=== PATIENT | female | born 1990 | race Caucasian/White ===

== ENCOUNTER 2018-05-01 11:17 | Emergency (ER) | payer OTHER ==
[2018-05-01 11:39] VITALS: BP 112/68
--- NOTE | 2018-05-01 12:13 | UC ---
Skin Complaint HPI - HPI Summary HPI Summary: 27 yo female presents with rash under left arm. She tells me that 2 days ago she noticed this red rash begin. Since that time has become mildly painful and seems to be spreading under her axilla. She also tells me that she is and that it is a "high-risk" . She denies fever, chills, or drainage/ bleeding from the site. - History of Current Complaint Chief Complaint: UCSkin Time Seen by Provider: 05/01/18 12:12 Stated Complaint: R[facility] Hx Obtained From: Patient Hx Last Menstrual Period: 07/03/15 Onset/Duration: Gradual Onset Skin Exposure Onset/Duration: Days Ago Timing: Constant Onset Severity: Mild Current Severity: Mild Pain Intensity: 4 Pain Scale Used: 0-10 Numeric - Allergy/Home Medications Allergies/Adverse Reactions: Allergies Allergy/AdvReac Type Severity Reaction Status Date / Time amoxicillin Allergy Hives Verified 05/01/18 11:31 cephalexin [From Keflex] Allergy Hives Verified 05/01/18 11:32 Home Medications: Home Medications Insulin GLARGINE(*) [Lantus(*)] 35 unit QAM 05/01/18 [History Confirmed 05/01/18 ] Vitamin TAB* 1 tab DAILY 05/01/18 [History Confirmed 05/01/18] metFORMIN* [Glucophage 1000 MG TAB *] 1,000 mg QPM 05/01/18 [History Confirmed 05/01/18] Review of Systems Constitutional: Negative Skin: Rash Eyes: Negative ENT: Negative Respiratory: Negative Cardiovascular: Negative Gastrointestinal: Negative Neurological: Negative Psychological: Negative All Other Systems Reviewed And Are Negative: Yes PMH/Surg Hx/FS Hx/Imm Hx Endocrine History: Diabetes - Surgical History Surgical History: Yes Surgery Procedure, Year, and Place: appy - Family History Known Family History: Positive: Diabetes - Social History Occupation: Employed Full-time Lives: With Family Alcohol Use: None Substance Use Type: None Smoking Status (MU): Heavy Every Day Tobacco Smoker Type: Cigarettes Amount Used/How Often: 1/2 pack daily Household Exposure Type: Cigarettes Physical Exam - Summary Physical Exam Summary: GENERAL: NAD. WDWN. No pain distress. SKIN: Moderate flat patch of erythema under the left axilla. No induration or edema. No streaking, bleeding, or drainage. NECK: Supple. Nontender. No lymphadenopathy. CHEST: No accessory muscle use. Breathing comfortably and in no distress. CV: RRR. Without m/r/g. NEURO: Alert. CN II-XII grossly intact. PSYCH: Age appropriate behavior. Triage Information Reviewed: Yes Vital Signs: Initial Vital Signs Temp 96.9 F 05/01/18 11:34 Pulse 99 05/01/18 11:34 Resp 18 05/01/18 11:34 BP 112/68 05/01/18 11:34 Pulse Ox 99 05/01/18 11:34 Course/Dx - Course Course Of Treatment: Suspect skin yeast infection - rx for nystatin cream. - Diagnoses Provider Diagnoses: Left axilla yeast infection Discharge - Sign-Out/Discharge Documenting (check all that apply): Discharge/Admit/Transfer - Discharge Plan Condition: Stable Disposition: HOME Prescriptions: Nystatin CREAM* [Nystatin Cream*] 1 applic TOPICAL BID #1 tube Patient Education Materials: Skin Yeast Infection (ED) Forms: *Work Release Referrals: Patricia Arnold NP [Primary Care Provider] - Additional Instructions: If you develop a fever, shortness of breath, chest pain, new or worsening symptoms - please call your PCP or go to the ED. - Billing Disposition and Condition Condition: STABLE Disposition: Home
== END 2018-05-01 12:32 | disposition home or self-care (01) ==
LOC: UCCORT 11:17
DX: O99.89 Other specified diseases and conditions complicating pregnancy, childbirth and the puerperium (principal); L04.2 Acute lymphadenitis of upper limb; O99.330 Smoking (tobacco) complicating pregnancy, unspecified trimester; F17.210 Nicotine dependence, cigarettes, uncomplicated; O24.919 Unspecified diabetes mellitus in pregnancy, unspecified trimester; Z79.4 Long term (current) use of insulin; Z88.0 Allergy status to penicillin
CPT/HCPCS: 99212; G0463

== ENCOUNTER 2018-05-20 20:41 | Emergency (ER) | payer OTHER ==
--- OUTSIDE RECORDS SUMMARY | 2018-05-20 20:51 | XMS REPORT ---
:1990 External Reference #:[id number] Author Organization [facility] Address [address], [address] [place] [address] Phone [phone] Care Team Providers Name Role Phone Khadar Arnold NP Care Team Information Double End Tenoner Operator Unavailable Khadar Arnold NP Primary Care Physician Unavailable Payers Type Date Identification Numbers Payment Provider Subscriber Commercial Effective: Policy Number: [id number] Renato Mann 2016 PayID: [id number] [address] [address] [place] [address] Problems Date Description Provider Status Onset: 12/17/2013 Tobacco user ERNESTO Lloyd Active Onset: 12/17/2013 Type II diabetes mellitus ERNESTO Lloyd Active uncontrolled Onset: 06/16/2013 Jenifer Pierson MD Inactive Inactive: 02/24/2015 Onset: 04/02/2015 Acute pharyngitis Jessica Ocasio MD Resolved Resolved: 10/15/2015 Onset: 07/22/2015 Bacterial vaginosis Resolved Resolved: 10/15/2015 Family History Date Family Member(s) Problem(s) Comments Onset: (age 50 Years) Father Stroke Father Hypertension Mother Anxiety Paternal Grandfather Diabetes Paternal Grandfather CHF with pacer Paternal Grandfather Cancer Paternal Grandmother due to Stomach Cancer () Maternal Grandfather Unknown Maternal Grandmother Diabetes Social History Type Date Description Comments Diet Diabetic 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[employer] [place] ETOH Use Rarely consumes alcohol Smoking Light tobacco smoker (10 or fewer cigarettes/day) Allergies, Adverse Reactions, Alerts Date Description Reaction Status Severity Comments 04/02/2015 Amoxicillin rash active 10/22/2015 Keflex Urticaria active 02/23/2015 NKDA inactive Medications Medication Date Status Form Strength Qnty SIG Indications Ordering Provider True Metrix Go 02/17 Active Kit w/Device 1unit use as [facility] Blood Glucose s directed Clune, MANUFACTURING PROCESS ENGINEER Meter for blood sugar monitoring True Metrix 02/17 Active Strips 150un use as [facility] Blood its directed Clune, MANUFACTURING PROCESS ENGINEER Glucosetest up to 5 Strips times daily for blood sugar testing Lancets Ultra 02/17 Active Misc Thin 30G 150un use up to [facility] Thin 30G its five times Clune, MANUFACTURING PROCESS ENGINEER daily and as needed for blood sugar testing Plus 01/23 Active Tablets 27-1mg 100ta 1 by mouth Z32.01 bs every day Clune, MANUFACTURING PROCESS ENGINEER *or generic equivalent Basaglar 04/13 Active Solution 100Unit/M 9ml inject 32 [facility] Pen-Injec L units Clune, MANUFACTURING PROCESS ENGINEER t subcutaneo usly every evening - *changed dose due to low morning sugars Wrist Brace 11/25 Active Misc 1unit use as G56.02 s directed Clune, MANUFACTURING PROCESS ENGINEER Wrist Brace 11/25 Active Misc 1unit use as G56.01 s directed Clune, MANUFACTURING PROCESS ENGINEER Pen [place] 09/10 Active Misc 30G X 8 100un use with [facility] mm its insulin Clune, MANUFACTURING PROCESS ENGINEER device as directed Metformin HCL 00 Active Tablets 1000mg 1 by mouth Unknown ER (Mod) /0000 ER 24HR every day Terbinafine 10/25 Hx Tablets 250mg 30tab one by B35.1 [facility] HCL s mouth Clune, MANUFACTURING PROCESS ENGINEER - every day 01/23 for month s Flagyl 08/16 Hx Tablets 500mg 14tab one by [facility] s mouth Clune, MANUFACTURING PROCESS ENGINEER - twice a 08/23 day x days Fluconazole 08/12 Hx Tablets 150mg 1tabs one by N76.0 [facility] mouth Clune, MANUFACTURING PROCESS ENGINEER - after 08/24 antibiotic s Sprintec 28 08/12 Hx Tablets 0.25-35mg 84tab 1 by mouth Z30.011 [facility] -mcg s every day ERNESTO Arnold - 01/20 Nystatin-Triam 05/06 Hx Ointment [id number]. 120gm apply to B37.2 [facility] cinolone 1Unit/GM- affected ERNESTO Arnold - % areas 01/20 under /2017 breasts, axilla and abdomen twice a day. Doxycycline 05/06 Hx Tablets 100mg 20tab 1 tabl by N63 [facility] Hyclate s mouth ERNESTO Arnold - twice a Levemir 04/10 Hx Solution 100Unit/M 4unit 30 units [facility] Flextouch Pen-Injec L s each ERNESTO Arnold - t evening - 04/13 increase dose by 2 units every 2-3 days until fasting sugars are below 120. Plus 08/19 Hx Tablets 27-1mg 100ta 1 by mouth Z32.01 bs every day ERNESTO Arnold - *or 05/06 equivalent Onetouch Ultra 08/19 Hx Strips 50uni [facility] and ERNESTO Arnold - as needed 02/17 testing blood sugars dx: e11.65 Simvastatin 11/25 Hx Tablets 40mg 30tab 1 by mouth E11.65 [facility] s every day ERNESTO Arnold - 08/19 Lisinopril 11/25 Hx Tablets 5mg 30tab 1 by mouth E11.65 [facility] s every day ERNESTO Arnold - 08/19 Nystatin 10/22 Hx Powder [id number] 45gm apply B37.2 Annemarie Avila, t/GM powder to M.D. - affected 08/19 area twice a day Cephalexin 10/15 Hx Capsules 500mg 30cap 1 cap ( or Annemarie Avila s tab) by M.D. - mouth 10/22 times a day Bactrim DS 10/15 Hx Tablets 800-160mg 14tab 1 tab by L02.818 Annemarie Margarita , s mouth M.D. - every 10 11/ Lantus 09/10 Hx Solution 100Unit/M QS 30 units Pen-Injec L each Clayton, MANUFACTURING PROCESS ENGINEER - t evening - 04/10 increase dose by 2 units every 2-3 days until fasting sugars are below 120. Fluconazole 09/09 Hx Tablets 150mg 4tabs one by R21 estebancarmenza mouth Clune, MANUFACTURING PROCESS ENGINEER - after 10/09 antibiotic s Lisinopril 09/09 Hx Tablets 5mg 30tab 1 by mouth E11.65 s every day Clayton MANUFACTURING PROCESS ENGINEER - 10/07 Metronidazole 07/22 Hx Tablets 500mg 14tab 2 Times A s Day - 07/30 Glyburide 07/02 Hx Tablets 2.5mg 30tab 1 by mouth s every day Clbin, MANUFACTURING PROCESS ENGINEER - *in 09/10 to 5 mg* Trazodone HCL 06/04 Hx Tablets 50mg 30tab 1 by mouth 308.3 s one hour Clayton, MANUFACTURING PROCESS ENGINEER - prior to 10/07 bed at night, if no better may try two Diflucan 06/04 Hx Tablets 150mg 7tabs take 1 by 782.1 esteban mouth once Clayton MANUFACTURING PROCESS ENGINEER - a day for 06/11 Glyburide 04/25 Hx Tablets 5mg 30tab 1 by mouth s every day Clbin, MANUFACTURING PROCESS ENGINEER - 04/25 Nystatin-Triam 04/15 Hx Ointment 470999-7. 60gm apply to R21 Khadar 1Unit/GM- affected Clune, MANUFACTURING PROCESS ENGINEER - % areas 09/09 under breasts and abdomen twice a day. Azithromycin 04/02 Hx Tablets 500mg 5tabs 1 po qd 462 Jessica Ocasio, MD - 04/15 Metformin HCL 03/12 Hx Tablets 1000mg 60tab 1 by mouth Crystal s twice a ERNESTO Arnold - day 04/02 Glimepiride 03/12 Hx Tablets 2mg 30tab one tab PO estebancarmenza s in am ERNESTO Arnold - 04/15 Fluconazole 02/06 Hx Tablets 150mg 2tabs take one tablet by MD Tanja - mouth now 04/15 and in 1 week Nystatin 02/06 Hx Cream [id number] 1unit apply to Chen t/GM s the MD Tanja - affected 04/15 area twice daily for 1 week Antipyrine-Erick 02/05 Hx Solution 5.5-1.4% 1unit 2-3 drops kirstie Chencaine s in the MD Tanja - left ear 04/15 3-4 times /2014 a day Plus 02/05 Hx Tablets 27-1mg 100ta 1 by mouth Gustavo bs every day MD Tanja - 04/15 Citalopram 09/12 Hx Tablets 20mg 30tab 1 po qd Jamee Piersonbroshelley s MD Jenifer - 04/15 Januvia 06/19 Hx Tablets 100mg 30tab 1 by mouth Dangelo s every day MD Jenifer - 04/02 Glyburide Hx Tablets 2.5mg 30tab take 1 Jenniferleigh / s tablet by ERNESTO Arnold - mouth 04/25 every Metformin HCL Hx Tablets 500mg 30tab [facility] ERNESTO Arnold - 04/25 Medications Administered in Office Medication Date Status Form Strength Qnty SIG Indications Ordering Provider PPD 08/02/ Administered Injection Khadar 2016 ERNESTO Arnold PPD 08/02/ Administered Injection Family Nurse 2016 Immunizations CPT Code Status Date Vaccine Lot # [id number] Given 08/04/2017 Influenza Virus Vaccine Quadrivalent Iiv4 [place] [id number] [id number] Given 05/06/2017 Tdap injection [id number] Vital Signs Date Vital Result Comment 04/25/2018 BP Systolic Sitting Left Arm 116 mmHg BP Diastolic Sitting Left Arm 72 mmHg Heart Rate 80 /min Respiratory Rate 18 /min Height 60 inches 5'0" Weight 219.00 lb BMI (Body Mass Index) 42.8 kg/m2 BSA (Body Surface Area) 1.94 m2 [place] body weight in kilograms 45 01/23/2018 BP Systolic Sitting Left Arm 116 mmHg BP Diastolic Sitting Left Arm 76 mmHg Heart Rate 78 /min Respiratory Rate 18 /min Height 60 inches 5'0" Weight 245.00 lb BMI (Body Mass Index) 47.8 kg/m2 BSA (Body Surface Area) 2.03 m2 [place] body weight in kilograms 45 01/20/2018 BP Systolic Sitting Left Arm 118 mmHg BP Diastolic Sitting Left Arm 72 mmHg Heart Rate 78 /min Respiratory Rate 18 /min Height 60 inches 5'0" Weight 247.00 lb BMI (Body Mass Index) 48.2 kg/m2 BSA (Body Surface Area) 2.04 m2 [place] body weight in kilograms 45 09/15/2017 BP Systolic Sitting Left Arm 152 mmHg BP Diastolic Sitting Left Arm 94 mmHg Heart Rate 88 /min Respiratory Rate 18 /min Height 60 inches 5'0" Weight 239.00 lb BMI (Body Mass Index) 46.7 kg/m2 BSA (Body Surface Area) 2.01 m2 [place] body weight in kilograms 45 Last Menstrual Period [id number] 08/12/2017 BP Systolic Sitting Left Arm 128 mmHg BP Diastolic Sitting Left Arm 76 mmHg Heart Rate 72 /min Respiratory Rate 18 /min Height 60 inches 5'0" Weight 239.00 lb BMI (Body Mass Index) 46.7 kg/m2 BSA (Body Surface Area) 2.01 m2 [place] body weight in kilograms 45 Last Menstrual Period [id number] 08/04/2017 BP Systolic 124 mmHg BP Diastolic 82 mmHg Body Temperature 97.1 F Heart Rate 108 /min Height 60 inches 5'0" Weight 239.00 lb BMI (Body Mass Index) 46.7 kg/m2 BSA (Body Surface Area) 2.01 m2 [place] body weight in kilograms 45 Last Menstrual Period [id number] O2 % BldC Oximetry 95 % 05/06/2017 BP Systolic Sitting Left Arm 118 mmHg BP Diastolic Sitting Left Arm 72 mmHg Heart Rate 80 /min Respiratory Rate 18 /min Height 60 inches 5'0" Weight 240.00 lb BMI (Body Mass Index) 46.9 kg/m2 BSA (Body Surface Area) 2.02 m2 [place] body weight in kilograms 45 Last Menstrual Period [id number] 08/19/2016 BP Systolic Sitting Left Arm 116 mmHg BP Diastolic Sitting Left Arm 70 mmHg Heart Rate 88 /min Respiratory Rate 18 /min Height 60 inches 5'0" Weight 239.12 lb BMI (Body Mass Index) 46.7 kg/m2 BSA (Body Surface Area) 2.01 m2 [place] body weight in kilograms 45 Last Menstrual Period [id number] 11/25/2015 BP Systolic 130 mmHg BP Diastolic 78 mmHg Body Temperature 97.6 F Heart Rate 88 /min Weight 240.50 lb 10/22/2015 BP Systolic 120 mmHg BP Diastolic 72 mmHg Body Temperature 97.9 F Height 60 inches 5'0" Weight 239.00 lb BMI (Body Mass Index) 46.7 kg/m2 BSA (Body Surface Area) 2.01 m2 10/15/2015 BP Systolic 118 mmHg BP Diastolic 72 mmHg Body Temperature 98.3 F Height 60 inches 5'0" Weight 236.38 lb BMI (Body Mass Index) 46.2 kg/m2 BSA (Body Surface Area) 2.00 m2 Last Menstrual Period [id number] 10/07/2015 BP Systolic 132 mmHg BP Diastolic 82 mmHg Height 60 inches 5'0" Weight 239.00 lb BMI (Body Mass Index) 46.7 kg/m2 BSA (Body Surface Area) 2.01 m2 Last Menstrual Period [id number] 09/09/2015 BP Systolic 120 mmHg BP Diastolic 78 mmHg Heart Rate 86 /min Respiratory Rate 20 /min Weight 234.50 lb 06/04/2015 BP Systolic Sitting Left Arm 116 mmHg BP Diastolic Sitting Left Arm 74 mmHg Height 60 inches 5'0" Weight 233.00 lb BMI (Body Mass Index) 45.5 kg/m2 BSA (Body Surface Area) 1.99 m2 04/15/2015 BP Systolic Sitting Left Arm 128 mmHg BP Diastolic Sitting Left Arm 78 mmHg Body Temperature 98.0 F Height 60 inches 5'0" Weight 236.00 lb BMI (Body Mass Index) 46.1 kg/m2 BSA (Body Surface Area) 2.00 m2 04/02/2015 BP Systolic Sitting Left Arm 132 mmHg BP Diastolic Sitting Left Arm 74 mmHg Body Temperature 100.1 F Height 60 inches 5'0" Weight 236.00 lb BMI (Body Mass Index) 46.1 kg/m2 BSA (Body Surface Area) 2.00 m2 02/05/2015 BP Systolic 136 mmHg BP Diastolic 84 mmHg Weight 241.00 lb 11/04/2014 BP Systolic 128 mmHg BP Diastolic 74 mmHg Body Temperature 97.9 F Weight 244.00 lb 07/24/2014 BP Systolic 118 mmHg BP Diastolic 72 mmHg Body Temperature 97.2 F Height 60 inches 5'0" Weight 252.00 lb 07/05/2014 BP Systolic 120 mmHg BP Diastolic 76 mmHg Body Temperature 98.0 F Weight 253.00 lb 06/19/2014 BP Systolic 132 mmHg BP Diastolic 80 mmHg Height 60 inches 5'0" Weight 252.00 lb 06/05/2014 Height 60 inches 5'0" Weight 256.00 lb 05/15/2014 BP Systolic 124 mmHg BP Diastolic 74 mmHg Height 60 inches 5'0" Weight 256.00 lb 04/15/2014 BP Systolic 130 mmHg BP Diastolic 80 mmHg Height 60 inches 5'0" Weight 254.00 lb 01/02/2014 BP Systolic 112 mmHg BP Diastolic 70 mmHg Height 60 inches 5'0" Weight 259.00 lb 12/24/2013 BP Systolic 120 mmHg BP Diastolic 74 mmHg Height 60 inches 5'0" Weight 259.00 lb 12/17/2013 BP Systolic 108 mmHg BP Diastolic 64 mmHg Height 60 inches 5'0" Weight 258.00 lb 11/27/2013 BP Systolic 124 mmHg BP Diastolic 76 mmHg Height 60 inches 5'0" Weight 254.00 lb 11/16/2013 BP Systolic 140 mmHg 130/90 repeat left BP Diastolic 100 mmHg 130/90 repeat left Heart Rate 76 /min Weight 256.00 lb Results Test Date Test Result H/L Range Note Urine Dipstick 04/25/2018 Ua Color <pending> Yellow Ua Clarity <pending> Clear Ua Leuko <pending> Negative Ua Nitrite <pending> Negative Ua Urobilinogen <pending> 0.2 - 1.0 E.U./dL Ua Protein 1+ High Negative Ua PH <pending> 6.5-7.5 Ua Blood <pending> Negative Ua Specific [place] 1.030 1.010-1.030 Ua Ketones large Negative Ua Bilirubin <pending> Negative Ua Glucose <pending> Negative Laboratory test 02/15/2018 HCG,Serum (Qualitative) POSITIVE (Negative) 1 , 2 finding HCG, Quant 28209.0 mIU/mL 1, 3 CBS W/Automated Diff 02/15/2018 White Blood Count 19.1 K/uL High 3.1-10.7 1 Red Blood Count 5.15 M/uL 3.90-5.40 1 Hemoglobin 15.9 gm/dL High 11.6-15.8 1 Hematocrit 45.5 % 36.0-46.1 1 Mean Cell Volume 88.3 fl 80.9-99.0 1 Mean Corpuscular HGB 30.9 pg 25.9-32.7 1 Mean Corpuscular HGB Conc 34.9 g/dL High 30.8-34.3 1 Platelet Count 379 K/uL High 155-360 1 Red Cell Distri Width SD 45.3 fl 3-47 1 Red Cell Distri Width %CV 14.2 % 11.7-14.4 1 Mean Platelet Volume 10.6 fL 8.9-12.4 1 Neut% 75.6 % High 40.4-72.8 1 Lymph % 16.3 % Low 20.0-42.0 1 [place] % 6.3 % 4.3-13.2 1 Eo% 1.6 % 0.0-6.6 1 Bas% 0.2 % 0.0-1.1 1 Neut# 14.44 K/uL High 1.8-7.0 1 Lymph # 3.11 K/uL 1.0-4.0 1 [place] # 1.21 K/uL High 0.3-0.9 1 Eos # 0.31 K/uL 0.0-0.5 1 Baso # 0.03 K/uL 0.0-0.1 1 Slide Review 02/15/2018 Slide Review DIFF ORDERED 1 Differential-WBC Confirm 02/15/2018 Total Cells Counted 100 #CELLS 1 Band% 4 % 0-8 1 Neutrophils% 76 % High 33-73 1 Lymph% 12 % Low 20-42 1 Atypical Lymph% 1 % 0-7 1 Monocyte% 6 % 0-10 1 Eosinophil% 1 % 0-5 1 Platelet Estimate NORMAL 1 Poikilocytosis 0-1+ 1 Anisocytosis 0-1+ 1 Toxic Granulation 0-1+ 1, 4 Ua RFX Micro & Culture II 02/15/2018 Urine Color YELLOW Yellow 1 Urine Clarity CLEAR Clear 1 Urine Glucose - Dipstick NEGATIVE mg/dL Negative 1 Urine Bilirubin - Dipstick NEGATIVE Negative 1 Urine Ketone >=80 mg/dL High Negative 1 Urine Specific [place] 1.010 1.010-1.030 1 Urine Blood NEGATIVE Negative 1 Urine PH 6.0 Low 6.5-7.5 1 Urine Protein - Dipstick NEGATIVE mg/dL Negative 1 Urine Urobilinogen - Dipstick 0.2 E.U./dL 0.2-1.0 1 Urine Nitrite - Dipstick NEGATIVE Negative 1 Urine Leuk Esterase TRACE Negative 1 Urine RBC 0-2 rbc/hpf 0-2 1 Urine WBC 0-2 wbc/hpf 0-7 1 Urine Epithelial Cells FEW /lpf None Seen 1 Urine Bacteria FEW None Seen 1 Source: URINE, CLEAN CAT <SEE NOTE> 1, 5 Chlamydia/GC Mary, Urine 02/15/2018 Chlamydia Trachomatis,Ur Negative Negative 1 -PCR Neisseria Gonorrhoeae,Ur -PCR Negative Negative 1, 6 Aot Request 02/15/2018 Aot Request Unable to add te <SEE NOTE> 1, 7 Tests to be added: BMP 1 Basic Metabolic Panel 02/15/2018 Glucose 65 mg/dL Low 74-106 1 BUN 8 mg/dL 7-18 1 Creatinine 0.4 mg/dL Low 0.6-1.3 1 Glom Filtration Rate, Estimate >60 mL/min >60 1 If >60 mL/min >60 1, 8 BUN/Creat 20.0 ratio 1 Sodium 138 mmol/L 136-145 1 Potassium 3.8 mmol/L 3.5-5.1 1 Chloride 111 mmol/L High 98-107 1 Carbon Dioxide 16 mmol/L Low 21-32 1 Anion Gap 11 mEq/L 8-16 1 Calcium 8.9 mg/dL 8.5-10.1 1 Laboratory test 02/01/2018 HCG, Quant 4860.0 9, 10 finding mIU/mL Laboratory test 01/25/2018 HCG, Quant 471.0 mIU/mL 11, 12 finding Glycohemoglobin A1c 01/20/2018 Glycohemoglobin (A1c) 9.5 % High 4.2-6. 13 , 14 3 eAG 226 mg/dL 13 Fungal Culture With 09/28/2017 Fungal Fluorochrome Stain Fungus Stain 15, 16 Smear Fungal Culture; Other Sources Fungus (Mycology <SEE NOTE> 15, 17 Glycohemoglobin A1c 09/15/2017 Glycohemoglobin (A1c) 10.8 % High 4.2-6.3 18, 19 eAG 263 mg/dL 18 Affirm Vaginitis Panel 08/12/2017 Trichomonas vaginalis Negative [ Negative] 20 Gardnerella vaginalis POSITIVE High [Negative] 20 Tammie species Negative [Negative] 20, 21 Comprehensive Metabolic Panel 05/06/2017 Glucose 168 mg/dL High 74-106 22 BUN 10 mg/dL 7-18 22 Creatinine 0.7 mg/dL 0.6-1.3 22 Glom Filtration Rate, Estimate >60 mL/min >60 22 If >60 mL/min >60 22, 23 BUN/Creat 14.2 ratio 22 Sodium 138 mmol/L 136-145 22 Potassium 4.0 mmol/L 3.5-5.1 22 Chloride 106 mmol/L 98-107 22 Carbon Dioxide 24 mmol/L 21-32 22 Anion Gap 8 mEq/L 8-16 22 Calcium 9.0 mg/dL 8.5-10.1 22 Total Protein 7.7 g/dL 6.4-8.2 22 Albumin 3.5 g/dL 3.4-5.0 22 Globulin 4.2 g/dL 1.9-4.3 22 Alb/Glob 0.8 ratio 22 Bilirubin,Total 0.3 mg/dL 0.2-1.0 22 Sgot/Ast 10 U/L Low 15-37 22, 24 SGPT/Alt 28 U/L 12-78 22 Alkaline Phosphatase 111 U/L 45-117 22 Glycohemoglobin A1c 05/06/2017 Glycohemoglobin (A1c) 8.2 % High 4.2-6.3 22, 25 eAG 189 mg/dL 22 LDL Cholesterol Profile 05/06/2017 Cholesterol 207 mg/dL High <200 22, 26 Triglycerides 206 mg/dL High <150 22, 27 HDL Cholesterol 45 mg/dL >40 22, 28 LDL-Cholesterol 121 mg/dL < 100 22, 29 Microalbumin,Random Urine 05/06/2017 Microalbumin,Urine 28.3 mg/L < 20.0 22 Laboratory test finding 08/11/2016 HCG, Quant 1221.0 30, 31 mIU/mL CBS W/Automated Diff 08/11/2016 White Blood Count 11.2 K/uL High 3.1-10.7 30 Red Blood Count 4.52 M/uL 3.90-5.40 30 Hemoglobin 14.2 gm/dL 11.6-15.8 30 Hematocrit 41.1 % 36.0-46.1 30 Mean Cell Volume 90.9 fl 80.9-99.0 30 Mean Corpuscular HGB 31.4 pg 25.9-32.7 30 Mean Corpuscular HGB Conc 34.5 g/dL High 30.8-34.3 30 Platelet Count 298 K/uL 155-360 30 Red Cell Distri Width SD 42.6 fl 3-47 30 Red Cell Distri Width %CV 13.1 % 11.7-14.4 30 Mean Platelet Volume 10.8 fL 8.9-12.4 30 Neut% 68.4 % 40.4-72.8 30 Lymph % 21.3 % 17.0-46.1 30 [place] % 7.6 % 4.3-13.2 30 Eo% 2.4 % 0.0-6.6 30 Bas% 0.3 % 0.0-1.1 30 Neut# 7.65 K/uL High 1.8-7.0 30 Lymph # 2.38 K/uL 1.8-7.0 30 [place] # 0.85 K/uL 0.3-0.9 30 Eos # 0.27 K/uL 0.0-0.5 30 Baso # 0.03 K/uL 0.0-0.1 30 Slide Review 08/11/2016 Slide Review (SEE NOTE) 30, 32 Glycohemoglobin A1c 11/25/2015 Glycohemoglobin (A1c) 9.2 % High 4.2-6.3 33 eAG 217 mg/dL CMP Panel (14 Test) 11/25/2015 Glucose 157 mg/dL High 74-106 BUN 11 mg/dL 7-18 Creatinine 0.7 mg/dL 0.6-1.3 Glom Filtration Rate, Estimate >60 mL/min >60 If >60 mL/min >60 34 BUN/Creat 15.7 ratio Sodium 138 mmol/L 136-145 Potassium 4.0 mmol/L 3.5-5.1 Chloride 107 mmol/L 98-107 Carbon Dioxide 26 mmol/L 21-32 Anion Gap 5 mEq/L Low 8-16 Calcium 8.4 mg/dL Low 8.5-10.1 Total Protein 7.1 g/dL 6.4-8.2 Albumin 3.3 g/dL Low 3.4-5.0 Globulin 3.8 g/dL 1.9-4.3 Alb/Glob 0.9 ratio Bilirubin,Total 0.3 mg/dL 0.2-1.0 Sgot/Ast 8 U/L Low 15-37 35 SGPT/Alt 18 U/L 12-78 Alkaline Phosphatase 85 U/L 45-117 Routine Culture W/ Gram Stain 10/15/2015 Gram Stain See Note 36 Aerobic Culture See Note 37 Laboratory test finding 10/07/2015 Conventional Pap HR- 38 Glycohemoglobin A1c 09/09/2015 Glycohemoglobin (A1c) 9.8 % High 4.2-6.3 39 eAG 235 mg/dL Comprehensive Metabolic Panel 09/09/2015 Glucose 301 mg/dL High 74-106 BUN 13 mg/dL 7-18 Creatinine 1.0 mg/dL 0.6-1.3 Glom Filtration Rate, Estimate >60 mL/min >60 If >60 mL/min >60 40 BUN/Creat 13.0 ratio Sodium 136 mmol/L 136-145 Potassium 3.9 mmol/L 3.5-5.1 Chloride 104 mmol/L 98-107 Carbon Dioxide 24 mmol/L 21-32 Anion Gap 8 mEq/L 8-16 Calcium 9.4 mg/dL 8.5-10.1 Total Protein 7.4 g/dL 6.4-8.2 Albumin 3.6 g/dL 3.4-5.0 Globulin 3.8 g/dL 1.9-4.3 Alb/Glob 0.9 ratio Bilirubin,Total 0.4 mg/dL 0.2-1.0 Sgot/Ast 14 U/L Low 15-37 41 SGPT/Alt 23 U/L 12-78 Alkaline Phosphatase 109 U/L 45-117 Laboratory test finding 09/09/2015 Estimated Average Glucose (eAG) 235 Hemoglobin A1c 9.8 High 4.2-6.3 Sodium Level 136 136-145 Chlamydia/GC Mary 07/22/2015 Chlamydia Trachomatis, Mary Negative Negative Neisseria Gonorrhoeae, Mary Negative Negative Please note: See Note 42 Laboratory test finding 07/22/2015 Bedside Glucose 280 High 70-110 Laboratory test finding 07/22/2015 Chlamydia/GC Mary, Urine See Note 43 Urine HCG (Qualitative) NEGATIVE Negative 44 Urine Screen 07/22/2015 Urine Color STRAW Yellow Urine Clarity SL CLOUDY Clear Urine Glucose - Dipstick >=1000 mg/dL High Negative Urine Bilirubin - Dipstick NEGATIVE Negative Urine Ketone NEGATIVE mg/dL Negative Urine Specific [place] 1.010 1.010-1.030 Urine Blood NEGATIVE Negative Urine PH 7.5 6.5-7.5 Urine Protein - Dipstick NEGATIVE mg/dL Negative Urine Urobilinogen - Dipstick 0.2 E.U./dL 0.2-1.0 Urine Nitrite - Dipstick NEGATIVE Negative Urine Leuk Esterase NEGATIVE Negative Laboratory test finding 07/22/2015 Urine Bilirubin Negative Negative Urine Ketones Negative Negative Urine Leukocyte Esterase Negative Negative Urine Nitrite Negative Negative Urine Protein Negative Negative Urine Urobilinogen 0.2 0.2-1.0 Laboratory test finding 07/22/2015 Point of Care Glucose 385 mg/dL High 74 -106 45 Laboratory test finding 06/04/2015 Microalbumin,Random See Note 46 Urine Glycohemoglobin A1c 06/04/2015 Glycohemoglobin (A1c) 8.5 % High 4.2-6.3 47 eAG 197 mg/dL Glycohemoglobin A1c 04/15/2015 Glycohemoglobin (A1c) 10.0 % High 4.2-6.3 48 eAG 240 mg/dL Laboratory test finding 04/02/2015 Throat Strep Screen See Note 49 Basic Metabolic Panel 03/15/2015 Glucose 436 mg/dL High 74-106 50 BUN 10 mg/dL 7-18 Creatinine 0.9 mg/dL 0.6-1.3 Glom Filtration Rate, Estimate >60 mL/min >60 If >60 mL/min >60 51 BUN/Creat 11.1 ratio Sodium 138 mmol/L 136-145 Potassium 4.2 mmol/L 3.5-5.1 Chloride 104 mmol/L 98-107 Carbon Dioxide 23 mmol/L 21-32 Anion Gap 11 mEq/L 8-16 Calcium 8.4 mg/dL Low 8.5-10.1 Laboratory test 03/15/2015 HCG,Serum(Qualitative) NEGATIVE (Negative) 52 finding Glycohemoglobin A1c 03/15/2015 Glycohemoglobin (A1c) 11.5 % High 4.2-6.3 53 eAG 283 mg/dL CBS W/Automated Diff 03/15/2015 White Blood Count 11.0 K/uL High 3.1-10.7 Red Blood Count 5.09 M/uL 3.90-5.40 Hemoglobin 15.9 gm/dL High 11.6-15.8 Hematocrit 44.9 % 36.0-46.1 Mean Cell Volume 88.2 fl 80.9-99.0 Mean Corpuscular HGB 31.2 pg 25.9-32.7 Mean Corpuscular HGB Conc 35.4 g/dL High 30.8-34.3 Platelet Count 326 K/uL 155-360 Red Cell Distri Width SD 40.8 fl 3-47 Red Cell Distri Width %CV 12.9 % 11.7-14.4 Mean Platelet Volume 11.1 fL 8.9-12.4 Neut% 68.8 % 40.4-72.8 Lymph % 19.6 % 17.0-46.1 [place] % 7.7 % 4.3-13.2 Eo% 3.4 % 0.0-6.6 Bas% 0.5 % 0.0-1.1 Neut# 7.56 K/uL High 1.0-7.0 Lymph # 2.16 K/uL 1.8-7.0 [place] # 0.85 K/uL 0.3-0.9 Eos # 0.37 K/uL 0.0-0.5 Baso # 0.06 K/uL 0.0-0.1 Urinalysis With Microscopic 03/15/2015 Urine Color YELLOW Yellow Urine Clarity CLEAR Clear Urine Glucose - Dipstick >=1000 mg/dL High Negative Urine Bilirubin - Dipstick NEGATIVE Negative Urine Ketone NEGATIVE mg/dL Negative Urine Specific [place] 1.010 1.010-1.030 Urine Blood MODERATE High Negative Urine PH 6.5 6.5-7.5 Urine Protein - Dipstick NEGATIVE mg/dL Negative Urine Urobilinogen - Dipstick 0.2 E.U./dL 0.2-1.0 Urine Nitrite - Dipstick NEGATIVE Negative Urine Leuk Esterase NEGATIVE Negative Urine RBC 0-2 rbc/hpf 0-2 Urine WBC 0-2 wbc/hpf 0-7 Urine Epithelial Cells FEW NONESEEN/lpf Urine Bacteria VERY FEW NONESEEN Laboratory test finding 03/15/2015 Urine Screen See Note 54 Affirm 02/05/2015 Tammie species Positive High [Negative] Gardnerella vaginalis Negative [Negative] Trichomonas vaginalis Negative [Negative] Laboratory test finding 02/05/2015 Microalbumin,Random Urine 35.9 mg/L < 20.0 55 CBC/Manual Differential 02/05/2015 Atypical Lymph% 3 % 0-7 55 Band% 2 % 0-8 55 Eosinophil% 1 % 0-5 55 Hematocrit 45.6 % 36.0-46.1 55 Hemoglobin 15.5 gm/dL 11.6-15.8 55 Lymph% 18 % 17-56 55 Mean Cell Volume 89.1 fl 80.9-99.0 55 Mean Corpuscular HGB 30.3 pg 25.9-32.7 55 Mean Corpuscular HGB Conc 34.0 g/dL 30.8-34.3 55 Mean Platelet Volume 10.9 fL 8.9-12.4 55 Monocyte% 2 % 0-10 55 Neutrophils% 74 % High 33-73 55 Platelet Count 302 K/uL 155-360 55 Platelet Estimate Normal 55 RBC Morphology Normal 55 Red Blood Count 5.12 M/uL 3.90-5.40 55 Red Cell Distri Width %CV 13.1 % 11.7-14.4 55 Total Cells Counted 100 #CELLS 55 White Blood Count 10.4 K/uL 3.1-10.7 55 Comprehensive Metabolic Panel 02/05/2015 Alb/Glob 0.9 ratio 55 Albumin 3.5 g/dL 3.4-5.0 55 Alkaline Phosphatase 101 U/L 45-117 55 Anion Gap 10 mEq/L 8-16 55 BUN 8 mg/dL 7-18 55 BUN/Creat 10.0 ratio 55 Bilirubin,Total 0.3 mg/dL 0.2-1.0 55 Calcium 9.0 mg/dL 8.5-10.1 55 Carbon Dioxide 24 mmol/L 21-32 55 Chloride 105 mmol/L 98-107 55 Creatinine 0.8 mg/dL 0.6-1.3 55 Globulin 3.7 g/dL 1.9-4.3 55 Glom Filtration Rate, Estimate >60 mL/min >60 55 Glucose 254 mg/dL High 74-106 55 If >60 mL/min >60 55, 56 Potassium 3.9 mmol/L 3.5-5.1 55 SGPT/Alt 16 U/L 12-78 55 Sgot/Ast 9 U/L Low 15-37 55, 57 Sodium 139 mmol/L 136-145 55 Total Protein 7.2 g/dL 6.4-8.2 55 Glycohemoglobin A1c 02/05/2015 Glycohemoglobin (A1c) 11.7 % High 4.2-6.3 55, 58 eAG 289 mg/dL 55 LDL Cholesterol Profile 02/05/2015 Cholesterol 193 mg/dL < 200 55, 59 HDL Cholesterol 32 mg/dL > 40 55, 60 LDL-Cholesterol 116 mg/dL < 100 55, 61 Triglycerides 226 mg/dL < 150 55, 62 Laboratory test finding 07/24/2014 HPV High Risk Negative Negative 63 Laboratory test finding 07/24/2014 Cervical Biopsy See Note 64 Laboratory test finding 07/24/2014 ThinPrep Pap: See Note 65 Cervix/Endocx Affirm 07/05/2014 Tammie Negative 66 Gardnerella Negative Trichomonas Negative Laboratory test finding 07/05/2014 Microalbumin,Random Urine 18.4 mg/L 0.0-18.5 Urine Culture See Note 67 Glycohemoglobin A1c 07/05/2014 Glycohemoglobin (A1c) 10.1 % High 4.8-6.0 68 eAG 243 mg/dL Laboratory test finding 06/19/2014 Urine Culture See Note 69 Laboratory test finding 05/13/2014 HCG, Quant 33.0 mIU/mL 70 Laboratory test finding 05/08/2014 Bas% 0.2 % 0.0-1.1 Baso # 0.03 K/uL 0.0-0.1 Eo% 1.1 % 0.0-6.6 Eos # 0.16 K/uL 0.0-0.5 HCG, Quant 952.0 mIU/mL 71 Hematocrit 41.0 % 36.0-46.1 Hemoglobin 14.6 gm/dL 11.6-15.8 Lymph # 2.30 K/uL 0.8-3.4 Lymph % 15.3 % Low 17.0-46.1 Mean Cell Volume 88.4 fl 80.9-99.0 Mean Corpuscular HGB 31.5 pg 25.9-32.7 Mean Corpuscular HGB Conc 35.6 g/dL High 30.8-34.3 Mean Platelet Volume 10.1 fL 8.9-12.4 [place] # 0.96 K/uL High 0.3-0.9 [place] % 6.4 % 4.3-13.2 Neut# 11.59 K/uL High 1.0-7.0 Neut% 77.0 % High 40.4-72.8 Platelet Count 329 K/uL 155-360 Red Blood Count 4.64 M/uL 3.90-5.40 Red Cell Distri Width %CV 13.5 % 11.7-14.4 Red Cell Distri Width SD 43.0 fl 3-47 White Blood Count 15.0 K/uL High 3.1-10.7 Comprehensive Metabolic Panel 05/08/2014 Alb/Glob 0.8 ratio Albumin 3.5 g/dL 3.5-5.0 Alkaline Phosphatase 88 U/L 50-136 Anion Gap 13 mEq/L 8-16 BUN 5 mg/dL 5-23 BUN/Creat 7.1 ratio Bilirubin,Total 0.3 mg/dL 0.2-1.2 Calcium 8.6 mg/dL 8.5-10.1 Carbon Dioxide 22 mEq/L 18-29 Chloride 107 mmol/L 98-107 Creatinine 0.7 mg/dL 0.5-1.4 Globulin 4.2 g/dL 1.9-4.3 Glom Filtration Rate, Estimate >60 mL/min >60 Glucose 144 mg/dL High 76-115 If >60 mL/min >60 72 Potassium 3.8 mmol/L 3.5-5.1 SGPT/Alt 24 U/L Low 30-65 Sgot/Ast 8 U/L Low 16-40 Sodium 138 mmol/L 136-145 Total Protein 7.7 g/dL 6.3-8.0 Laboratory test finding 05/08/2014 Urine Screen See Note 73 Urinalysis With Microscopic 05/08/2014 Urine Amorph Sediment Very Few Negative Urine Bacteria Very Few None Seen Urine Bilirubin - Dipstick Negative Negative Urine Blood Large High Negative Urine Clarity SL Cloudy Clear Urine Color Yellow Yellow Urine Epithelial Cells Very Few None Seen /lpf Urine Glucose - Dipstick Negative mg/dL Negative Urine Ketone Trace mg/dL High Negative Urine Leuk Esterase Small High Negative Urine Nitrite - Dipstick Negative Negative Urine PH 6.0 Low 6.5-7.5 Urine Protein - Dipstick Trace mg/dL Negative Urine RBC >50 rbc/hpf High 0-7 Urine Specific [place] <=1.005 Low 1.010-1.030 Urine Urobilinogen - Dipstick 0.2 E.U./dL 0.2-1.0 Urine WBC 2-5 wbc/hpf 0-7 Laboratory test finding 01/01/2014 Abo/RH Type See Note 74 Culture If Indicated Comment See Note 75 HCG, Quant 3111.0 mIU/mL 76 Urine Culture See Note 77 Urine HCG (Qualitative) See Note 78 Urine Screen See Note 79 Urinalysis With Microscopic 01/01/2014 Urine Bacteria Many None Seen High Urine Bilirubin - Dipstick Negative Negative Urine Blood Large High Negative Urine Clarity Clear Clear Urine Color Yellow Yellow Urine Epithelial Cells Few None Seen /lpf Urine Glucose - Dipstick 100 mg/dL High Negative Urine Ketone 15 mg/dL High Negative Urine Leuk Esterase Trace High Negative Urine Nitrite - Dipstick Positive High Negative Urine PH 6.0 Low 6.5-7.5 Urine Protein - Dipstick Negative mg/dL Negative Urine RBC 10-20 rbc/hpf High 0-7 Urine Specific [place] 1.025 1.010-1.030 Urine Urobilinogen - Dipstick 0.2 E.U./dL 0.2-1.0 Urine WBC 0-2 wbc/hpf 0-7 GC / Chlamydia 11/16/2013 Chlamydia Negative GC Negative 80 Affirm 11/16/2013 Tammie Negative 81 Gardnerella Positive Trichomonas Negative Laboratory test finding 11/16/2013 Hemoglobin A1c 9.9 % High Less than 6.0 82 Insulin Level 41.9 mcIU/mL 2.6 - 24.9 83 TSH (Thyroid Stimulating Horm) 1.55 miu/mL 0.34-5.60 Vitamin D 1,25-Dihydroxy 52 pg/mL 18-78 84 Comp Metabolic Panel 11/16/2013 Albumin 3.5 g/dL Low 3.6-5.4 Albumin/Globulin Ratio 1.3 1-3 Alkaline Phosphatase 83 U/L 30-110 Alt 18 U/L 14-54 Anion Gap 7.0 mmol/L 2-11 Ast 16 U/L 12-42 BUN/Creatinine Ratio 15.0 8-20 Blood Urea Nitrogen 9 mg/dL 6-24 Calcium 9.2 mg/dL 8.1-9.9 Chloride 102 mmol/L 101-111 Co2 Carbon Dioxide 24.0 mmol/L 22-32 Creatinine 0.60 mg/dL 0.50-1.40 Egfr 156.7 >60 85 Egfr Non- 121.8 >60 Globulin 2.8 g/dL 2-4 Glucose 359 mg/dL High 70-100 Potassium 4.0 mmol/L 3.5-5.0 Sodium 133 mmol/L 133-145 Total Bilirubin 0.3 mg/dL Low 0.4-1.5 Total Protein 6.3 g/dL 6.2-8.1 Lipid Profile (Trig/Chol/HDL) 11/16/2013 Cholesterol 270 mg/dL High Less than 200 Cholesterol/HDL Ratio 5.7 Average High 1-4.44 HDL Cholesterol 47 mg/dL 40-60 86 LDL Cholesterol (See Note) Less Than 100 87 Triglycerides 492 mg/dL High 40-200 Laboratory test finding 06/26/2013 Bas% 0.2 % 0.0-1.1 Baso # 0.03 K/uL 0.0-0.1 Eo% 2.6 % 0.0-6.6 Eos # 0.38 K/uL 0.0-0.5 HCG, Quant 1594.0 mIU/mL 88 Hematocrit 40.3 % 36.0-46.1 Hemoglobin 14.1 gm/dL 11.6-15.8 Lymph # 2.07 K/uL 0.8-3.4 Lymph % 14.1 % Low 17.0-46.1 Mean Cell Volume 89.8 fl 80.9-99.0 Mean Corpuscular HGB 31.4 pg 25.9-32.7 Mean Corpuscular HGB Conc 35.0 g/dL High 30.8-34.3 Mean Platelet Volume 10.4 fL 8.9-12.4 [place] # 0.96 K/uL High 0.3-0.9 [place] % 6.6 % 4.3-13.2 Neut# 11.21 K/uL High 1.0-7.0 Neut% 76.5 % High 40.4-72.8 Platelet Count 325 K/uL 155-360 Red Blood Count 4.49 M/uL 3.90-5.40 Red Cell Distri Width %CV 12.8 % 11.7-14.4 Red Cell Distri Width SD 41.4 fl 3-47 White Blood Count 14.7 K/uL High 3.1-10.7 Laboratory test finding 06/26/2013 Products Of Conception See Note 89 Urinalysis With 06/25/2013 Urine Bilirubin - Negative Negative Microscopic Dipstick Urine Blood Large High Negative Urine Clarity Clear Clear Urine Color Straw Yellow Urine Epithelial Cells Very Few None Seen /lpf Urine Glucose - Dipstick Negative mg/dL Negative Urine Ketone Negative mg/dL Negative Urine Leuk Esterase Negative Negative Urine Nitrite - Dipstick Negative Negative Urine PH 6.0 Low 6.5-7.5 Urine Protein - Dipstick Negative mg/dL Negative Urine RBC 10-20 rbc/hpf High 0-7 Urine Specific [place] 1.010 1.010-1.030 Urine Urobilinogen - Dipstick 0.2 E.U./dL 0.2-1.0 Urine WBC 2-5 wbc/hpf 0-7 Laboratory test finding 06/25/2013 Bas% 0.3 % 0.0-1.1 Baso # 0.03 K/uL 0.0-0.1 Eo% 4.5 % 0.0-6.6 Eos # 0.45 K/uL 0.0-0.5 HCG, Quant 3200.0 mIU/mL 90 Hematocrit 41.0 % 36.0-46.1 Hemoglobin 14.0 gm/dL 11.6-15.8 Lymph # 2.01 K/uL 0.8-3.4 Lymph % 20.3 % 17.0-46.1 Mean Cell Volume 90.9 fl 80.9-99.0 Mean Corpuscular HGB 31.0 pg 25.9-32.7 Mean Corpuscular HGB Conc 34.1 g/dL 30.8-34.3 Mean Platelet Volume 10.3 fL 8.9-12.4 [place] # 0.76 K/uL 0.3-0.9 [place] % 7.7 % 4.3-13.2 Neut# 6.67 K/uL 1.0-7.0 Neut% 67.2 % 40.4-72.8 Platelet Count 283 K/uL 155-360 Red Blood Count 4.51 M/uL 3.90-5.40 Red Cell Distri Width %CV 12.8 % 11.7-14.4 Red Cell Distri Width SD 41.3 fl 3-47 Urine Screen See Note 91 White Blood Count 9.9 K/uL 3.1-10.7 Type And Screen 06/13/2013 Antibody Screen Negative Negative Patient Blood Type A Pos Genital Culture W/ Gram Stain 06/13/2013 Genital Culture See Note 92 Gram Stain See Note 93 Chlamydia/GC Amplification 06/13/2013 Chlamydia Trachomatis, Negative Negative Mary Neisseria Gonorrhoeae, Mary Negative Negative Please note: See Note 94 Laboratory test finding 06/13/2013 Antibody Detection See Note 95 Bas% 0.2 % 0.0-1.1 Baso # 0.04 K/uL 0.0-0.1 Eo% 2.8 % 0.0-6.6 Eos # 0.47 K/uL 0.0-0.5 Hematocrit 42.6 % 36.0-46.1 Hemoglobin 14.5 gm/dL 11.6-15.8 Hepatitis B Surface Antigen Nonreactive Nonreactive 96 Lead,Blood (Adult) 1 g/dL 0-19 97 Lymph # 2.84 K/uL 0.8-3.4 Lymph % 16.6 % Low 17.0-46.1 Mean Cell Volume 90.1 fl 80.9-99.0 Mean Corpuscular HGB 30.7 pg 25.9-32.7 Mean Corpuscular HGB Conc 34.0 g/dL 30.8-34.3 Mean Platelet Volume 10.6 fL 8.9-12.4 [place] # 1.10 K/uL High 0.3-0.9 [place] % 6.4 % 4.3-13.2 Neut# 12.61 K/uL High 1.0-7.0 Neut% 74.0 % High 40.4-72.8 Platelet Count 352 K/uL 155-360 Rapid Plasma Reagin Nonreactive Nonreactive 98 Red Blood Count 4.73 M/uL 3.90-5.40 Red Cell Distri Width %CV 12.7 % 11.7-14.4 Red Cell Distri Width SD 41.0 fl 3-47 Rubella IgG Antibody Reactive Reactive Urine Culture See Note 99 Varicella-Zoster Virus IgG Ab 1.90 Immune>1.09in 100 White Blood Count 17.1 K/uL High 3.1-10.7 Laboratory test finding 06/13/2013 ThinPrep Pap: Cervix/Endocx See Note 101 Laboratory test finding 06/07/2013 Culture If Indicated Comment See Note 102 Urine Culture See Note 103 Urine HCG (Qualitative) Positive High Negative Urine Screen See Note 104 Urinalysis With Microscopic 06/07/2013 Urine Bacteria Very Few None Seen Urine Bilirubin - Dipstick Negative Negative Urine Blood Moderate High Negative Urine Clarity Clear Clear Urine Color Yellow Yellow Urine Epithelial Cells Few None Seen /lpf Urine Glucose - Dipstick Negative mg/dL Negative Urine Ketone Negative mg/dL Negative Urine Leuk Esterase Moderate High Negative Urine Nitrite - Dipstick Negative Negative Urine PH 6.0 Low 6.5-7.5 Urine Protein - Dipstick Negative mg/dL Negative Urine RBC 0-2 rbc/hpf 0-7 Urine Specific [place] <=1.005 Low 1.010-1.030 Urine Urobilinogen - Dipstick 0.2 E.U./dL 0.2-1.0 Urine WBC 20-30 wbc/hpf High 0-7 1 BACK PAIN, CRAMPS, 7 WEEKS 2 Method: [employer] QuickVue One-Step Immunoassay 3 Approximate Gestational Age and Total BHCG Range: 0.2 - 1 Week........................5-50 mIU/mL 1 - 2 Weeks.....................50-500 mIU/mL 2 - 3 Weeks..................100-5,000 mIU/mL 3 - 4 Weeks.................500-10,000 mIU/mL 4 - 5 Weeks...............1,000-50,000 mIU/mL 5 - 6 Weeks.............10,000-100,000 mIU/mL 6 - 8 Weeks.............15,000-200,000 mIU/mL 2 - 3 Months............10,000-100,000 mIU/mL 4 VACUOLATED POLYS AND BANDS PRESENT 5 URINE, CLEAN CATCH 6 A negative result for either C. trachomatis and/or N. gonorrhoeae does not preclued an infection because results are dependent on adequate specimen collection, absence of inhibitors, and sufficient DNA to be detected. 7 Unable to add tests SPECIMEN IS HEMOLYZED CALLED CATY Fink NP IN ER TO INFORM TEST(S) COULD NOT BE ADDED AT 2321 02/15/18 by LAB.TOW Tests: BMP Instructions: 8 Note: Persistent reduction for 3 months or more in an eGFR <60 mL/min/1.73 m2 defines CKD. Patients with eGFR values >/=60 mL/min/1.73 m2 may also have CKD if evidence of persistent proteinuria is present. The original MDRD equation for estimated GFR is not valid for patients less than 18 years of age. Additional information may be found at www.kdoqi.org. 9 Z32.01 N96 O09.91 10 Approximate Gestational Age and Total BHCG Range: 0.2 - 1 Week........................5-50 mIU/mL 1 - 2 Weeks.....................50-500 mIU/mL 2 - 3 Weeks..................100-5,000 mIU/mL 3 - 4 Weeks.................500-10,000 mIU/mL 4 - 5 Weeks...............1,000-50,000 mIU/mL 5 - 6 Weeks.............10,000-100,000 mIU/mL 6 - 8 Weeks.............15,000-200,000 mIU/mL 2 - 3 Months............10,000-100,000 mIU/mL 11 N91.2 12 Approximate Gestational Age and Total BHCG Range: 0.2 - 1 Week........................5-50 mIU/mL 1 - 2 Weeks.....................50-500 mIU/mL 2 - 3 Weeks..................100-5,000 mIU/mL 3 - 4 Weeks.................500-10,000 mIU/mL 4 - 5 Weeks...............1,000-50,000 mIU/mL 5 - 6 Weeks.............10,000-100,000 mIU/mL 6 - 8 Weeks.............15,000-200,000 mIU/mL 2 - 3 Months............10,000-100,000 mIU/mL 13 E11.65 14 Elevated levels of HbA1c suggest the need for more aggressive treatment of glycemia. The [place] [employer] recommends that a primary goal of therapy should be a HbA1c of <7% and that physicians should re-evaluate the treatment regimen in patients with HbA1c values consistently >8%. 15 L60.9 16 Final report Result 1 Hyphae observed 17 Fungus (Mycology) Culture Final report Result 1 Penicillium species Result 2 Scopulariopsis species Performed at: RN - [facility] [address] [id number] Camera Repairer: Shelby York MD, Phone: [phone] 18 E11.65 19 Elevated levels of HbA1c suggest the need for more aggressive treatment of glycemia. The [place] [employer] recommends that a primary goal of therapy should be a HbA1c of <7% and that physicians should re-evaluate the treatment regimen in patients with HbA1c values consistently >8%. 20 N76.0 21 Method: BD Affirm VPIII DNA Probe Assay 22 E11.65 23 Note: Persistent reduction for 3 months or more in an eGFR <60 mL/min/1.73 m2 defines CKD. Patients with eGFR values >/=60 mL/min/1.73 m2 may also have CKD if evidence of persistent proteinuria is present. The original MDRD equation for estimated GFR is not valid for patients less than 18 years of age. Additional information may be found at www.kdoqi.org. 24 Values below the stated reference ranges of AST and ALT can be seen in normal populations. Clinical correlation is suggested. 25 Elevated levels of HbA1c suggest the need for more aggressive treatment of glycemia. The [place] [employer] recommends that a primary goal of therapy should be a HbA1c of <7% and that physicians should re-evaluate the treatment regimen in patients with HbA1c values consistently >8%. 26 Reference Guidelines*: Desirable: ........... < 200 mg/dL Borderline High: ..... 200-239 mg/dL High: ................ >=240 mg/dL * The National Cholesterol Education Program (NCEP) 27 Reference Guidelines*: Normal: ............. < 150 mg/dL Borderline High: .... 150-199 mg/dL High: ............... 200-499 mg/dL Very High: .......... > 500 mg/dL * Source: National Cholesterol Education Program (NCEP) 28 Reference Guidelines*: Low HDL: ..... < 40 mg/dL Normal: ..... 40-60 mg/dL Desirable: ... > 60 mg/dL *The National Cholesterol Education Program(NCEP) 29 Reference Guidelines*: Optimal:........... <100 mg/dL Near Optimal....... 100-129 mg/dL Borderline High.... 130-159 mg/dL High............... 160-189 mg/dL Very High.......... >=190 mg/dL * Source: National Cholesterol Education Program (NCEP) 30 ABOUT 6WKS PREG SEVERE BACK PAIN 31 Approximate Gestational Age and Total BHCG Range: 0.2 - 1 Week........................5-50 mIU/mL 1 - 2 Weeks.....................50-500 mIU/mL 2 - 3 Weeks..................100-5,000 mIU/mL 3 - 4 Weeks.................500-10,000 mIU/mL 4 - 5 Weeks...............1,000-50,000 mIU/mL 5 - 6 Weeks.............10,000-100,000 mIU/mL 6 - 8 Weeks.............15,000-200,000 mIU/mL 2 - 3 Months............10,000-100,000 mIU/mL 32 Instrument flagged sample for slide review. Less than 10% Bands seen, no other immature WBC's seen. RBC morphology essentially normal. Platelet estimate=NORMAL 33 Elevated levels of HbA1c suggest the need for more aggressive treatment of glycemia. The [place] [employer] recommends that a primary goal of therapy should be a HbA1c of <7% and that physicians should re-evaluate the treatment regimen in patients with HbA1c values consistently >8%. 34 Note: Persistent reduction for 3 months or more in an eGFR <60 mL/min/1.73 m2 defines CKD. Patients with eGFR values >/=60 mL/min/1.73 m2 may also have CKD if evidence of persistent proteinuria is present. The original MDRD equation for estimated GFR is not valid for patients less than 18 years of age. Additional information may be found at www.kdoqi.org. 35 Values below the stated reference ranges of AST and ALT can be seen in normal populations. Clinical correlation is suggested. 36 GRAM STAIN ! FEW GRAM POSITIVE COCCI ! RARE GRAM POS BACILLI SUGGESTIVE OF CORYNEBACTERIA ! FEW WHITE BLOOD CELLS ! RARE EPITHELIAL CELLS 37 Organism 1 ! METHICILLIN RESISTANT S.AUREUS Quantity ! MANY METHICILLIN RESISTANT S.AUREUS Target Route Dose M.I.C. RX AB COST ------ ----- -------- ------ -- ------ OXACILLIN >=4 R * TETRACYCLINE <=1 S TRIMETHOPRIM/SULFAMETHOXAZOLE BLOOD PO DS <=10 S 0.39 AMOXICILLIN R AMOXICILLIN/CLAVULANATE R AMPICILLIN/SULBACTAM R ERYTHROMYCIN >=8 R CLINDAMYCIN BLOOD <=0.25 S This Staphylococcal species does not demonstrate inducible clindamycin resistance in vitro. MOXIFLOXACIN 2 S CEFACLOR R AZITHROMYCIN R PIPERACILLIN R VANCOMYCIN <=0.5 S 38 Interpretation: ATYPICAL SQUAMOUS CELLS OF UNDETERMINED SIGNIFICANCE (ASC-US). SHIFT IN ML SUGGESTIVE OF BACTERIAL VAGINOSIS. Specimen Adequacy: SATISFACTORY FOR EVALUATION. Additional Findings: ENDOCERVICAL/TRANSFORMATION ZONE PRESENT. Cytology [facility] [address] [place] [id number] CYTOLOGY REPORT Name: Shari Mann : 1990 (Age: 25) Sex: F Location: [facility]. # [id number] Date Collected: 10/07/2015 Billing #: [id number] Date Received: 10/07/2015 Requisition # [id number] Physician(s): KHADAR OROZCO Source of Specimen: ENDOCERVICAL/ECTOCERVICAL THIN PREP Clinical Information: Date of Last Menstrual Period: 10/09/15 Dysplasia/Cancer History: LSIL Electronic Signature Daroin San MD Reported: 10/08/2015 Also seen by: EDUARDO Oh (ASCP) [facility] [employer] HPV High Risk Date Ordered: 10/08/2015 Status: Signed Out Date Reported: 10/10/2015 High Risk NEGATIVE (HPV Types 16, 18, 31, 33, 35, 39, 45, 51, 52, 56, 58, 59, 66, 68) APTIMA Electronic Signature Sussy Hurt [place] [facility] [employer] Dx Code(s): Z01.419 A; R87.610 N76.0 39 Elevated levels of HbA1c suggest the need for more aggressive treatment of glycemia. The [place] [employer] recommends that a primary goal of therapy should be a HbA1c of <7% and that physicians should re-evaluate the treatment regimen in patients with HbA1c values consistently >8%. 40 Note: Persistent reduction for 3 months or more in an eGFR <60 mL/min/1.73 m2 defines CKD. Patients with eGFR values >/=60 mL/min/1.73 m2 may also have CKD if evidence of persistent proteinuria is present. The original MDRD equation for estimated GFR is not valid for patients less than 18 years of age. Additional information may be found at www.kdoqi.org. 41 Values below the stated reference ranges of AST and ALT can be seen in normal populations. Clinical correlation is suggested. 42 Acceptable specimens for this test are male urethral swab, endocervical swab and liquid based pap specimens, vaginal swabs in APTIMA transports and first void urine. See online Directory of Services for test number for rectal and pharyngeal specimens. Performed at: RN - [facility] [address] [id number] Camera Repairer: Shelby York MD, Phone: [phone] 43 DUPLICATE 44 FIRST MORNING SPECIMENS GENERALLY CONTAIN THE HIGHEST CONCENTRATION OF HCG AND ARE RECOMMENDED FOR EARLY DETECTION OF . 45 Wind Site Manager: [id number] KATIE HI 46 PATIENT COULD NOT VOID 47 Elevated levels of HbA1c suggest the need for more aggressive treatment of glycemia. The [place] [employer] recommends that a primary goal of therapy should be a HbA1c of <7% and that physicians should re-evaluate the treatment regimen in patients with HbA1c values consistently >8%. 48 Elevated levels of HbA1c suggest the need for more aggressive treatment of glycemia. The [place] Diabetes Association recommends that a primary goal of therapy should be a HbA1c of <7% and that physicians should re-evaluate the treatment regimen in patients with HbA1c values consistently >8%. 49 Organism 1 ! BETA HEMOLYTIC STREP NON A Quantity ! FEW 50 Result confirmed by repeat analysis. 51 Note: Persistent reduction for 3 months or more in an eGFR <60 mL/min/1.73 m2 defines CKD. Patients with eGFR values >/=60 mL/min/1.73 m2 may also have CKD if evidence of persistent proteinuria is present. The original MDRD equation for estimated GFR is not valid for patients less than 18 years of age. Additional information may be found at www.kdoqi.org. 52 CALLED ANA Lees WITH GLU AT 1705 03/15/15 by LAB.MPK 53 Elevated levels of HbA1c suggest the need for more aggressive treatment of glycemia. The [place] Diabetes Association recommends that a primary goal of therapy should be a HbA1c of <7% and that physicians should re-evaluate the treatment regimen in patients with HbA1c values consistently >8%. 54 03/15/15 LAB.DWM Deleted by [facility] 55 has appt 02/12/15 to discuss 56 Note: Persistent reduction for 3 months or more in an eGFR <60 mL/min/1.73 m2 defines CKD. Patients with eGFR values >/=60 mL/min/1.73 m2 may also have CKD if evidence of persistent proteinuria is present. The original MDRD equation for estimated GFR is not valid for patients less than 18 years of age. Additional information may be found at www.kdoqi.org. 57 Values below the stated reference ranges of AST and ALT can be seen in normal populations. Clinical correlation is suggested. 58 Elevated levels of HbA1c suggest the need for more aggressive treatment of glycemia. The [place] [employer] recommends that a primary goal of therapy should be a HbA1c of <7% and that physicians should re-evaluate the treatment regimen in patients with HbA1c values consistently >8%. 59 Reference Guidelines*: Desirable: ........... < 200 mg/dL Borderline High: ..... 200-239 mg/dL High: ................ >=240 mg/dL * The National Cholesterol Education Program (NCEP) 60 Reference Guidelines*: Low HDL: ..... < 40 mg/dL Normal: ..... 40-60 mg/dL Desirable: ... > 60 mg/dL *The National Cholesterol Education Program(NCEP) 61 Reference Guidelines*: Optimal:........... <100 mg/dL Near Optimal....... 100-129 mg/dL Borderline High.... 130-159 mg/dL High............... 160-189 mg/dL Very High.......... >=190 mg/dL * Source: National Cholesterol Education Program (NCEP) 62 Reference Guidelines*: Normal: ............. < 150 mg/dL Borderline High: .... 150-199 mg/dL High: ............... 200-499 mg/dL Very High: .......... > 500 mg/dL * Source: National Cholesterol Education Program (NCEP) 63 This high-risk HPV test detects thirteen high-risk types (16/18/31/33/35/39/45/51/52/56/58/59/68) without differentiation. Performed at: RN - [facility] [address] [id number] Camera Repairer: Shelby York MD, Phone: [phone] 64 OPERATION/PROCEDURE Biopsy of cervix DIAGNOSIS: "CERVICAL BIOPSY": MINUTE FRAGMENT OF SUPERFICIAL SQUAMOUS EPITHELIUM, INSUFFICIENT FOR EVALUATION OF SQUAMOUS EPITHELIAL ABNORMALITY, SEE COMMENT. CERVICAL STROMA WITH CHRONIC INFLAMMATION. HW/clf INTERPRETATION COMMENT The previous Pap smear ([id number]) is concurrently reviewed. The diagnosis of low-grade squamous intraepithelial lesion (LGSIL) in Pap smear is sustained. The present biopsy is mostly composed of endocervical glandular stroma tissue, with only a minute fragment of superficial squamous epithelium seen, insufficient for evaluation of squamous epithelial abnormality. GROSS "CERVICAL BIOPSY". The specimen is received in an appropriately labeled container. This contains one rounded zavala colored piece of soft tissue measuring up to 0.4 x 0.4 x 0.1 cm.; filtered and submitted in toto within a single cassette. /clf MICROSCOPIC Sections show cervical stroma with endocervical glandular component with squamous metaplasia, and chronic inflammation. A minute fragment of superficial squamous epithelium is seen, insufficient for evaluation of squamous epithelial abnormality. PRE OPERATIVE DIAGNOSIS Atypical Paps LGSIL REVIEW CODE CODE: I ---- Signed Electronically signed CHRIS BRYAN MD 07/27/14 1826 ---- 63 CYTOLOGY SCREENER - BIOLOGICAL AIDE @ 12/11 Screened by: Lucy iJmenez SCT(ASCP) PAP: FINAL REPORT SPECIMEN ADEQUACY: SPECIMEN SATISFACTORY FOR INTERPRETATION ADEQUATE ENDOCERVICAL/TRANSFORMATION ZONE NOTED INTERPRETATION: LOW-GRADE SQUAMOUS INTRAEPITHELIAL LESION COMMENT: COLPOSCOPY WITH CERVICAL \\E&E\\ ENDOCERVICAL BIOPSIES SUGGESTED THINPREP PREPARED PAP SLIDE # Prepared in the Cytology laboratory from the ThinPrep sample is 1 ThinPrep smear. PAP ACCESSI QUESTIONNAIRE 11/09 PERTINENT CLINICAL HISTORY FOR PAP (BIOLOGICAL AIDE) CYTOLOGY (Check all that apply): ? N Post ? N Menopause? LMP date: Y Last Pap: at [facility]? Y Abnormal Pap? If Yes, date: 06/13/13 If patient had related surgical procedure: What Procedure? LGSIL Related Therapy: IUD: Oral Contraception: Depo: Y Nova Ring: Hormone Replacement: Ore Fielder Patient Number: [id number] Significant Clinical History: 795.09 ==== DISCLAIMER: The Pap smear is a screening test and not a diagnostic procedure. False negative and false positive results can and do occur for a number of reasons. Regular screening provides an aid in detecting treatable cervical abnormalities, but should not be used as the only means for detecting cervical dysplasia and carcinoma. ---- Signed Electronically signed CHAMP SHER MD 07/25/14 2676 ---- 66 [facility] [address] [place] [address], [address] Phone PREETHI Lennon [address] AFFIRM VAGINOSIS / VAGINITIS REPORT Name: Johnathan, Shari : 1990 (Age: 24) Sex: F Location : [facility] Rec. # [id number] Date Collected: 07/05/2014 Billing # : [id number] Date Received: 07/05/2014 Requisition # [id number] Physician(s): KHADAR OROZCO Source of Specimen: Vaginal Results: Tammie species DNA Probe NEGATIVE Gardnerella vaginalis DNA Probe NEGATIVE Trichomonas vaginalis DNA Probe NEGATIVE Reported: 07/08/[address] Josefina Ramirez [facility] ICD-9 Codes: 112.1 67 COLONY COUNT ! >100,000 CFU/ml Organism 1 ! MIXED URETHRAL ML SPECIMEN IS A MIX OF GRAM POSITIVE ORGANISMS CONSISTENT WITH SKIN/VAGINAL ML. UNABLE TO DETERMINE WHICH ORGANISMS ARE FROM THE URINARY TRACT OR ARE THE RESULT OF CONTAMINATION DURING COLLECTION. SUGGEST PREPEAT SPECIMEN IF CLINICALLY INDIATED. 68 A1c value between 5.7% and 6.4% is considered at increased risk for diabetes. A1c value greater than 6.5 % is considered essentially diagnostic for Type II diabetes. Current guidelines recommend a treatment goal of <7% for diabetic patients. This method will measure glycosylated hemoglobin variants, HbS, HbG , HbH, HbWayne, HbC, HbE, etc. Other hemoglobin- opathies may give incorrect results with this test. 69 COLONY COUNT ! >100,000 CFU/ml Organism 1 ! MIXED URETHRAL ML 70 Approximate Gestational Age and Total BHCG Range: 0.2 - 1 Week........................5-50 mIU/mL 1 - 2 Weeks.....................50- 500 mIU/mL 2 - 3 Weeks..................100-5,000 mIU/mL 3 - 4 Weeks.................500-10,000 mIU/mL 4 - 5 Weeks...............1,000-50, 000 mIU/mL 5 - 6 Weeks.............10,000-100,000 mIU/mL 6 - 8 Weeks.............15,000-200,000 mIU/mL 2 - 3 Months............10,000-100, 000 mIU/mL 71 Approximate Gestational Age and Total BHCG Range: 0.2 - 1 Week........................5-50 mIU/mL 1 - 2 Weeks.....................50- 500 mIU/mL 2 - 3 Weeks..................100-5,000 mIU/mL 3 - 4 Weeks.................500-10,000 mIU/mL 4 - 5 Weeks...............1,000-50, 000 mIU/mL 5 - 6 Weeks.............10,000-100,000 mIU/mL 6 - 8 Weeks.............15,000-200,000 mIU/mL 2 - 3 Months............10,000-100, 000 mIU/mL 72 Note: Persistent reduction for 3 months or more in an eGFR <60 mL/min/1.73 m2 defines CKD. Patients with eGFR values >/=60 mL/min/1.73 m2 may also have CKD if evidence of persistent proteinuria is present. The original MDRD equation for estimated GFR is not valid for patients less than 18 years of age. Additional information may be found at www.kdoqi.org. 73 05/08/14 LAB.CKS Deleted by [facility] 74 NOT INDICATED,TYPE ON FILE 75 CULTURE TO FOLLOW 76 Approximate Gestational Age and Total BHCG Range: 0.2 - 1 Week........................5-50 mIU/mL 1 - 2 Weeks.....................50- 500 mIU/mL 2 - 3 Weeks..................100-5,000 mIU/mL 3 - 4 Weeks.................500-10,000 mIU/mL 4 - 5 Weeks...............1,000-50, 000 mIU/mL 5 - 6 Weeks.............10,000-100,000 mIU/mL 6 - 8 Weeks.............15,000-200,000 mIU/mL 2 - 3 Months............10,000-100, 000 mIU/mL 77 COLONY COUNT ! >100,000 CFU/ml Organism 1 ! ESCHERICHIA COLI QUANTITY ! MANY Organism 2 ! MIXED URETHRAL ML ESCHERICHIA COLI Target Route Dose M.I.C. RX AB COST ------ ----- -------- ------ -- ------ NITROFURANTOIN 64 I TRIMETHOPRIM/SULFAMETHOXAZOLE <=20 S AMPICILLIN 8 S CEFAZOLIN <=4 S AMPICILLIN/SULBACTAM 4 S CIPROFLOXACIN <=0.25 S PIPERACILLIN/TAZOBACTAM <=4 S CEFTAZIDIME <=1 S CEFTRIAXONE <=1 S CEFEPIME <=1 S LEVOFLOXACIN <=0.12 S IMIPENEM <=0.25 S GENTAMICIN <=1 S TOBRAMYCIN <=1 S 78 01/01/14 LAB.ZANE NOT INDICATED 79 01/01/14 LAB.DWM Deleted by [facility] 80 [facility] [address] [place] [address], [address] [place] [address] GC / CHLAMYDIA REPORT Name: Shari Ocasio : 1990 (Age: 23) Sex: F Location: [facility] Med. Rec. # [id number] Date Collected: 11/16/2013 Billing #: [id number] Date Received: 11/16/2013 Physician(s): KHADAR OROZCO Source of Specimen: Endocervical swab Results: Neisseria gonorrhoeae NEGATIVE Chlamydia trachomatis NEGATIVE Comment: This analysis was performed using second generation nucleic acid amplification testing (NAAT). Reported: 11/19/2013 Electronic Signature eduardo Caliale Ramirez [facility] [employer] [facility] ICD-9 Codes: 616.10 81 [facility] [address] [place] [address], [address] [place] [address] AFFIRM VAGINOSIS / VAGINITIS REPORT Name: Shari Ocasio : 1990 (Age: 23) Sex: F Location : [facility] Rec. # [id number] Date Collected: 11/16/2013 Billing #: [id number] Date Received: 11/16/2013 Physician(s): KHADAR OROZCO Source of Specimen: Vaginal Results: Tammie species DNA Probe NEGATIVE Gardnerella vaginalis DNA Probe POSITIVE Trichomonas vaginalis DNA Probe NEGATIVE Reported: 11/19/2013 Electronic Signature eduardo Caliice Ashley [facility] [employer] [facility] ICD-9 Codes: 616.10 82 Therapeutic target for the treatment of diabetes Mellitus patients is <7% HBA1C, and in selective patients <6.0%.Please refer to [place] Diabetes Association Diabetic care guidelines for further information. 83 Test Performed by: [place] [address] Diver'S Tender: Brennan Murillo III, M.D. 84 Test Performed by: [place] [address] Diver'S Tender: Brennan Murillo III, M.D. 85 Because ethnic data is not always readily available, this report includes an eGFR for both -Americans and non- Americans. The National Kidney Disease Education Program (NKDEP) does not endorse the use of the MDRD equation for patients that are not between the ages of 18 and 70, are , have extremes of body size, muscle mass, or nutritional status, or are non- or non-. According to the National Kidney Foundation, irrespective of diagnosis, the stage of the disease is based on the level of kidney function: Stage Description GFR(mL/min/1.73 m(2)) 1 Kidney damage with normal or decreased GFR 90 2 Kidney damage with mild decrease in GFR 60- 89 3 Moderate decrease in GFR 30-59 4 Severe decrease in GFR 15-29 5 Kidney failure <15 (or dialysis) 86 HDL Interpretation: Undesirable: High Risk: Less than 40 mg/dL Desirable: Low Risk: Greater than 60 mg/dL 87 Unable to calculate LDL as triglyceride is > 400 88 Result confirmed by repeat analysis. Approximate Gestational Age and Total BHCG Range: 0.2 - 1 Week........................5-50 mIU/mL 1 - 2 Weeks.....................50-500 mIU/mL 2 - 3 Weeks..................100-5, 000 mIU/mL 3 - 4 Weeks.................500-10,000 mIU/mL 4 - 5 Weeks...............1,000-50,000 mIU/mL 5 - 6 Weeks.............10,000-100, 000 mIU/mL 6 - 8 Weeks.............15,000-200,000 mIU/mL 2 - 3 Months............10,000-100,000 mIU/mL 89 DIAGNOSIS: "PRODUCTS OF CONCEPTION": TISSUE CONSISTENT WITH FIRST TRIMESTER INTRAUTERINE . Xochitl GROSS Received in a single container appropriately labeled, "PRODUCTS OF CONCEPTION ". This contains a grayish piece of grossly recognizable placenta and gestational sac together measuring 12.5 x 3.5 x 3.0 cm. The gestational sac represents approximately half of the tissue and measures 5.5 x 3.7 x 3.0 cm. in overall dimensions. This has a grayish external appearance. Within the sac is a grossly recognizable fetus measuring 1.4 cm. in length, still attached by an umbilical cord, but with indistinct genitalia. This is not submitted for tissue analysis. The remaining placenta is spongiform, and unremarkable. Curriculum Designer sections are submitted within a single cassette. Ws/clf MICROSCOPIC Sections reveal edematous chorionic villi and decidual tissue. PRE OPERATIVE DIAGNOSIS Vaginal bleeding, low abdominal pain REVIEW CODE CODE: I ---- CHAMP Monterroso MD 06/28/13 1540 ---- 90 Approximate Gestational Age and Total BHCG Range: 0.2 - 1 Week........................5-50 mIU/mL 1 - 2 Weeks.....................50- 500 mIU/mL 2 - 3 Weeks..................100-5,000 mIU/mL 3 - 4 Weeks.................500-10,000 mIU/mL 4 - 5 Weeks...............1,000-50, 000 mIU/mL 5 - 6 Weeks.............10,000-100,000 mIU/mL 6 - 8 Weeks.............15,000-200,000 mIU/mL 2 - 3 Months............10,000-100, 000 mIU/mL 91 06/25/13 LAB.ZANE Deleted by [facility] 92 GENITAL ML 93 GRAM STAIN ! GRAM STAIN INDICATES NORMAL GENITAL ML ! FEW GR POS. BACILLI SUGGESTIVE OF LACTOBACILLUS SP. 94 Acceptable specimens for this test are male urethral swab, endocervical swab and liquid based pap specimens, vaginal swabs in APTIMA transports and first void urine. See online Directory of Services for test number for rectal and pharyngeal specimens. Performed at: [address] [id number] Camera Repairer: Shelby York MD, Phone: [phone] 95 No reportable results 96 HBsAg not detected; does not exclude the possibility of exposure to or early acute infections with HBV. 97 The Centers for Disease Control and Prevention states blood lead levels less than 10 ug/dL in children have been associated with numerous adverse health effects. [facility] Guidelines: Blood lead levels in the range 5-9 ug/dL have been associated with adverse health effects in children aged 6 years and younger. Environmental Exposure: WHO Recommendation <20 Occupational Exposure: OSHA Lead Std 40 Detection Limit=1 98 PENDING; TEST PERFORMED ON MONDAYS AND THURSDAYS 99 COLONY COUNT ! 80,000-100,000 CFU/ml Organism 1 ! MIXED URETHRAL ML 100 Nonimmune <0.91 Equivocal 0.91 - 1.09 Immune >1.09 Performed at: [address] [id number] Camera Repairer: Shelby York MD, Phone: [phone] PAP: FINAL REPORT SPECIMEN ADEQUACY: SPECIMEN SATISFACTORY FOR INTERPRETATION INTERPRETATION: LOW-GRADE SQUAMOUS INTRAEPITHELIAL LESION COMMENT: THINPREP PREPARED PAP SLIDE # Prepared in the Cytology laboratory from the ThinPrep sample is 1 ThinPrep smear. PAP ACCESSI QUESTIONNAIRE 11/09 PERTINENT CLINICAL HISTORY FOR PAP (BIOLOGICAL AIDE) CYTOLOGY (Check all that apply): ? Y Post ? Menopause? LMP date: 03/31/13 If patient had related surgical procedure: Related Therapy: Significant Clinical History: ==== DISCLAIMER: The Pap smear is a screening test and not a diagnostic procedure. False negative and false positive results can and do occur for a number of reasons. Regular screening provides an aid in detecting treatable cervical abnormalities, but should not be used as the only means for detecting cervical dysplasia and carcinoma. ---- CHAMP Monterroso MD 06/14/13 1428 ---- 102 CULTURE TO FOLLOW 103 COLONY COUNT ! >100,000 CFU/ml Organism 1 ! ESCHERICHIA COLI QUANTITY ! MANY Organism 2 ! MIXED URETHRAL ML ESCHERICHIA COLI Target Route Dose M.I.C. RX AB COST ------ ----- -------- ------ -- ------ NITROFURANTOIN 32 S TRIMETHOPRIM/SULFAMETHOXAZOLE <=20 S AMPICILLIN <=2 S CEFAZOLIN <=4 S AMPICILLIN/SULBACTAM <=2 S CIPROFLOXACIN <=0.25 S PIPERACILLIN/TAZOBACTAM <= 4 S CEFTAZIDIME <=1 S CEFTRIAXONE <=1 S CEFEPIME <=1 S LEVOFLOXACIN <=0.12 S IMIPENEM <=0.25 S GENTAMICIN <=1 S TOBRAMYCIN <=1 S 104 06/07/13 LAB.MPK Deleted by [facility] Procedures Date CPT Code Description Status 09/15/2017 Diabetic Foot Exam Completed 08/02/2017 85823 Theraputic Or Diagnostic Injection Completed 08/01/2014 15519 Cryocautery Of Cervix Completed 07/24/2014 05241 Colposcopy With Biopsy Completed 06/13/2013 41083 Antepartum 7 Or More Total Office Visit Completed Encounters Type Date Location Provider CPT E/M Dx Office Visit 04/25/2018 2:45p Family Medicine Khadar Arnold, MANUFACTURING PROCESS ENGINEER 02660 E11.9 Z33.1 F17.210 Office Visit 01/23/2018 2:30p Family Medicine Khadar Arnold MANUFACTURING PROCESS ENGINEER 58649 Z32.01 E11.65 Office Visit 01/20/2018 2:00p Family Medicine Khadar Arnold MANUFACTURING PROCESS ENGINEER 53880 E11.65 L60.9 Office Visit 09/15/2017 1:15p Family Medicine Khadar Arnold [facility] 30219 E11.65 L60.9 Office Visit 08/12/2017 2:00p Family Medicine Khadar Arnold, [facility] 14037 N76.0 Z30.011 E11.65 Office Visit 08/04/2017 10:15a Family Medicine Annemarie Avila M.D. 78223 Z00.00 E11.65 F17.210 Z23 Office Visit 05/06/2017 1:30p Family Medicine Khadar Arnold MANUFACTURING PROCESS ENGINEER 81418 N63 E11.65 F17.210 Z71.6 Z23 B37.2 Office Visit 08/19/2016 3:00p Family Medicine Khadar Arnold MANUFACTURING PROCESS ENGINEER 32613 Z32.01 E11.65 F17.210 Office Visit 11/25/2015 2:45p Family Medicine Khadar Arnold MANUFACTURING PROCESS ENGINEER 25423 E11.65 G56.02 G56.01 Office Visit 10/22/2015 10:45a Family Medicine Annemarie Avila M.D. 72381 B37.2 L02.818 Office Visit 10/15/2015 9:00a Family Lizzie Avila M.D. 78762 L02.818 B37.2 Office Visit 10/07/2015 1:00p Family Medicine ERNESTO Lloyd 79645 Z01.419 R21 E11.65 Office Visit 09/16/2015 1:00p [facility] Medicine ERNESTO Lloyd 56311 E11.65 Office Visit 09/09/2015 2:15p [facility] CrystalsubhaERNESTO Anthony 54247 E11.65 R21 F17.210 Office Visit 06/04/2015 11:00a [facility] ERNESTO Lloyd 50900 250.02 308.3 782.1 Office Visit 04/15/2015 1:45p [facility] ERNESTO Lloyd 14247 250.02 782.1 V15.81 Office Visit 04/02/2015 1:30p [place] [address] 462 305.1 Office Visit 02/05/2015 2:00p [facility] ERNESTO Lloyd 53354 250.02 388.70 616.10 Plan of Care Future Appointment(s):11/08/2018 1:00 pm - ERNESTO Lloyd at [facility]04/25/2018 - YVONNE LloydPE11.9 Type 2 diabetes mellitus without complicationsComments:Control looks AWESOME!!! keep up the frequent testing, continue to watch what foods you eat, eating healthy and small portion sizesMedications updatedFollow up:October, post gebbtpK10.1 state, incidentalComments:Continue with TkgcxtD62.210 Nicotine dependence, cigarettes, uncomplicatedComments:Continue to cut back and work on smoking cessation.
[2018-05-20 20:56] VITALS: BP 123/67
--- NOTE | 2018-05-20 21:56 | UC ---
Eye Complaint HPI - HPI Summary HPI Summary: 28yo woman with cc of sore swollen, tender, , left upper eyelid for one day.Patient is at 21 weeks - History of Current Complaint Chief Complaint: UCEye Stated Complaint: LEFT EYE IRRITATION Time Seen by Provider: 05/20/18 21:38 Hx Obtained From: Patient Hx Last Menstrual Period: 07/03/15 ?: Yes - 21 weeks Onset/Duration: Sudden Onset Timing: Constant Severity Initially: Moderate Severity Currently: Moderate Pain Intensity: 6 Pain Scale Used: 0-10 Numeric Location of Injury: Eye Lid (upper) - No injury, but thereswelling and redness and pain to lid Character: Dull Aggravating Factor(s): Blinking, Other - touching Alleviating Factor(s): Nothing Associated Signs And Symptoms: Positive: Negative - Risk Factors Penetrating Injury Risk Factor: Negative Globe Rupture Risk Factors: Negative Acute Glaucoma Risk Factors: Negative Optic Artery Occlusion Risk Factors: Negative - Allergies/Home Medications Allergies/Adverse Reactions: Allergies Allergy/AdvReac Type Severity Reaction Status Date / Time amoxicillin Allergy Hives Verified 05/01/18 11:31 cephalexin [From Keflex] Allergy Hives Verified 05/01/18 11:32 PMH/Surg Hx/FS Hx/Imm Hx Previously Healthy: No - PCOS Endocrine History: Diabetes, Other - PECOS Other Endocrine History: PECOS - Surgical History Surgical History: Yes Surgery Procedure, Year, and Place: appy - Family History Known Family History: Positive: Diabetes - Social History 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 Lives: With Family Alcohol Use: None Substance Use Type: None Smoking Status (MU): Heavy Every Day Tobacco Smoker Type: Cigarettes Amount Used/How Often: 1/2 pack daily Household Exposure Type: Cigarettes Review of Systems Constitutional: Negative - sore and swolllen left eyelid Skin: Other - redness an swelling to left upper lid Eyes: Other - as above ENT: Negative Respiratory: Negative Cardiovascular: Negative Gastrointestinal: Negative Genitourinary: Negative Motor: Negative Neurovascular: Negative Musculoskeletal: Negative Neurological: Negative Psychological: Negative Is Patient Immunocompromised?: No All Other Systems Reviewed And Are Negative: Yes Physical Exam - Summary Physical Exam Summary: 28 yo obese woman in NAD, but with swollen, red, lefty upper lid. Triage Information Reviewed: Yes Appearance: Well-Appearing Vital Signs: Initial Vital Signs Temp 98.1 F 05/20/18 20:49 Pulse 99 05/20/18 20:49 Resp 22 05/20/18 20:49 BP 123/67 05/20/18 20:49 Pulse Ox 98 05/20/18 20:49 Vital Signs Reviewed: Yes Eyes: Positive: Conjunctiva Clear, Other: - swelling and mild tenderness and erythema of left , upper lid.. Negative: Discharge ENT Exam: Normal Dental Exam: Normal Neck exam: Normal Neck: Positive: Supple, Nontender, No Lymphadenopathy Respiratory Exam: Normal Respiratory: Positive: Lungs clear, No respiratory distress Cardiovascular Exam: Normal Cardiovascular: Positive: RRR, No Murmur Abdominal Exam: Normal Abdomen Description: Positive: Nontender - Uterine fundus palpated at umbilicus. , Soft Bowel Sounds: Positive: Present Pelvic Exam: Positive: Other - Not examined. Musculoskeletal Exam: Normal Neurological Exam: Normal Psychological Exam: Normal Skin Exam: Other - See eye exam. Eye Complaint Course/Dx - Differential Dx/Diagnosis Provider Diagnoses: hordeolum Discharge - Sign-Out/Discharge Documenting (check all that apply): Patient Departure - Discharge Plan Condition: Stable Disposition: HOME Prescriptions: Erythromycin OPHTH.OINT* [Ilotycin OPHTH.OINT*] 1 applic LEFT EYE BID #1 ophth.oint Patient Education Materials: Harjit (ED) Print Language: TURKISH Forms: *Work Release Referrals: Patricia Arnold NP [Primary Care Provider] - Additional Instructions: Apply warm compresses to affected eyelid about 5-10 times a day. You may use a tea bag dunked in very warm water. - Billing Disposition and Condition Condition: STABLE Disposition: Home
== END 2018-05-20 22:03 | disposition home or self-care (01) ==
LOC: UCCORT 20:41
DX: H00.014 Hordeolum externum left upper eyelid (principal); O24.312 Unspecified pre-existing diabetes mellitus in pregnancy, second trimester; E11.9 Type 2 diabetes mellitus without complications; O99.332 Smoking (tobacco) complicating pregnancy, second trimester; F17.210 Nicotine dependence, cigarettes, uncomplicated; Z3A.21 21 weeks gestation of pregnancy
CPT/HCPCS: 99212; G0463

== ENCOUNTER 2019-01-21 14:40 | Emergency (ER) | payer OTHER ==
--- OUTSIDE RECORDS SUMMARY | 2019-01-21 14:47 | XMS REPORT | Continuity of Care Document ---
:1990 External Reference #:[id number] Author Name Khadar Arnold FNP Address [address] [place] [address] Care Team Providers Name Role Phone Khadar Arnold NP Care Team Information Rn Interventional Unavailable Khadar Arnold DEVELOPMENT COORDINATOR Primary Care Physician Unavailable Payers Date Identification Numbers Payment Provider Subscriber Effective: 2016 Policy Number: [id number] [place] Medicaid Shari Mann PayID: [id number] [facility] [address] [place] [address] Advance Directives Description No Information Available Problems Date Description Provider Status Onset: 12/17/2013 Tobacco user Khadar Arnold FNP Active Onset: 12/17/2013 Type II diabetes mellitus Khadar Arnold FNP Active uncontrolled Onset: 06/19/2018 Viremia Jessica Ocasio MD Active Onset: 06/19/2018 Acute cystitis Jessica Ocasio MD Active Onset: 06/16/2013 Jenifer Pierson MD Inactive Inactive: 02/24/2015 Onset: 04/02/2015 Acute pharyngitis Jessica Ocasio MD Resolved Resolved: 10/15/2015 Onset: 07/22/2015 Bacterial vaginosis Resolved Resolved: 10/15/2015 Family History Date Family Member(s) Observation Comments Onset: (age 50 Years) Father Stroke Father Hypertension Mother Anxiety Paternal Grandfather Diabetes Paternal Grandfather CHF with pacer Paternal Grandfather Cancer Paternal Grandmother due to Stomach Cancer () Maternal Grandfather Unknown Maternal Grandmother Diabetes Social History Type Date Description Comments Sex Unknown Diet Diabetic 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[employer] [place] ETOH Use Rarely consumes alcohol Tobacco Use Start: Unknown Light tobacco smoker (10 or fewer cigarettes/day) Smoking Status Reviewed: 06/19/18 Light tobacco smoker (10 or fewer cigarettes/day) Allergies, Adverse Reactions, Alerts Date Description Reaction Status Severity Comments 04/02/2015 Amoxicillin rash Active 10/22/2015 Keflex Urticaria Active 02/23/2015 NKDA Inactive Medications Medication Date Status Form Strength Qnty SIG Indications Ordering Provider Glyburide 01/09 Active Tablets 5mg 30tab 1 by mouth E11.65 s every day Jenniferl eigh, RATE SETTER Nexplanon 01/09 Active Implant 68mg lot [id number] Z30.017 right arm Jenniferl eigh, RATE SETTER True Metrix Go 02/17 Active Kit w/Device 1unit use as directed [place], Blood Glucose s for blood sugar Jenniferl Meter monitoring eigh, RATE SETTER True Metrix 02/17 Active Strips 150un use as directed [place] Blood its up to 5 times Jenniferl Glucosetest daily for blood eigh, RATE SETTER Strips sugar testing Lancets Ultra 02/17 Active Misc Thin 30G 150un use up to five Clune, Thin 30G its times daily and Jenniferl as needed for eigh, RATE SETTER blood sugar testing Basaglar 04/13 Active Solution 100Unit/M 9ml inject 25 units [place] Pen-Injec L subcutaneously Jenniferl t every evening - eigh, RATE SETTER *changed dose due to low morning sugars Wrist Brace 11/25 Active Misc 1unit use as directed G56.02 s Jenniferl eigh, RATE SETTER Wrist Brace 11/25 Active Misc 1unit use as directed G56.01 s Jenniferl eigh, RATE SETTER [facility] 09/10 Active Misc 30G X 8 100un use with Clayton mm its insulin device Jenniferl as directed eigh, RATE SETTER Metformin HCL 00/00 Active Tablets 1000mg 1 by mouth Unknown ER (Mod) /0000 ER 24HR every day Erythromycin 06/19 Hx Tablets 500mg 14tab 1 by mouth 2 N30.00 AmarjitRosaura s times a day MD Jessica - 01/09 Plus 01/23 Hx Tablets 27-1mg 100ta 1 by mouth Z32.01 , bs every day *or Jenniferl - generic eigh, RATE SETTER 01/09 Terbinafine 10/25 Hx Tablets 250mg 30tab one by mouth B35.1 Cl, HCL s every day for 3 Jenniferl - month s eigh, RATE SETTER 01/23 Flagyl 08/16 Hx Tablets 500mg 14tab one by mouth Cl, s twice a day x 7 Jenniferl - days eigh, RATE SETTER 08/23 Fluconazole 08/12 Hx Tablets 150mg 1tabs one by mouth N76.0 Cl after Jenniferl - completing eigh, [facility] 08/24 antibiotics Sprintec 28 08/12 Hx Tablets 0.25-35mg 84tab 1 by mouth Z30.011 , -mcg s every day Jenniferl - eigh, [facility] 01/20 Nystatin-Triam 05/06 Hx Ointment 704778-7. 120gm apply to B37.2 [place] cinolone 1Unit/GM- [facility] % under breasts, eigh, RATE SETTER 01/20 axilla and abdomen twice a day. Doxycycline 05/06 Hx Tablets 100mg 20tab 1 tabl by mouth N63 Cl, Hyclate s twice a day Jenniferl - eigh, RATE SETTER 05/16 Levemir 04/10 Hx Solution 100Unit/M 4unit [facility] Flextouch Pen-Injec L s evening - may Jenniferl - t increase dose eigh, RATE SETTER04/13 by 2 units /2016 every 2-3 days until fasting sugars are below 120. Plus 08/19 Hx Tablets 27-1mg 100ta 1 by mouth Z32.01 , bs every day *or Jenniferl - generic eigh, RATE SETTER 05/06 equivalent Onetouch Ultra 08/19 Hx Strips 50uni use once daily E11.65 [place] Blue ts and as needed Jenniferl - for testing eigh, [facility] 02/17 blood sugars dx: e11.65 Simvastatin 11/25 Hx Tablets 40mg 30tab 1 by mouth E11.65 , s every day Jenniferl - eigh, RATE SETTER 08/19 Lisinopril 11/25 Hx Tablets 5mg 30tab 1 by mouth E11.65 , s every day Jenniferl - eigh, RATE SETTER 08/19 Nystatin 10/22 Hx Powder [id number] 45gm apply powder to B37.2 t/GM affected area Annemarie, - twice a day M.D. 08/19 Cephalexin 10/15 Hx Capsules 500mg 30cap 1 cap ( or tab) s by mouth three Annemarie, - times a day M.D. 10/22 Bactrim DS 10/15 Hx Tablets 800-160mg 14tab 1 tab by mouth L02.818 s every 12 hours Annemarie - M.D. 10/23 Lantus 09/10 Hx Solution 100Unit/M QS 30 units each Pen-Injec L - february Jenniferl - t increase dose eigh, RATE SETTER 04/10 by 2 units every 2-3 days until fasting sugars are below 120. Fluconazole 09/09 Hx Tablets 150mg 4tabs one by mouth R21 after Jenniferl - completing eigh, RATE SETTER 10/09 antibiotics Lisinopril 09/09 Hx Tablets 5mg 30tab 1 by mouth E11.65 , s every day Jenniferl - eigh, RATE SETTER 10/07 Metronidazole 07/22 Hx Tablets 500mg 14tab 2 Times A Day s - 07/30 Glyburide 07/02 Hx Tablets 2.5mg 30tab 1 by mouth s every day *in Jenniferl - addition to 5 eigh, RATE SETTER 09/10 mg* Trazodone HCL 06/04 Hx Tablets 50mg 30tab 1 by mouth one 308.3 s hour prior to Jenniferl - bed at night, eigh, RATE SETTER 10/07 if no better may try two Diflucan 06/04 Hx Tablets 150mg 7tabs take 1 by mouth 782.1 [place] once a day for Jenniferl - 7 days eigh, [facility] 06/11 Glyburide 04/25 Hx Tablets 5mg 30tab 1 by mouth s every day Jenniferl - eigh, [facility] 04/25 Nystatin-Triam 04/15 Hx Ointment 780018-7. 60gm apply to R21 [facility], cinolone 1Unit/GM- affected areas Jenniferl - % under breasts eigh, [facility] 09/09 and abdomen /2014 twice a day. Azithromycin 04/02 Hx Tablets 500mg 5tabs 1 po qd 462 Amarjit, MD Jessica - 04/15 Metformin HCL 03/12 Hx Tablets 1000mg 60tab 1 by mouth [place] s twice a day Jenniferl - eigh, [facility] 04/02 Glimepiride 03/12 Hx Tablets 2mg 30tab one tab PO in s am Jenniferl - eigh, [facility] 04/15 Fluconazole 02/06 Hx Tablets 150mg 2tabs take one tablet by mouth now Tanja - and repeat in 1 , Nystatin 02/06 Hx Cream [id number] 1unit apply to the t/GM s affected area Tanja - twice daily for , 04/15 Antipyrine-Erick 02/05 Hx Solution 5.5-1.4% 1unit 2-3 drops in [place] okine s the left ear Tanja - 3-4 times a day , 04/15 Plus 02/05 Hx Tablets 27-1mg 100ta 1 by mouth Chen bs every day Tanja Fernandez MD 04/15 Citalopram 09/12 Hx Tablets 20mg 30tab 1 po qd Jolanta Pierson s Jenifer Fernandez MD 04/15 Januvia 06/19 Hx Tablets 100mg 30tab 1 by mouth Dangelo s every day Jenifer Fernandez MD 04/02 Glyburide Hx Tablets 2.5mg 30tab take 1 tablet Clune, /0000 s by mouth every [facility] Jim arellano, [facility] 04/25 Metformin HCL Hx Tablets 500mg 30tab 1 a day Clune, ER /0000 ER 24HR s Aime arellano [facility] 04/25 Medications Administered in Office Medication Date Status Form Strength Qnty SIG Indications Ordering Provider [facility] Administered Injection Clune, 7 Ammy [facility] PPD Administered Injection Family Nurse 7 Immunizations CPT Code Status Date Vaccine Lot # [id number] Given 08/04/2017 Influenza Virus Vaccine Quadrivalent Iiv4 [place] [id number] [id number] Given 05/06/2017 Tdap injection [id number] Vital Signs Date Vital Result Comment 06/19/2018 1:33pm BP Systolic 102 mmHg BP Diastolic 60 mmHg Body Temperature 98.3 F Heart Rate 102 /min Respiratory Rate 18 /min Height 60 inches 5'0" Weight 206.00 lb BMI (Body Mass Index) 40.2 kg/m2 BSA (Body Surface Area) 1.89 m2 White body weight in kilograms 45 kg O2 % BldC Oximetry 97 % 04/25/2018 2:38pm BP Systolic Sitting Left Arm 116 mmHg BP Diastolic Sitting Left Arm 72 mmHg Heart Rate 80 /min Respiratory Rate 18 /min Height 60 inches 5'0" Weight 219.00 lb BMI (Body Mass Index) 42.8 kg/m2 BSA (Body Surface Area) 1.94 m2 White body weight in kilograms 45 kg 01/23/2018 2:24pm BP Systolic Sitting Left Arm 116 mmHg BP Diastolic Sitting Left Arm 76 mmHg Heart Rate 78 /min Respiratory Rate 18 /min Height 60 inches 5'0" Weight 245.00 lb BMI (Body Mass Index) 47.8 kg/m2 BSA (Body Surface Area) 2.03 m2 White body weight in kilograms 45 kg 01/20/2018 1:43pm BP Systolic Sitting Left Arm 118 mmHg BP Diastolic Sitting Left Arm 72 mmHg Heart Rate 78 /min Respiratory Rate 18 /min Height 60 inches 5'0" Weight 247.00 lb BMI (Body Mass Index) 48.2 kg/m2 BSA (Body Surface Area) 2.04 m2 White body weight in kilograms 45 kg 09/15/2017 1:20pm BP Systolic Sitting Left Arm 152 mmHg BP Diastolic Sitting Left Arm 94 mmHg Heart Rate 88 /min Respiratory Rate 18 /min Height 60 inches 5'0" Weight 239.00 lb BMI (Body Mass Index) 46.7 kg/m2 BSA (Body Surface Area) 2.01 m2 White body weight in kilograms 45 kg Last Menstrual Period [id number] 08/12/2017 2:21pm BP Systolic Sitting Left Arm 128 mmHg BP Diastolic Sitting Left Arm 76 mmHg Heart Rate 72 /min Respiratory Rate 18 /min Height 60 inches 5'0" Weight 239.00 lb BMI (Body Mass Index) 46.7 kg/m2 BSA (Body Surface Area) 2.01 m2 White body weight in kilograms 45 kg Last Menstrual Period [id number] 08/04/2017 10:24am BP Systolic 124 mmHg BP Diastolic 82 mmHg Body Temperature 97.1 F Heart Rate 108 /min Height 60 inches 5'0" Weight 239.00 lb BMI (Body Mass Index) 46.7 kg/m2 BSA (Body Surface Area) 2.01 m2 White body weight in kilograms 45 kg Last Menstrual Period [id number] O2 % BldC Oximetry 95 % 05/06/2017 1:34pm BP Systolic Sitting Left Arm 118 mmHg BP Diastolic Sitting Left Arm 72 mmHg Heart Rate 80 /min Respiratory Rate 18 /min Height 60 inches 5'0" Weight 240.00 lb BMI (Body Mass Index) 46.9 kg/m2 BSA (Body Surface Area) 2.02 m2 White body weight in kilograms 45 kg Last Menstrual Period [id number] 08/19/2016 3:02pm BP Systolic Sitting Left Arm 116 mmHg BP Diastolic Sitting Left Arm 70 mmHg Heart Rate 88 /min Respiratory Rate 18 /min Height 60 inches 5'0" Weight 239.12 lb BMI (Body Mass Index) 46.7 kg/m2 BSA (Body Surface Area) 2.01 m2 White body weight in kilograms 45 kg Last Menstrual Period [id number] 11/25/2015 2:49pm BP Systolic 130 mmHg BP Diastolic 78 mmHg Body Temperature 97.6 F Heart Rate 88 /min Weight 240.50 lb 10/22/2015 10:53am BP Systolic 120 mmHg BP Diastolic 72 mmHg Body Temperature 97.9 F Height 60 inches 5'0" Weight 239.00 lb BMI (Body Mass Index) 46.7 kg/m2 BSA (Body Surface Area) 2.01 m2 10/15/2015 8:59am BP Systolic 118 mmHg BP Diastolic 72 mmHg Body Temperature 98.3 F Height 60 inches 5'0" Weight 236.38 lb BMI (Body Mass Index) 46.2 kg/m2 BSA (Body Surface Area) 2.00 m2 Last Menstrual Period [id number] 10/07/2015 1:12pm BP Systolic 132 mmHg BP Diastolic 82 mmHg Height 60 inches 5'0" Weight 239.00 lb BMI (Body Mass Index) 46.7 kg/m2 BSA (Body Surface Area) 2.01 m2 Last Menstrual Period [id number] 09/09/2015 2:07pm BP Systolic 120 mmHg BP Diastolic 78 mmHg Heart Rate 86 /min Respiratory Rate 20 /min Weight 234.50 lb 06/04/2015 11:12am BP Systolic Sitting Left Arm 116 mmHg BP Diastolic Sitting Left Arm 74 mmHg Height 60 inches 5'0" Weight 233.00 lb BMI (Body Mass Index) 45.5 kg/m2 BSA (Body Surface Area) 1.99 m2 04/15/2015 1:53pm BP Systolic Sitting Left Arm 128 mmHg BP Diastolic Sitting Left Arm 78 mmHg Body Temperature 98.0 F Height 60 inches 5'0" Weight 236.00 lb BMI (Body Mass Index) 46.1 kg/m2 BSA (Body Surface Area) 2.00 m2 04/02/2015 1:24pm BP Systolic Sitting Left Arm 132 mmHg BP Diastolic Sitting Left Arm 74 mmHg Body Temperature 100.1 F Height 60 inches 5'0" Weight 236.00 lb BMI (Body Mass Index) 46.1 kg/m2 BSA (Body Surface Area) 2.00 m2 02/05/2015 2:22pm BP Systolic 136 mmHg BP Diastolic 84 mmHg Weight 241.00 lb 11/04/2014 2:41pm BP Systolic 128 mmHg BP Diastolic 74 mmHg Body Temperature 97.9 F Weight 244.00 lb 07/24/2014 10:11am BP Systolic 118 mmHg BP Diastolic 72 mmHg Body Temperature 97.2 F Height 60 inches 5'0" Weight 252.00 lb 07/05/2014 9:58am BP Systolic 120 mmHg BP Diastolic 76 mmHg Body Temperature 98.0 F Weight 253.00 lb 06/19/2014 11:02am BP Systolic 132 mmHg BP Diastolic 80 mmHg Height 60 inches 5'0" Weight 252.00 lb 06/05/2014 9:41am Height 60 inches 5'0" Weight 256.00 lb 05/15/2014 1:33pm BP Systolic 124 mmHg BP Diastolic 74 mmHg Height 60 inches 5'0" Weight 256.00 lb 04/15/2014 9:38am BP Systolic 130 mmHg BP Diastolic 80 mmHg Height 60 inches 5'0" Weight 254.00 lb 01/02/2014 10:46am BP Systolic 112 mmHg BP Diastolic 70 mmHg Height 60 inches 5'0" Weight 259.00 lb 12/24/2013 7:01pm BP Systolic 120 mmHg BP Diastolic 74 mmHg Height 60 inches 5'0" Weight 259.00 lb 12/17/2013 10:06am BP Systolic 108 mmHg BP Diastolic 64 mmHg Height 60 inches 5'0" Weight 258.00 lb 11/27/2013 2:56pm BP Systolic 124 mmHg BP Diastolic 76 mmHg Height 60 inches 5'0" Weight 254.00 lb 11/16/2013 2:29pm BP Systolic 140 mmHg 130/90 repeat left BP Diastolic 100 mmHg 130/90 repeat left Heart Rate 76 /min Weight 256.00 lb Results Test Date Facility Test Result H/L Range Note Glycohemoglobin A1c [address] Glycohemoglobin 9.1 % High 4.2-6.3 1, [address] (A1c) [place] [address] [phone] eAG 214 mg/dL Microalbumin,Random 01/09/[address] Microalbumin,Urine 34.1 < 20.[address] mg/[place] [address] [phone] CBC W/Automated Diff 01/09/[address] White Blood Count 8.5 N 3.1-[address] K/uL .7 [place] [address] [phone] Red Blood Count 4.83 M/uL N 3.90-5.40 Hemoglobin 14.3 gm/dL N 11.6-15.8 Hematocrit 42.9 % N 36.0-46.1 Mean Cell Volume 88.8 fl N 80.9-99.0 Mean Corpuscular HGB 29.6 pg N 25.9-32.7 Mean Corpuscular HGB Conc 33.3 g/dL N 30.8-34.3 Platelet Count 338 K/uL N 155-360 Red Cell Distri Width SD 42.0 fl N 36-47 Red Cell Distri Width %CV 13.2 % N 11.7-14.4 Mean Platelet Volume 11.0 fL N 8.9-12.4 Neut% 53.3 % N 40.4-72.8 Lymph % 32.3 % N 20.0-42.0 [place] % 9.6 % N 4.3-13.2 Eo% 4.4 % N 0.0-6.6 Bas% 0.4 % N 0.0-1.1 Neut# 4.55 K/uL N 1.8-7.0 Lymph # 2.76 K/uL N 1.0-4.0 [place] # 0.82 K/uL N 0.3-0.9 Eos # 0.38 K/uL N 0.0-0.5 Baso # 0.03 K/uL N 0.0-0.1 Comprehensive Metabolic 01/09/[address] [facility] [address] Glucose 223 mg/dL High 74-106 Panel [address] [place], [place] [id number] [phone] BUN 13 mg/dL N 7-18 Creatinine 0.7 mg/dL 0.6-1.3 Glom Filtration Rate, Estimate >60 mL/min >60 If >60 mL/min >60 3 BUN/Creat 18.5 ratio Sodium 136 mmol/L N 136-145 Potassium 4.2 mmol/L N 3.5-5.1 Chloride 105 mmol/L N 98-107 Carbon Dioxide 23 mmol/L N 21-32 Anion Gap 8 mEq/L N 8-16 Calcium 8.5 mg/dL N 8.5-10.1 Total Protein 7.6 g/dL N 6.4-8.2 Albumin 3.5 g/dL N 3.4-5.0 Globulin 4.1 g/dL N 1.9-4.3 Alb/Glob 0.9 ratio Bilirubin,Total 0.2 mg/dL N 0.2-1.0 Sgot/Ast 11 U/L Low 15-37 4 SGPT/Alt 21 U/L N 12-78 Alkaline Phosphatase 89 U/L N 45-117 Urine HCG 01/09/2019 [facility] Misc Negative (Qualitative) Urine Culture 06/19/2018 [facility] Urine Culture URETHRAL ML [address] [place] [address] [phone] Quantity > 100,000 CFU/mL 6 Urine Dipstick 06/19/2018 [facility] Inhouse Ua Color yellow Yellow Ua Clarity clear Clear Ua Leuko +500 High Negative Ua Nitrite neg Negative Ua Urobilinogen 0.2 0.2 - 1.0 E.U./dL Ua Protein trace Negative Ua PH 6.5 6.5-7.5 Ua Blood trace Negative Ua Specific [place] 1.030 1.010-1.030 Ua Ketones +160 High Negative Ua Bilirubin trace Negative Ua Glucose neg Negative Ua RFX Micro & Culture 05/23/2018 [facility] Urine Color YELLOW Yellow 7 II [address] [place] [address] [phone] Urine Clarity CLEAR Clear Urine Glucose - Dipstick NEGATIVE mg/dL Negative Urine Bilirubin - Dipstick SMALL Abnormal Negative Urine Ketone >=80 mg/dL High Negative Urine Specific [place] >=1.030 N 1.010-1.030 Urine Blood NEGATIVE Negative Urine PH 6.0 Low 6.5-7.5 Urine Protein - Dipstick TRACE mg/dL Negative Urine Urobilinogen - Dipstick 0.2 E.U./dL N 0.2-1.0 Urine Nitrite - Dipstick NEGATIVE Negative Urine Leuk Esterase NEGATIVE Negative Source: URINE, CLEAN CAT <SEE NOTE> 8 Urine Dipstick 04/25/2018 [facility] Inhouse Ua Color <pending> Yellow Ua Clarity <pending> Clear Ua Leuko <pending> Negative Ua Nitrite <pending> Negative Ua Urobilinogen <pending> 0.2 - 1.0 E.U./dL Ua Protein 1+ High Negative Ua PH <pending> 6.5-7.5 Ua Blood <pending> Negative Ua Specific [place] 1.030 1.010-1.030 Ua Ketones large Negative Ua Bilirubin <pending> Negative Ua Glucose <pending> Negative Chlamydia/GC 02/15/2018 [facility] Chlamydia Negative Negative 9 Mary, Urine [address] Trachomatis,[place] [address] -PCR [phone] Neisseria Gonorrhoeae,Ur -PCR Negative Negative 10 Ua RFX Micro & Culture 02/15/2018 [facility] Urine Color YELLOW Yellow II [address] [place] [address] [phone] Urine Clarity CLEAR Clear Urine Glucose - Dipstick NEGATIVE mg/dL Negative Urine Bilirubin - Dipstick NEGATIVE Negative Urine Ketone >=80 mg/dL High Negative Urine Specific [place] 1.010 N 1.010-1.030 Urine Blood NEGATIVE Negative Urine PH 6.0 Low 6.5-7.5 Urine Protein - Dipstick NEGATIVE mg/dL Negative Urine Urobilinogen - Dipstick 0.2 E.U./dL N 0.2-1.0 Urine Nitrite - Dipstick NEGATIVE Negative Urine Leuk Esterase TRACE Abnormal Negative Urine RBC 0-2 rbc/hpf 0-2 Urine WBC 0-2 wbc/hpf 0-7 Urine Epithelial Cells FEW /lpf None Seen Urine Bacteria FEW None Seen Source: URINE, CLEAN CAT <SEE NOTE> 11 Differential-WBC Confirm 02/15/2018 [facility] Total Cells 100 #CELLS [address] [place] [address] [phone] Band% 4 % N 0-8 Neutrophils% 76 % High 33-73 Lymph% 12 % Low 20-42 Atypical Lymph% 1 % N 0-7 Monocyte% 6 % N 0-10 Eosinophil% 1 % N 0-5 Platelet Estimate NORMAL Poikilocytosis 0-1+ Anisocytosis 0-1+ Toxic Granulation 0-1+ 12 Slide Review 02/15/2018 [facility] Slide Review DIFF ORDERED [address] [place] [address] [phone] CBS 02/15/2018 [facility] White Blood 19.1 K/uL High 3.1-10. W/Automated [address] Count 7 [place] [address] [phone] Red Blood Count 5.15 M/uL N 3.90-5.40 Hemoglobin 15.9 gm/dL High 11.6-15.8 Hematocrit 45.5 % N 36.0-46.1 Mean Cell Volume 88.3 fl N 80.9-99.0 Mean Corpuscular HGB 30.9 pg N 25.9-32.7 Mean Corpuscular HGB Conc 34.9 g/dL High 30.8-34.3 Platelet Count 379 K/uL High 155-360 Red Cell Distri Width SD 45.3 fl N 3-47 Red Cell Distri Width %CV 14.2 % N 11.7-14.4 Mean Platelet Volume 10.6 fL N 8.9-12.4 Neut% 75.6 % High 40.4-72.8 Lymph % 16.3 % Low 20.0-42.0 [place] % 6.3 % N 4.3-13.2 Eo% 1.6 % N 0.0-6.6 Bas% 0.2 % N 0.0-1.1 Neut# 14.44 K/uL High 1.8-7.0 Lymph # 3.11 K/uL N 1.0-4.0 [place] # 1.21 K/uL High 0.3-0.9 Eos # 0.31 K/uL N 0.0-0.5 Baso # 0.03 K/uL N 0.0-0.1 Laboratory 02/15/2018 [facility] HCG,Serum POSITIVE Abnormal (Negative) 13 test finding [address] (Qualitative) [place] [address] [phone] HCG, Quant 10201.0 mIU/mL 14 Aot Request 02/15/2018 [facility] Aot Request Unable to add te <SEE [address] NOTE> [place] [address] [phone] Tests to be added: BMP Basic Metabolic Panel 02/15/2018 [facility] Glucose 65 mg/dL Low 74-[address] [place] [address] [phone] BUN 8 mg/dL N 7-18 Creatinine 0.4 mg/dL Low 0.6-1.3 Glom Filtration Rate, Estimate >60 mL/min >60 If >60 mL/min >60 16 BUN/Creat 20.0 ratio Sodium 138 mmol/L N 136-145 Potassium 3.8 mmol/L N 3.5-5.1 Chloride 111 mmol/L High 98-107 Carbon Dioxide 16 mmol/L Low 21-32 Anion Gap 11 mEq/L N 8-16 Calcium 8.9 mg/dL N 8.5-10.1 Laboratory test 02/01/2018 [facility] [address] HCG, Quant 4860.0 17, finding [address] mIU/mL 18 [place] [address] [phone] Laboratory test 01/25/[address] HCG, Quant 471.0 19, finding [address] mIU/mL 20 [place] [address] [phone] Glycohemoglobin 01/20/[address] Glycohemoglobin 9.5 % High 4. 21, A1c [address] (A1c) 2- 22 [place] [address] [phone]. [phone] 3 eAG 226 mg/dL Fungal Culture 09/28/[address] Fungal Fungus Stain 23, 24 With Smear [address] [place] [address] [phone] Fungal Culture; Other Sources Fungus (Mycology <SEE NOTE> 25 Glycohemoglobin 09/15/[address] Glycohemoglobin 10.8 % High 4.2-6.3 26, A1c [address] (A1c) 27 [place] [address] [phone] eAG 263 mg/dL Affirm 08/12/[address] Trichomonas Negative [Negative] [address] [place] [address] [phone] Gardnerella vaginalis POSITIVE High [Negative] Tammie species Negative [Negative] 29 Comprehensive 05/06/[address] Glucose 168 mg/dL High 74-106 30 Metabolic Panel [address] [place] [address] [phone] BUN 10 mg/dL N 7-18 Creatinine 0.7 mg/dL N 0.6-1.3 Glom Filtration Rate, Estimate >60 mL/min >60 If >60 mL/min >60 31 BUN/Creat 14.2 ratio Sodium 138 mmol/L N 136-145 Potassium 4.0 mmol/L N 3.5-5.1 Chloride 106 mmol/L N 98-107 Carbon Dioxide 24 mmol/L N 21-32 Anion Gap 8 mEq/L N 8-16 Calcium 9.0 mg/dL N 8.5-10.1 Total Protein 7.7 g/dL N 6.4-8.2 Albumin 3.5 g/dL N 3.4-5.0 Globulin 4.2 g/dL N 1.9-4.3 Alb/Glob 0.8 ratio Bilirubin,Total 0.3 mg/dL N 0.2-1.0 Sgot/Ast 10 U/L Low 15-37 32 SGPT/Alt 28 U/L N 12-78 Alkaline Phosphatase 111 U/L N 45-117 Glycohemoglobin 05/06/2017 [facility] [address] Glycohemoglobin 8.2 % High 4.2-6.3 [address] (A1c) [place] [address] [phone] eAG 189 mg/dL LDL Cholesterol 05/06/2017 [facility] [address] Cholesterol 207 mg/dL High < 200 [address] [place] [address] [phone] Triglycerides 206 mg/dL High <150 35 HDL Cholesterol 45 mg/dL >40 36 LDL-Cholesterol 121 mg/dL < 100 37 Microalbumin,Random 05/06/[address] [facility] [address] Microalbumin,Urine 28.3 < Urine 4077 [facility] mg/L 20.0 [place] [address] [phone] Laboratory test 08/11/2016 [facility] HCG, Quant 1221. N 38, finding [address] [place] [address] mIU/m [phone] L CBS W/Automated Diff 08/11/2016 [facility] White Blood Count 11.2 High 3.1-[address] K/uL 0.7 [place] [address] [phone] Red Blood Count 4.52 M/uL N 3.90-5.40 Hemoglobin 14.2 gm/dL N 11.6-15.8 Hematocrit 41.1 % N 36.0-46.1 Mean Cell Volume 90.9 fl N 80.9-99.0 Mean Corpuscular HGB 31.4 pg N 25.9-32.7 Mean Corpuscular HGB Conc 34.5 g/dL High 30.8-34.3 Platelet Count 298 K/uL N 155-360 Red Cell Distri Width SD 42.6 fl N 3-47 Red Cell Distri Width %CV 13.1 % N 11.7-14.4 Mean Platelet Volume 10.8 fL N 8.9-12.4 Neut% 68.4 % N 40.4-72.8 Lymph % 21.3 % N 17.0-46.1 [place] % 7.6 % N 4.3-13.2 Eo% 2.4 % N 0.0-6.6 Bas% 0.3 % N 0.0-1.1 Neut# 7.65 K/uL High 1.8-7.0 Lymph # 2.38 K/uL N 1.8-7.0 [place] # 0.85 K/uL N 0.3-0.9 Eos # 0.27 K/uL N 0.0-0.5 Baso # 0.03 K/uL N 0.0-0.1 Slide Review 08/11/2016 [facility] Slide Review (SEE N [address] NOTE) [place] [address] [phone] Glycohemoglobin A1c 11/25/2015 [facility] Glycohemoglobin 9.2 % High 4.[address] (A1c) -6. [place] [address] 3 [phone] eAG 217 mg/dL CMP Panel (14 Test) 11/25/2015 [facility] Glucose 157 mg/dL High 74-[address] [place] [address] [phone] BUN 11 mg/dL 7-18 Creatinine 0.7 mg/dL 0.6-1.3 Glom Filtration Rate, Estimate >60 mL/min >60 If >60 mL/min >60 42 BUN/Creat 15.7 ratio Sodium 138 mmol/L 136-145 Potassium 4.0 mmol/L 3.5-5.1 Chloride 107 mmol/L 98-107 Carbon Dioxide 26 mmol/L 21-32 Anion Gap 5 mEq/L Low 8-16 Calcium 8.4 mg/dL Low 8.5-10.1 Total Protein 7.1 g/dL 6.4-8.2 Albumin 3.3 g/dL Low 3.4-5.0 Globulin 3.8 g/dL 1.9-4.3 Alb/Glob 0.9 ratio Bilirubin,Total 0.3 mg/dL 0.2-1.0 Sgot/Ast 8 U/L Low 15-37 43 SGPT/Alt 18 U/L 12-78 Alkaline Phosphatase 85 U/L 45-117 Routine Culture W/ Gram 10/15/2015 [facility] Gram Stain See Note 44 Stain [address] [place] [address] [phone] Aerobic Culture See Note 45 Laboratory test 10/07/2015 [facility] (DO Not Use) Conventional Pap HR- Abnormal 46 finding Glycohemoglobin A1c 09/09/2015 [facility] Glycohemoglobin 9.8 % High 4.2- [address] (A1c) 6.3 [place] [address] [phone] eAG 235 mg/dL Comprehensive Metabolic 09/09/2015 [facility] Glucose 301 mg/dL High 74-106 Panel [address] [place] [address] [phone] BUN 13 mg/dL 7-18 Creatinine 1.0 mg/dL 0.6-1.3 Glom Filtration Rate, Estimate >60 mL/min >60 If >60 mL/min >60 48 BUN/Creat 13.0 ratio Sodium 136 mmol/L 136-145 Potassium 3.9 mmol/L 3.5-5.1 Chloride 104 mmol/L 98-107 Carbon Dioxide 24 mmol/L 21-32 Anion Gap 8 mEq/L 8-16 Calcium 9.4 mg/dL 8.5-10.1 Total Protein 7.4 g/dL 6.4-8.2 Albumin 3.6 g/dL 3.4-5.0 Globulin 3.8 g/dL 1.9-4.3 Alb/Glob 0.9 ratio Bilirubin,Total 0.4 mg/dL 0.2-1.0 Sgot/Ast 14 U/L Low 15-37 49 SGPT/Alt 23 U/L 12-78 Alkaline Phosphatase 109 U/L 45-117 Laboratory test finding 09/09/2015 N2N/CCD Import Estimated Average 235 Glucose (eAG) Hemoglobin A1c 9.8 High 4.2-6.3 Sodium Level 136 136-145 Chlamydia/GC Mary 07/22/2015 [facility] Chlamydia Negative Negative [address] Trachomatis, [place] [address] [phone] Neisseria Gonorrhoeae, Mary Negative Negative Please note: See Note 50 Laboratory test 07/22/2015 N2N/CCD Import Bedside Glucose 280 High 70- 110 finding Laboratory test 07/22/2015 [facility] Chlamydia/GC See Note [address] Mary, [place] [address] [phone] Urine HCG (Qualitative) NEGATIVE Negative 52 Urine Screen 07/22/2015 [facility] Urine Color STRAW Yellow [address] [place], [place] [id number] [phone] Urine Clarity SL CLOUDY Clear Urine Glucose - Dipstick >=1000 mg/dL High Negative Urine Bilirubin - Dipstick NEGATIVE Negative Urine Ketone NEGATIVE mg/dL Negative Urine Specific Atlantic 1.010 1.010-1.030 Urine Blood NEGATIVE Negative Urine PH 7.5 6.5-7.5 Urine Protein - Dipstick NEGATIVE mg/dL Negative Urine Urobilinogen - Dipstick 0.2 E.U./dL 0.2-1.0 Urine Nitrite - Dipstick NEGATIVE Negative Urine Leuk Esterase NEGATIVE Negative Laboratory test 07/22/2015 N2N/CCD Import Urine Bilirubin Negative Negative finding Urine Ketones Negative Negative Urine Leukocyte Esterase Negative Negative Urine Nitrite Negative Negative Urine Protein Negative Negative Urine Urobilinogen 0.2 0.2-1.0 Laboratory test 07/22/2015 [facility] Laboratory Point of Care 385 High 74-106 53 finding [phone] Glucose mg/dL Laboratory test 06/04/2015 [facility] Microalbumin,[place] See [address] [place] [place] [address] [phone] Glycohemoglobin 06/04/2015 [facility] Glycohemoglobin 8.5 % High 4.2-6.3 [address] (A1c) [place] [address] [phone] eAG 197 mg/dL Glycohemoglobin 04/15/2015 [facility] Glycohemoglobin 10.0 % High 4.2-6.3 [address] (A1c) [place], [place] [id number] [phone] eAG 240 mg/dL Laboratory test 04/02/2015 [facility] Throat Strep See Note [address] Screen [place], [place] [address] [phone] Basic Metabolic 03/15/2015 [facility] Glucose 436 mg/dL High 74-106 [address] [place], [place] [id number] [phone] BUN 10 mg/dL 7-18 Creatinine 0.9 mg/dL 0.6-1.3 Glom Filtration Rate, Estimate >60 mL/min >60 If >60 mL/min >60 59 BUN/Creat 11.1 ratio Sodium 138 mmol/L 136-145 Potassium 4.2 mmol/L 3.5-5.1 Chloride 104 mmol/L 98-107 Carbon Dioxide 23 mmol/L 21-32 Anion Gap 11 mEq/L 8-16 Calcium 8.4 mg/dL Low 8.5-10.1 Laboratory 03/15/2015 [facility] HCG,Serum(Qualitative) NEGATIVE (Negative) 60 test finding [address] [place] [address] [phone] Glycohemoglo 03/15/2015 [facility] Glycohemoglobin (A1c) 11.5 % H 4.2-6.3 61 [address] [place] [address] g [phone] h eAG 283 mg/dL CBS W/Automated 03/15/2015 [facility] White Blood 11.0 K/uL High 3.1-10.[address] [place] [address] [phone] Red Blood Count 5.09 M/uL 3.90-5.40 Hemoglobin [...] % 40.4-72.8 Lymph % 19.6 % 17.0-46.1 Whatcom % 7.7 % 4.3-13.2 Eo% 3.4 % 0.0-6.6 Bas% 0.5 % 0.0-1.1 Neut# 7.56 K/uL High 1.0-7.0 Lymph # 2.16 K/uL 1.8-7.0 Whatcom # 0.85 K/uL 0.3-0.9 Eos # 0.37 K/uL 0.0-0.5 Baso # 0.06 K/uL 0.0-0.1 Urinalysis With 03/15/2015 [facility] Urine Color YELLOW Yellow Microscopic [address] [place] [address] [phone] Urine Clarity CLEAR Clear Urine Glucose - Dipstick >=1000 mg/dL High Negative Urine Bilirubin - Dipstick NEGATIVE Negative Urine Ketone NEGATIVE mg/dL Negative Urine Specific Atlantic 1.010 1.010-1.030 Urine Blood MODERATE High Negative Urine PH 6.5 6.5-7.5 Urine Protein - Dipstick NEGATIVE mg/dL Negative Urine Urobilinogen - Dipstick 0.2 E.U./dL 0.2-1.0 Urine Nitrite - Dipstick NEGATIVE Negative Urine Leuk Esterase NEGATIVE Negative Urine RBC 0-2 rbc/hpf 0-2 Urine WBC 0-2 wbc/hpf 0-7 Urine Epithelial Cells FEW NONESEEN/lpf Urine Bacteria VERY FEW NONESEEN Laboratory test 03/15/2015 [facility] Urine Screen See Note 62 finding [address] [place] [address] [phone] Affirm 02/05/2015 N2N/CCD Import Tammie Positive High [Negat species amadou] Gardnerella vaginalis Negative [Negative] Trichomonas vaginalis Negative [Negative] Laboratory test 02/05/2015 N2N/CCD Import Microalbumin,Random 35.9 mg/L < 20.0 63 finding Urine CBC/Manual 02/05/2015 N2N/CCD Import Atypical Lymph% 3 % 0-7 Differential Band% 2 % 0-8 Eosinophil% 1 % 0-5 Hematocrit 45.6 % 36.0-46.1 Hemoglobin 15.5 gm/dL 11.6-15.8 Lymph% 18 % 17-56 Mean Cell Volume 89.1 fl 80.9-99.0 Mean Corpuscular HGB 30.3 pg 25.9-32.7 Mean Corpuscular HGB Conc 34.0 g/dL 30.8-34.3 Mean Platelet Volume 10.9 fL 8.9-12.4 Monocyte% 2 % 0-10 Neutrophils% 74 % High 33-73 Platelet Count 302 K/uL 155-360 Platelet Estimate Normal RBC Morphology Normal Red Blood Count 5.12 M/uL 3.90-5.40 Red Cell Distri Width %CV 13.1 % 11.7-14.4 Total Cells Counted 100 #CELLS White Blood Count 10.4 K/uL 3.1-10.7 Comprehensive Metabolic Panel 02/05/2015 N2N/CCD Import Alb/Glob 0.9 ratio Albumin 3.5 g/dL 3.4-5.0 Alkaline Phosphatase 101 U/L 45-117 Anion Gap 10 mEq/L 8-16 BUN 8 mg/dL 7-18 BUN/Creat 10.0 ratio Bilirubin,Total 0.3 mg/dL 0.2-1.0 Calcium 9.0 mg/dL 8.5-10.1 Carbon Dioxide 24 mmol/L 21-32 Chloride 105 mmol/L 98-107 Creatinine 0.8 mg/dL 0.6-1.3 Globulin 3.7 g/dL 1.9-4.3 Glom Filtration Rate, Estimate >60 mL/min >60 Glucose 254 mg/dL High 74-106 If >60 mL/min >60 64 Potassium 3.9 mmol/L 3.5-5.1 SGPT/Alt 16 U/L 12-78 Sgot/Ast 9 U/L Low 15-37 65 Sodium 139 mmol/L 136-145 Total Protein 7.2 g/dL 6.4-8.2 Glycohemoglobin A1c 02/05/2015 N2N/CCD Import Glycohemoglobin 11.7 % High 4.2-6.3 66 (A1c) eAG 289 mg/dL LDL Cholesterol Profile 02/05/2015 N2N/CCD Import Cholesterol 193 mg/dL < 200 67 HDL Cholesterol 32 mg/dL > 40 68 LDL-Cholesterol 116 mg/dL < 100 69 Triglycerides 226 mg/dL < 150 70 Laboratory test 07/24/2014 N2N/CCD Import HPV High Risk Negative Negative 71 finding Laboratory test 07/24/2014 N2N/CCD Import Cervical Biopsy See Note 72 finding Laboratory test 07/24/2014 N2N/CCD Import ThinPrep Pap: See Note 73 finding Cervix/Endocx Affirm 07/05/2014 N2N/CCD Import Tammie Negative 74 Gardnerella Negative Trichomonas Negative Laboratory test 07/05/2014 N2N/CCD Import Microalbumin,Random 18.4 mg/L 0.0-18.5 finding Urine Urine Culture See Note 75 Glycohemoglobin A1c 07/05/2014 N2N/CCD Import Glycohemoglobin 10.1 % High 4.8-6.0 76 (A1c) eAG 243 mg/dL Laboratory test 06/19/2014 N2N/CCD Import Urine Culture See Note 77 finding Laboratory test 05/13/2014 N2N/CCD Import HCG, Quant 33.0 mIU/mL 78 finding Laboratory test 05/08/2014 N2N/CCD Import Bas% 0.2 % 0.0-1.1 finding Baso # 0.03 K/uL 0.0-0.1 Eo% 1.1 % 0.0-6.6 Eos # 0.16 K/uL 0.0-0.5 HCG, Quant 952.0 mIU/mL 79 Hematocrit 41.0 % 36.0-46.1 Hemoglobin 14.6 gm/dL 11.6-15.8 Lymph # 2.30 K/uL 0.8-3.4 Lymph % 15.3 % Low 17.0-46.1 Mean Cell Volume 88.4 fl 80.9-99.0 Mean Corpuscular HGB 31.5 pg 25.9-32.7 Mean Corpuscular HGB Conc 35.6 g/dL High 30.8-34.3 Mean Platelet Volume 10.1 fL 8.9-12.4 Whatcom # 0.96 K/uL High 0.3-0.9 Whatcom % 6.4 % 4.3-13.2 Neut# 11.59 K/uL High 1.0-7.0 Neut% 77.0 % High 40.4-72.8 Platelet Count 329 K/uL 155-360 Red Blood Count 4.64 M/uL 3.90-5.40 Red Cell Distri Width %CV 13.5 % 11.7-14.4 Red Cell Distri Width SD 43.0 fl 3-47 White Blood Count 15.0 K/uL High 3.1-10.7 Comprehensive Metabolic Panel 05/08/2014 N2N/CCD Import Alb/Glob 0.8 ratio Albumin 3.5 g/dL 3.5-5.0 [...] mg/dL High 76-115 If >60 mL/min >60 80 Potassium 3.8 mmol/L 3.5-5.1 SGPT/Alt 24 U/L Low 30-65 Sgot/Ast 8 U/L Low 16-40 Sodium 138 mmol/L 136-145 Total Protein 7.7 g/dL 6.3-8.0 Laboratory test 05/08/2014 N2N/CCD Import Urine Screen See Note 81 finding Urinalysis With 05/08/2014 N2N/CCD Import Urine Amorph Very Few Negative Microscopic Sediment Urine Bacteria Very Few None Seen Urine [...] RBC >50 rbc/hpf High 0-7 Urine Specific Atlantic <=1.005 Low 1.010-1.030 Urine Urobilinogen - Dipstick 0.2 E.U./dL 0.2-1.0 Urine WBC 2-5 wbc/hpf 0-7 Laboratory test finding 01/01/2014 N2N/CCD Import Abo/RH Type See Note 82 Culture If Indicated Comment See Note 83 HCG, Quant 3111.0 mIU/mL 84 Urine Culture See Note 85 Urine HCG (Qualitative) See Note 86 Urine Screen See Note 87 Urinalysis With 01/01/2014 N2N/CCD Import Urine Bacteria Many None Seen High Microscopic Urine Bilirubin - Dipstick Negative Negative Urine [...] RBC 10-20 rbc/hpf High 0-7 Urine Specific Atlantic 1.025 1.010-1.030 Urine Urobilinogen - Dipstick 0.2 E.U./dL 0.2-1.0 Urine WBC 0-2 wbc/hpf 0-7 Lipid Profile 11/16/2013 N2N/CCD Import Cholesterol 270 mg/dL High Less than (Trig/Chol/HDL) 200 Cholesterol/HDL Ratio 5.7 Average High 1-4.44 HDL Cholesterol 47 mg/dL 40-60 88 LDL Cholesterol (See Note) Less Than 100 89 Triglycerides 492 mg/dL High 40-200 Comp Metabolic Panel 11/16/2013 N2N/CCD Import Albumin 3.5 g/dL Low 3.6- 5.4 Albumin/Globulin Ratio 1.3 1-3 Alkaline Phosphatase 83 U/L 30-110 Alt 18 U/L 14-54 Anion Gap 7.0 mmol/L 2-11 Ast 16 U/L 12-42 BUN/Creatinine Ratio 15.0 8-20 Blood Urea Nitrogen 9 mg/dL 6-24 Calcium 9.2 mg/dL 8.1-9.9 Chloride 102 mmol/L 101-111 Co2 Carbon Dioxide 24.0 mmol/L 22-32 Creatinine 0.60 mg/dL 0.50-1.40 Egfr 156.7 >60 90 Egfr Non- 121.8 >60 Globulin 2.8 g/dL 2-4 Glucose 359 mg/dL High 70-100 Potassium 4.0 mmol/L 3.5-5.0 Sodium 133 mmol/L 133-145 Total Bilirubin 0.3 mg/dL Low 0.4-1.5 Total Protein 6.3 g/dL 6.2-8.1 Laboratory test 11/16/2013 N2N/CCD Import Hemoglobin A1c 9.9 % High Less than 91 finding 6.0 Insulin Level 41.9 mcIU/mL 2.6 - 24.9 92 TSH (Thyroid Stimulating Horm) 1.55 miu/mL 0.34-5.60 Vitamin D 1,25-Dihydroxy 52 pg/mL 18-78 93 Affirm 11/16/2013 N2N/CCD Import Tammie Negative 94 Gardnerella Positive Trichomonas Negative GC / Chlamydia 11/16/2013 N2N/CCD Import Chlamydia Negative GC Negative 95 Laboratory test 06/26/2013 N2N/CCD Import Products Of See Note 96 finding Conception Laboratory test 06/26/2013 N2N/CCD Import Bas% 0.2 % 0.0-1.1 finding Baso # 0.03 K/uL 0.0-0.1 Eo% 2.6 % 0.0-6.6 Eos # 0.38 K/uL 0.0-0.5 HCG, Quant 1594.0 mIU/mL 97 Hematocrit 40.3 % 36.0-46.1 Hemoglobin 14.1 gm/dL 11.6-15.8 Lymph # 2.07 K/uL 0.8-3.4 Lymph % 14.1 % Low 17.0-46.1 Mean Cell Volume 89.8 fl 80.9-99.0 Mean Corpuscular HGB 31.4 pg 25.9-32.7 Mean Corpuscular HGB Conc 35.0 g/dL High 30.8-34.3 Mean Platelet Volume 10.4 fL 8.9-12.4 Whatcom # 0.96 K/uL High 0.3-0.9 [place] % 6.6 % 4.3-13.2 Neut# 11.21 K/uL High 1.0-7.0 Neut% 76.5 % High 40.4-72.8 Platelet Count 325 K/uL 155-360 Red Blood Count 4.49 M/uL 3.90-5.40 Red Cell Distri Width %CV 12.8 % 11.7-14.4 Red Cell Distri Width SD 41.4 fl 3-47 White Blood Count 14.7 K/uL High 3.1-10.7 Urinalysis With 06/25/2013 N2N/CCD Import Urine Bilirubin - Negative Negative Microscopic Dipstick [...] RBC 10-20 rbc/hpf High 0-7 Urine Specific Atlantic 1.010 1.010-1.030 Urine Urobilinogen - Dipstick 0.2 E.U./dL 0.2-1.0 Urine WBC 2-5 wbc/hpf 0-7 Laboratory test finding 06/25/2013 N2N/CCD Import Bas% 0.3 % 0.0-1.1 Baso # 0.03 K/uL 0.0-0.1 Eo% 4.5 % 0.0-6.6 Eos # 0.45 K/uL 0.0-0.5 HCG, Quant 3200.0 mIU/mL 98 Hematocrit 41.0 % 36.0-46.1 Hemoglobin 14.0 gm/dL 11.6-15.8 Lymph # 2.01 K/uL 0.8-3.4 Lymph % 20.3 % 17.0-46.1 Mean Cell Volume 90.9 fl 80.9-99.0 Mean Corpuscular HGB 31.0 pg 25.9-32.7 Mean Corpuscular HGB Conc 34.1 g/dL 30.8-34.3 Mean Platelet Volume 10.3 fL 8.9-12.4 Whatcom # 0.76 K/uL 0.3-0.9 Whatcom % 7.7 % 4.3-13.2 Neut# 6.67 K/uL 1.0-7.0 Neut% 67.2 % 40.4-72.8 Platelet Count 283 K/uL 155-360 Red Blood Count 4.51 M/uL 3.90-5.40 Red Cell Distri Width %CV 12.8 % 11.7-14.4 Red Cell Distri Width SD 41.3 fl 3-47 Urine Screen See Note 99 White Blood Count 9.9 K/uL 3.1-10.7 Laboratory test 06/13/2013 N2N/CCD Import ThinPrep Pap: See Note 100 finding Cervix/Endocx Laboratory test 06/13/2013 N2N/CCD Import Antibody Detection See Note 101 finding Bas% 0.2 % 0.0-1.1 Baso # 0.04 K/uL 0.0-0.1 Eo% 2.8 % 0.0-6.6 Eos # 0.47 K/uL 0.0-0.5 Hematocrit 42.6 % 36.0-46.1 Hemoglobin 14.5 gm/dL 11.6-15.8 Hepatitis B Surface Antigen Nonreactive Nonreactive 102 Lead,Blood (Adult) 1 g/dL 0-19 103 Lymph # 2.84 K/uL 0.8-3.4 Lymph % 16.6 % Low 17.0-46.1 Mean Cell Volume 90.1 fl 80.9-99.0 Mean Corpuscular HGB 30.7 pg 25.9-32.7 Mean Corpuscular HGB Conc 34.0 g/dL 30.8-34.3 Mean Platelet Volume 10.6 fL 8.9-12.4 Whatcom # 1.10 K/uL High 0.3-0.9 Whatcom % 6.4 % 4.3-13.2 Neut# 12.61 K/uL High 1.0-7.0 Neut% 74.0 % High 40.4-72.8 Platelet Count 352 K/uL 155-360 Rapid Plasma Reagin Nonreactive Nonreactive 104 Red Blood Count 4.73 M/uL 3.90-5.40 Red Cell Distri Width %CV 12.7 % 11.7-14.4 Red Cell Distri Width SD 41.0 fl 3-47 Rubella IgG Antibody Reactive Reactive Urine Culture See Note 105 Varicella-Zoster Virus IgG Ab 1.90 Immune>1.09in 106 White Blood Count 17.1 K/uL High 3.1-10.7 Chlamydia/GC 06/13/2013 N2N/CCD Import Chlamydia Negative Negative Amplification Trachomatis, Mary Neisseria Gonorrhoeae, Mary Negative Negative Please note: See Note 107 Genital Culture W/ Gram 06/13/2013 N2N/CCD Import Genital Culture See Note 108 Stain Gram Stain See Note 109 Type And 06/13/2013 N2N/CCD Import Antibody Screen Negative Negative Screen Patient Blood Type A Pos Laboratory test 06/07/2013 N2N/CCD Import Culture If Indicated See Note 110 finding Comment Urine Culture See Note 111 Urine HCG (Qualitative) Positive High Negative Urine Screen See Note 112 Urinalysis With 06/07/2013 N2N/CCD Import Urine Bacteria Very Few None Microscopic Seen Urine Bilirubin - Dipstick Negative Negative [...] Urine RBC 0-2 rbc/hpf 0-7 Urine Specific Atlantic <=1.005 Low 1.010-1.030 Urine Urobilinogen - Dipstick 0.2 E.U./dL 0.2-1.0 Urine WBC 20-30 wbc/hpf High 0-7 1 E11.65 2 Elevated levels of HbA1c suggest the need for more aggressive treatment of glycemia. The [place] [employer] recommends that a primary goal of therapy should be a HbA1c of <7% and that physicians should re-evaluate the treatment regimen in patients with HbA1c values consistently >8%. 3 Note: Persistent reduction for 3 months or more in an eGFR <60 mL/min/1.73 m2 defines CKD. Patients with eGFR values >/=60 mL/min/1.73 m2 may also have CKD if evidence of persistent proteinuria is present. The original MDRD equation for estimated GFR is not valid for patients less than 18 years of age. Additional information may be found at www.kdoqi.org. 4 Values below the stated reference ranges of AST and ALT can be seen in normal populations. Clinical correlation is suggested. 5 N30.00 6 > 100,000 CFU/mL 7 21 WKS PREG, FELT LIKE PASSING OUT 8 URINE, CLEAN CATCH 9 BACK PAIN, CRAMPS, 7 WEEKS 10 A negative result for either C. trachomatis and/or N. gonorrhoeae does not preclued an infection because results are dependent on adequate specimen collection, absence of inhibitors, and sufficient DNA to be detected. 11 URINE, CLEAN CATCH 12 VACUOLATED POLYS AND BANDS PRESENT 13 Method: CURRENT QuickVue One-Step Immunoassay 14 Approximate Gestational Age and Total BHCG Range: 0.2 - 1 Week........................5-50 mIU/mL 1 - 2 Weeks.....................50-500 mIU/mL 2 - 3 Weeks..................100-5,000 mIU/mL 3 - 4 Weeks.................500-10,000 mIU/mL 4 - 5 Weeks...............1,000-50,000 mIU/mL 5 - 6 Weeks.............10,000-100,000 mIU/mL 6 - 8 Weeks.............15,000-200,000 mIU/mL 2 - 3 Months............10,000-100,000 mIU/mL 15 Unable to add tests SPECIMEN IS HEMOLYZED CALLED CATY Fink NP IN ER TO INFORM TEST(S) COULD NOT BE ADDED AT 2321 02/15/18 by [facility] Tests: BMP Instructions: 16 Note: Persistent reduction for 3 months or more in an eGFR <60 mL/min/1.73 m2 defines CKD. Patients with eGFR values >/=60 mL/min/1.73 m2 may also have CKD if evidence of persistent proteinuria is present. The original MDRD equation for estimated GFR is not valid for patients less than 18 years of age. Additional information may be found at www.kdoqi.org. 17 Z32.01 N96 O09.91 18 Approximate Gestational Age and Total BHCG Range: 0.2 - 1 Week........................5-50 mIU/mL 1 - 2 Weeks.....................50-500 mIU/mL 2 - 3 Weeks..................100-5,000 mIU/mL 3 - 4 Weeks.................500-10,000 mIU/mL 4 - 5 Weeks...............1,000-50,000 mIU/mL 5 - 6 Weeks.............10,000-100,000 mIU/mL 6 - 8 Weeks.............15,000-200,000 mIU/mL 2 - 3 Months............10,000-100,000 mIU/mL 19 N91.2 20 Approximate Gestational Age and Total BHCG Range: 0.2 - 1 Week........................5-50 mIU/mL 1 - 2 Weeks.....................50-500 mIU/mL 2 - 3 Weeks..................100-5,000 mIU/mL 3 - 4 Weeks.................500-10,000 mIU/mL 4 - 5 Weeks...............1,000-50,000 mIU/mL 5 - 6 Weeks.............10,000-100,000 mIU/mL 6 - 8 Weeks.............15,000-200,000 mIU/mL 2 - 3 Months............10,000-100,000 mIU/mL 21 E11.65 22 Elevated levels of HbA1c suggest the need for more aggressive treatment of glycemia. The [place] [employer] recommends that a primary goal of therapy should be a HbA1c of <7% and that physicians should re-evaluate the treatment regimen in patients with HbA1c values consistently >8%. 23 L60.9 24 Final report Result 1 Hyphae observed 25 Fungus (Mycology) Culture Final report Result 1 Penicillium species Result 2 Scopulariopsis species Performed at: RN - [facility] [address] [id number] Lens Inspector: Shelby York MD, Phone: [phone] E11.65 27 Elevated levels of HbA1c suggest the need for more aggressive treatment of glycemia. The [place] [employer] recommends that a primary goal of therapy should be a HbA1c of <7% and that physicians should re-evaluate the treatment regimen in patients with HbA1c values consistently >8%. 28 N76.0 29 Method: BD Affirm VPIII DNA Probe Assay 30 E11.65 31 Note: Persistent reduction for 3 months or more in an eGFR <60 mL/min/1.73 m2 defines CKD. Patients with eGFR values >/=60 mL/min/1.73 m2 may also have CKD if evidence of persistent proteinuria is present. The original MDRD equation for estimated GFR is not valid for patients less than 18 years of age. Additional information may be found at www.kdoqi.org. 32 Values below the stated reference ranges of AST and ALT can be seen in normal populations. Clinical correlation is suggested. 33 Elevated levels of HbA1c suggest the need for more aggressive treatment of glycemia. The [place] [employer] recommends that a primary goal of therapy should be a HbA1c of <7% and that physicians should re-evaluate the treatment regimen in patients with HbA1c values consistently >8%. 34 Reference Guidelines*: Desirable: ........... < 200 mg/dL Borderline High: ..... 200-239 mg/dL High: ................ >=240 mg/dL * The National Cholesterol Education Program (NCEP) 35 Reference Guidelines*: Normal: ............. < 150 mg/dL Borderline High: .... 150-199 mg/dL High: ............... 200-499 mg/dL Very High: .......... > 500 mg/dL * Source: National Cholesterol Education Program (NCEP) 36 Reference Guidelines*: Low HDL: ..... < 40 mg/dL Normal: ..... 40-60 mg/dL Desirable: ... > 60 mg/dL *The National Cholesterol Education Program(NCEP) 37 Reference Guidelines*: Optimal:........... <100 mg/dL Near Optimal....... 100-129 mg/dL Borderline High.... 130-159 mg/dL High............... 160-189 mg/dL Very High.......... >=190 mg/dL * Source: National Cholesterol Education Program (NCEP) 38 ABOUT 6WKS PREG SEVERE BACK PAIN 39 Approximate Gestational Age and Total BHCG Range: 0.2 - 1 Week........................5-50 mIU/mL 1 - 2 Weeks.....................50-500 mIU/mL 2 - 3 Weeks..................100-5,000 mIU/mL 3 - 4 Weeks.................500-10,000 mIU/mL 4 - 5 Weeks...............1,000-50,000 mIU/mL 5 - 6 Weeks.............10,000-100,000 mIU/mL 6 - 8 Weeks.............15,000-200,000 mIU/mL 2 - 3 Months............10,000-100,000 mIU/mL 40 Instrument flagged sample for slide review. Less than 10% Bands seen, no other immature WBC's seen. RBC morphology essentially normal. Platelet estimate=NORMAL 41 Elevated levels of HbA1c suggest the need for more aggressive treatment of glycemia. The [place] [employer] recommends that a primary goal of therapy should be a HbA1c of <7% and that physicians should re-evaluate the treatment regimen in patients with HbA1c values consistently >8%. 42 Note: Persistent reduction for 3 months or more in an eGFR <60 mL/min/1.73 m2 defines CKD. Patients with eGFR values >/=60 mL/min/1.73 m2 may also have CKD if evidence of persistent proteinuria is present. The original MDRD equation for estimated GFR is not valid for patients less than 18 years of age. Additional information may be found at www.kdoqi.org. 43 Values below the stated reference ranges of AST and ALT can be seen in normal populations. Clinical correlation is suggested. 44 GRAM STAIN ! FEW GRAM POSITIVE COCCI ! RARE GRAM POS BACILLI SUGGESTIVE OF CORYNEBACTERIA ! FEW WHITE BLOOD CELLS ! RARE EPITHELIAL CELLS 45 Organism 1 ! METHICILLIN RESISTANT S.AUREUS Quantity [...] AZITHROMYCIN R PIPERACILLIN R VANCOMYCIN <=0.5 S 46 Interpretation: ATYPICAL SQUAMOUS CELLS OF UNDETERMINED SIGNIFICANCE (ASC-US). SHIFT IN ML SUGGESTIVE OF BACTERIAL VAGINOSIS. Specimen Adequacy: SATISFACTORY FOR EVALUATION. Additional Findings: ENDOCERVICAL/TRANSFORMATION ZONE PRESENT. Cytology Laboratory [address] [place] [address], [address] [place] [address] CYTOLOGY REPORT Name: Shari Mann : 1990 (Age: 25) Sex: F Location: [facility] Med. Rec. # [id number] Date Collected: 10/07/2015 Billing #: [id number] Date Received: 10/07/2015 Requisition # [id number] Physician(s): KHADAR OROZCO Source of Specimen: ENDOCERVICAL/ECTOCERVICAL THIN PREP Clinical Information: Date of Last Menstrual Period: 10/09/15 Dysplasia/Cancer History: LSIL Electronic Signature Darion San MD Reported: 10/08/2015 Also seen by: EDUARDO Oh (ASCP) [employer] HPV High Risk Date Ordered: 10/08/2015 Status: Signed Out Date Reported: 10/10/2015 High Risk NEGATIVE (HPV Types 16, 18, 31, 33, 35, 39, 45, 51, 52, 56, 58, 59, 66, 68) APTIMA Electronic Signature Sussy Hurt [place] [employer] Dx Code(s): Z01.419 A; R87.610 N76.0 47 Elevated levels of HbA1c suggest the need for more aggressive treatment of glycemia. The [place] [employer] recommends that a primary goal of therapy should be a HbA1c of <7% and that physicians should re-evaluate the treatment regimen in patients with HbA1c values consistently >8%. 48 Note: Persistent reduction for 3 months or more in an eGFR <60 mL/min/1.73 m2 defines CKD. Patients with eGFR values >/=60 mL/min/1.73 m2 may also have CKD if evidence of persistent proteinuria is present. The original MDRD equation for estimated GFR is not valid for patients less than 18 years of age. Additional information may be found at www.kdoqi.org. 49 Values below the stated reference ranges of AST and ALT can be seen in normal populations. Clinical correlation is suggested. 50 Acceptable specimens for this test are male urethral swab, endocervical swab and liquid based pap specimens, vaginal swabs in APTIMA transports and first void urine. See online Directory of Services for test number for rectal and pharyngeal specimens. Performed at: RN - [facility] [address] [id number] Lens Inspector: Shelby York MD, Phone: [phone] 51 DUPLICATE 52 FIRST MORNING SPECIMENS GENERALLY CONTAIN THE HIGHEST CONCENTRATION OF HCG AND ARE RECOMMENDED FOR EARLY DETECTION OF . 53 [employer] Agent: [id number] [employer] [place] 54 PATIENT COULD NOT VOID 55 Elevated levels of HbA1c suggest the need for more aggressive treatment of glycemia. The [place] [employer] recommends that a primary goal of therapy should be a HbA1c of <7% and that physicians should re-evaluate the treatment regimen in patients with HbA1c values consistently >8%. 56 Elevated levels of HbA1c suggest the need for more aggressive treatment of glycemia. The [place] [employer] recommends that a primary goal of therapy should be a HbA1c of <7% and that physicians should re-evaluate the treatment regimen in patients with HbA1c values consistently >8%. 57 Organism 1 ! BETA HEMOLYTIC STREP NON A Quantity ! FEW 58 Result confirmed by repeat analysis. 59 Note: Persistent reduction for 3 months or more in an eGFR <60 mL/min/1.73 m2 defines CKD. Patients with eGFR values >/=60 mL/min/1.73 m2 may also have CKD if evidence of persistent proteinuria is present. The original MDRD equation for estimated GFR is not valid for patients less than 18 years of age. Additional information may be found at www.kdoqi.org. 60 CALLED ANA Lees WITH GLU AT 1705 05/16/15 by LAB.MPK 61 Elevated levels of HbA1c suggest the need for more aggressive treatment of glycemia. The [place] [employer] recommends that a primary goal of therapy should be a HbA1c of <7% and that physicians should re-evaluate the treatment regimen in patients with HbA1c values consistently >8%. 62 03/15/15 LAB.DWM Deleted by [facility] 63 has appt 02/12/15 to discuss 64 Note: Persistent reduction for 3 months or more in an eGFR <60 mL/min/1.73 m2 defines CKD. Patients with eGFR values >/=60 mL/min/1.73 m2 may also have CKD if evidence of persistent proteinuria is present. The original MDRD equation for estimated GFR is not valid for patients less than 18 years of age. Additional information may be found at www.kdoqi.org. 65 Values below the stated reference ranges of AST and ALT can be seen in normal populations. Clinical correlation is suggested. 66 Elevated levels of HbA1c suggest the need for more aggressive treatment of glycemia. The [place] [employer] recommends that a primary goal of therapy should be a HbA1c of <7% and that physicians should re-evaluate the treatment regimen in patients with HbA1c values consistently >8%. 67 Reference Guidelines*: Desirable: ........... < 200 mg/dL Borderline High: ..... 200-239 mg/dL High: ................ >=240 mg/dL * The National Cholesterol Education Program (NCEP) 68 Reference Guidelines*: Low HDL: ..... < 40 mg/dL Normal: ..... 40-60 mg/dL Desirable: ... > 60 mg/dL *The National Cholesterol Education Program(NCEP) 69 Reference Guidelines*: Optimal:........... <100 mg/dL Near Optimal....... 100-129 mg/dL Borderline High.... 130-159 mg/dL High............... 160-189 mg/dL Very High.......... >=190 mg/dL * Source: National Cholesterol Education Program (NCEP) 70 Reference Guidelines*: Normal: ............. < 150 mg/dL Borderline High: .... 150-199 mg/dL High: ............... 200-499 mg/dL Very High: .......... > 500 mg/dL * Source: National Cholesterol Education Program (NCEP) 71 This high-risk HPV test detects thirteen high-risk types (16/18/31/33/35/39/45/51/52/56/58/59/68) without differentiation. Performed at: RN - [facility] [address] [id number] Lens Inspector: Shelby York MD, Phone: [phone] 72 OPERATION/PROCEDURE Biopsy of cervix DIAGNOSIS: "CERVICAL BIOPSY": MINUTE FRAGMENT OF SUPERFICIAL SQUAMOUS EPITHELIUM, INSUFFICIENT FOR EVALUATION OF SQUAMOUS EPITHELIAL ABNORMALITY, SEE COMMENT. CERVICAL STROMA WITH CHRONIC INFLAMMATION. /clf INTERPRETATION COMMENT The previous Pap smear ([id number]) is concurrently reviewed. The diagnosis of low-grade [...] submitted in toto within a single cassette. JW/clf MICROSCOPIC Sections show cervical stroma with endocervical glandular component with squamous metaplasia, and chronic inflammation. A minute fragment of superficial squamous epithelium is seen, insufficient for evaluation of squamous epithelial abnormality. PRE OPERATIVE DIAGNOSIS Atypical Paps LGSIL REVIEW CODE CODE: I ---- Signed Electronically signed CHRIS BRYAN MD 07/27/14 3266 ---- 73 CYTOLOGY SCREENER - BLOCK TRIMMER @ 12/11 Screened by: Lucy Jimenez [facility](ASCP) PAP: FINAL REPORT SPECIMEN ADEQUACY: SPECIMEN SATISFACTORY FOR INTERPRETATION ADEQUATE ENDOCERVICAL/TRANSFORMATION ZONE NOTED INTERPRETATION: LOW-GRADE SQUAMOUS INTRAEPITHELIAL LESION COMMENT: COLPOSCOPY WITH CERVICAL \\E&E\\ ENDOCERVICAL BIOPSIES SUGGESTED THINPREP PREPARED PAP SLIDE # Prepared in the Cytology laboratory from the ThinPrep sample is 1 ThinPrep smear. PAP ACCESSI QUESTIONNAIRE 11/09 PERTINENT CLINICAL HISTORY FOR PAP (BLOCK TRIMMER) CYTOLOGY (Check all that apply): ? N Post ? N Menopause? LMP date: Y Last Pap: at [facility]? Y Abnormal Pap? If Yes, date: 06/13/13 If patient had related surgical procedure: What Procedure? LGSIL Related Therapy: IUD: Oral Contraception: Depo: Y Nova Ring: Hormone Replacement: Foundation Assistant Patient Number: [id number] Significant Clinical History: 795.09 ==== DISCLAIMER: The [...] Signed Electronically signed CHAMP SHER MD 07/25/14 1654 ---- 74 [facility] [address] [place] [address], [address] [place] [address] AFFIRM VAGINOSIS / VAGINITIS REPORT Name: Shari Mann : 1990 (Age: 24) Sex: F Location : [facility] Med. Rec. # [id number] Date Collected: 07/05/2014 Billing # : [id number] Date Received: 07/05/2014 Requisition # [id number] Physician(s): KHADAR OROZCO Source of Specimen: Vaginal Results: Tammie species DNA Probe NEGATIVE Gardnerella vaginalis DNA Probe NEGATIVE Trichomonas vaginalis DNA Probe NEGATIVE Reported: 07/08/[address] Josefina [facility] ICD-9 Codes: 112.1 75 COLONY COUNT ! >100,000 CFU/ml Organism 1 ! MIXED URETHRAL ML SPECIMEN IS A MIX OF GRAM POSITIVE ORGANISMS CONSISTENT WITH SKIN/VAGINAL ML. UNABLE TO DETERMINE WHICH ORGANISMS ARE FROM THE URINARY TRACT OR ARE THE RESULT OF CONTAMINATION DURING COLLECTION. SUGGEST PREPEAT SPECIMEN IF CLINICALLY INDIATED. 76 A1c value between 5.7% and 6.4% is considered at increased risk for diabetes. A1c value greater than 6.5 % is considered essentially diagnostic for Type II diabetes. Current guidelines recommend a treatment goal of <7% for diabetic patients. This method will measure glycosylated hemoglobin variants, HbS, HbG , HbH, HbWayne, HbC, HbE, etc. Other hemoglobin- opathies may give incorrect results with this test. 77 COLONY COUNT ! >100,000 CFU/ml Organism 1 ! MIXED URETHRAL ML 78 Approximate Gestational Age and Total BHCG Range: 0.2 - 1 Week........................5-50 mIU/mL 1 - 2 Weeks.....................50- 500 mIU/mL 2 - 3 Weeks..................100-5,000 mIU/mL 3 - 4 Weeks.................500-10,000 mIU/mL 4 - 5 Weeks...............1,000-50, 000 mIU/mL 5 - 6 Weeks.............10,000-100,000 mIU/mL 6 - 8 Weeks.............15,000-200,000 mIU/mL 2 - 3 Months............10,000-100, 000 mIU/mL 79 Approximate Gestational Age and Total BHCG Range: 0.2 - 1 Week........................5-50 mIU/mL 1 - 2 Weeks.....................50- 500 mIU/mL 2 - 3 Weeks..................100-5,000 mIU/mL 3 - 4 Weeks.................500-10,000 mIU/mL 4 - 5 Weeks...............1,000-50, 000 mIU/mL 5 - 6 Weeks.............10,000-100,000 mIU/mL 6 - 8 Weeks.............15,000-200,000 mIU/mL 2 - 3 Months............10,000-100, 000 mIU/mL 80 Note: Persistent reduction for 3 months or more in an eGFR <60 mL/min/1.73 m2 defines CKD. Patients with eGFR values >/=60 mL/min/1.73 m2 may also have CKD if evidence of persistent proteinuria is present. The original MDRD equation for estimated GFR is not valid for patients less than 18 years of age. Additional information may be found at www.kdoqi.org. 81 05/08/14 LAB.CKS Deleted by [facility] 82 NOT INDICATED,TYPE ON FILE 83 CULTURE TO FOLLOW 84 Approximate Gestational Age and Total BHCG Range: 0.2 - 1 Week........................5-50 mIU/mL 1 - 2 Weeks.....................50- 500 mIU/mL 2 - 3 Weeks..................100-5,000 mIU/mL 3 - 4 Weeks.................500-10,000 mIU/mL 4 - 5 Weeks...............1,000-50, 000 mIU/mL 5 - 6 Weeks.............10,000-100,000 mIU/mL 6 - 8 Weeks.............15,000-200,000 mIU/mL 2 - 3 Months............10,000-100, 000 mIU/mL 85 COLONY COUNT ! >100,000 CFU/ml Organism 1 [...] S GENTAMICIN <=1 S TOBRAMYCIN <=1 S 86 01/01/14 LAB.ZANE NOT INDICATED 87 01/01/14 LAB.DWM Deleted by [facility] 88 HDL Interpretation: Undesirable: High Risk: Less than 40 mg/dL Desirable: Low Risk: Greater than 60 mg/dL 89 Unable to calculate LDL as triglyceride is > 400 90 Because ethnic data is not always readily [...] 15-29 5 Kidney failure <15 (or dialysis) 91 Therapeutic target for the treatment of diabetes Mellitus patients is <7% HBA1C, and in selective patients <6.0%.Please refer to [place] [employer] Diabetic care guidelines for further information. 92 Test Performed by: [place] [address] [employer] Engineer: Brennan Murillo III, M.D. 93 Test Performed by: [address] [id number] [employer] Engineer: Brennan Murillo III, M.D. 94 [facility] [address] [place] [address], [address] [place] [address] AFFIRM VAGINOSIS / VAGINITIS REPORT Name: Shari Ocasio : 1990 (Age: 23) Sex: F [facility] Med. Rec. # [id number] Date Collected: 11/16/2013 Billing #: [id number] Date Received: 11/16/2013 Physician(s): KHADAR OROZCO Source of Specimen: Vaginal Results: Tammie species DNA Probe NEGATIVE Gardnerella vaginalis DNA Probe POSITIVE Trichomonas vaginalis DNA Probe NEGATIVE Reported: 11/19/2013 Electronic Signature eduardo Ramirez [facility] ICD-9 Codes: 616.10 95 [facility] [address] [place] [address], [address] [place] [address] GC / CHLAMYDIA REPORT Name: Shari Ocasio : 1990 (Age: 23) Sex: F Location: [facility] Med. Rec. # [id number] Date Collected: 11/16/2013 Billing #: [id number] Date Received: 11/16/2013 Physician(s): KHADAR OROZCO Source of Specimen: Endocervical swab Results: Neisseria gonorrhoeae NEGATIVE Chlamydia trachomatis NEGATIVE Comment: This analysis was performed using second generation nucleic acid amplification testing (NAAT). Reported: 11/19/2013 Electronic Signature eduardo Rocha [facility] ICD-9 Codes: 616.10 96 DIAGNOSIS: "PRODUCTS OF CONCEPTION": TISSUE CONSISTENT WITH FIRST TRIMESTER INTRAUTERINE . /clf GROSS Received in a single container appropriately [...] The remaining placenta is spongiform, and unremarkable. Change Management Director sections are submitted within a single cassette. Ws/clf MICROSCOPIC Sections reveal edematous chorionic villi and decidual tissue. PRE OPERATIVE DIAGNOSIS Vaginal bleeding, low abdominal pain REVIEW CODE CODE: I ---- CHAMP Monterroso MD 06/28/13 1540 ---- 97 Result confirmed by repeat analysis. Approximate Gestational Age and Total BHCG Range: 0.2 - 1 Week........................5-50 mIU/mL 1 - 2 Weeks.....................50-500 mIU/mL 2 - 3 Weeks..................100-5, 000 mIU/mL 3 - 4 Weeks.................500-10,000 mIU/mL 4 - 5 Weeks...............1,000-50,000 mIU/mL 5 - 6 Weeks.............10,000-100, 000 mIU/mL 6 - 8 Weeks.............15,000-200,000 mIU/mL 2 - 3 Months............10,000-100,000 mIU/mL 98 Approximate Gestational Age and Total BHCG Range: 0.2 - 1 Week........................5-50 mIU/mL 1 - 2 Weeks.....................50- 500 mIU/mL 2 - 3 Weeks..................100-5,000 mIU/mL 3 - 4 Weeks.................500-10,000 mIU/mL 4 - 5 Weeks...............1,000-50, 000 mIU/mL 5 - 6 Weeks.............10,000-100,000 mIU/mL 6 - 8 Weeks.............15,000-200,000 mIU/mL 2 - 3 Months............10,000-100, 000 mIU/mL 99 06/25/13 LAB.ZANE Deleted by [facility] 100 PAP: FINAL REPORT SPECIMEN ADEQUACY: SPECIMEN SATISFACTORY FOR INTERPRETATION INTERPRETATION: LOW-GRADE SQUAMOUS INTRAEPITHELIAL LESION COMMENT: THINPREP PREPARED PAP SLIDE # Prepared in the Cytology laboratory from the ThinPrep sample is 1 ThinPrep smear. PAP ACCESSI QUESTIONNAIRE 11/09 PERTINENT CLINICAL HISTORY FOR PAP (BLOCK TRIMMER) CYTOLOGY (Check all that apply): ? Y [...] ---- CHAMP Monterroso MD 06/14/13 1428 ---- 101 No reportable results 102 HBsAg not detected; does not exclude the possibility of exposure to or early acute infections with HBV. 103 The Centers for Disease Control and Prevention states blood lead levels less than 10 ug/dL in children have been associated with numerous adverse health effects. [facility] Guidelines: Blood lead levels in the range 5-9 ug/dL have been associated with adverse health effects in children aged 6 years and younger. Environmental Exposure: WHO Recommendation <20 Occupational Exposure: OSHA Lead Std 40 Detection Limit=1 104 PENDING; TEST PERFORMED ON MONDAYS AND THURSDAYS 105 COLONY COUNT ! 80,000-100,000 CFU/ml Organism 1 ! MIXED URETHRAL ML 106 Nonimmune <0.91 Equivocal 0.91 - 1.09 Immune >1.09 Performed at: [facility] [employer] [id number] Lens Inspector: Shelby York MD, Phone: [phone] 107 Acceptable specimens for this test are male urethral swab, endocervical swab and liquid based pap specimens, vaginal swabs in APTIMA transports and first void urine. See online Directory of Services for test number for rectal and pharyngeal specimens. Performed at: [address] [id number] Lens Inspector: Shelby York MD, Phone: [phone] 108 GENITAL ML 109 GRAM STAIN ! GRAM STAIN INDICATES NORMAL GENITAL ML ! FEW GR POS. BACILLI SUGGESTIVE OF LACTOBACILLUS SP. 110 CULTURE TO FOLLOW 111 COLONY COUNT ! >100,000 CFU/ml Organism 1 [...] S GENTAMICIN <=1 S TOBRAMYCIN <=1 S 112 06/07/13 LAB.MPK Deleted by [facility] Procedures Date Code Description Status 01/09/2019 24311 Insertion, Non-Biodegradable Drug Delivery Implant Completed 09/15/2017 [id number] Diabetic Foot Exam Completed 08/02/2017 78851 Theraputic Or Diagnostic Injection Completed 08/01/2014 35115 Cryocautery Of Cervix Completed 07/24/2014 58332 Colposcopy With Biopsy Completed 06/13/2013 57263 Antepartum 7 Or More Total Office Visit Completed Encounters Type Date Location Provider Dx Diagnosis Office Visit 01/09/2019 [facility] [place], Z30.017 Enctr for init 1:00p Sandoval Rubalcava, prescription of RATE SETTER implntbl subdermal contracep E11.65 Type 2 diabetes mellitus with hyperglycemia Office Visit 06/19/2018 1:30p [facility] Jessica Parada, N30.00 Acute cystitis Sandoval RODGERS MD without hematuria B34.9 Viral infection, unspecified Office Visit 04/25/2018 [facility] E11.9 Type 2 diabetes 2:45p ERNESTO Wagner mellitus without RD complications Z33.1 state, incidental F17.210 Nicotine dependence, cigarettes, uncomplicated Office Visit 01/23/2018 [facility] Z32.01 Encounter for 2:30p ERNESTO Wagner test, RD result positive E11.65 Type 2 diabetes mellitus with hyperglycemia Office Visit 01/20/2018 [facility], E11.65 Type 2 diabetes 2:00p Medicine ERNESTO Cho mellitus with RD hyperglycemia L60.9 Nail disorder, unspecified Office Visit 09/15/2017 [facility], E11.65 Type 2 diabetes 1:15p Medicine Sandoval RojassubhaERNESTO kincaid mellitus with RD hyperglycemia L60.9 Nail disorder, unspecified Office Visit 08/12/2017 2:00p [facility], N76.0 [facility] Z30.011 Encounter for initial prescription of contraceptive pills E11.65 Type 2 diabetes mellitus with hyperglycemia Office Visit 08/04/2017 10:15a [facility] Annemarie Avila, Z00.00 Encntr for Sandoval RODGERS M.D. general adult medical exam w/o abnormal findings E11.65 Type 2 diabetes mellitus with hyperglycemia F17.210 Nicotine dependence, cigarettes, uncomplicated Z23 Encounter for immunization Office Visit 05/06/2017 1:30p [facility], N63 Unspecified lump Medicine ERNESTO Cho in breast RD E11.65 Type 2 diabetes mellitus with hyperglycemia F17.210 Nicotine dependence, cigarettes, uncomplicated Z71.6 Tobacco abuse counseling Z23 Encounter for immunization B37.2 Candidiasis of skin and nail Office Visit 08/19/2016 [facility], Z32.01 Encounter for 3:00p Medicine ERNESTO Cho test, RD result positive E11.65 Type 2 diabetes mellitus with hyperglycemia F17.210 Nicotine dependence, cigarettes, uncomplicated Office Visit 11/25/2015 [facility], E11.65 Type 2 diabetes 2:45p Medicine ERNESTO Cho mellitus with RD hyperglycemia G56.02 Carpal tunnel syndrome, left upper limb G56.01 Carpal tunnel syndrome, right upper limb Office Visit 10/22/2015 10:45a [facility] Medicine Annemarie Avila, B37.2 Candidiasis of Sandoval RODGERS M.D. skin and nail L02.818 Cutaneous abscess of other sites Office Visit 10/15/2015 9:00a [facility] Annemarie Avila, L02.818 Cutaneous Sandoval RODGERS M.D. 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 marine mammal trainer 1:00p Medicine [place] ERNESTO Rubalcava exam (general) RD (routine) w/o abn findings R21 Rash and other nonspecific skin eruption E11.65 Type 2 diabetes mellitus with hyperglycemia Office Visit 09/16/2015 [facility] [place], E11.65 Type 2 diabetes 1:00p Medicine [place] YVONNE RubalcavaP mellitus with RD hyperglycemia Office Visit 09/09/2015 [facility] [place] E11.65 Type 2 diabetes 2:15p Medicine [place] YVONNE RubalcavaP mellitus with RD hyperglycemia R21 Rash and other nonspecific skin eruption F17.210 Nicotine dependence, cigarettes, uncomplicated Office Visit 06/04/2015 [facility] [place], 250.02 Diabetes 11:00a [facility] ERNESTO Rubalcava Mellitus W/O RD Compl Type II Or Unspec Type Uncontrol 308.3 Stress Reaction Other Acute 782.1 Rash & Other Nonspec Skin Eruption Office Visit 04/15/2015 [facility] [place], 250.02 Diabetes 1:45p Medicine [place] YVONNE RubalcavaP Mellitus W/O RD Compl Type II Or Unspec Type Uncontrol 782.1 Rash & Other Nonspec Skin Eruption V15.81 History Personal Noncompliance W/ Medical Treatment Office Visit 04/02/2015 1:30p [facility] Jessica Ocasio, 462 Pharyngitis Acute [place] ANA MARIA MENDES 305.1 Tobacco Use Disorder Office Visit 02/05/2015 [facility] [place], 250.02 Diabetes 2:00p [facility] ERNESTO Rubalcava Mellitus W/O RD Compl Type II Or Unspec Type Uncontrol 388.70 Otalgia & Earache Unspec 616.10 Bacterial Vaginosis Plan of Treatment 01/09/2019 - Khadar [facility] FNPZ30.017 Encounter for initial prescription of implantable subdermalNew Medication:Nexplanon 68 mg - lot [id number] right armComments:Patient instructed to watch for signs and symptoms of infection, such as fever, chills, increasing pain and redness, foul smelling drainage. If any, they should contact the office, or go to emergency room.E11.65 Type 2 diabetes mellitus with hyperglycemiaNew Medication:Glyburide 5 mg - 1 by mouth every dayComments:A1C ordered todayBegin rechecking fasting sugars more regularlyRestart Glyburideincrease Basaglar by1 unit every day until fasting sugars are around 100 without hypoglycemic events (lows).
--- NOTE | 2019-01-21 14:49 | UC ---
FLU HPI - HPI Summary HPI Summary: 28-year-old female presents with onset of sudden onset of fever, chills, malaise , body aches, nasal congestion, runny nose, sore throat, and a nonproductive cough yesterday. Denies ear pain, dysphagia, chest pain, shortness of breath, abdominal pain, nausea, vomiting, or diarrhea. - History of Current Complaint Stated Complaint: FLU SX'S Time Seen by Provider: 01/21/19 14:48 Hx Obtained From: Patient Hx Last Menstrual Period: 07/03/15 - Allergy/Home Medications Allergies/Adverse Reactions: Allergies Allergy/AdvReac Type Severity Reaction Status Date / Time amoxicillin Allergy Hives Verified 01/21/19 14:54 cephalexin [From Keflex] Allergy Hives Verified 01/21/19 14:54 Penicillins Allergy Hives Verified 01/21/19 14:54 Home Medications: Home Medications D-Methorphan/PE/Acetaminophen [Tylenol Cold Max Day Caplet] 2 each PO ONCE PRN 01/21/19 [History Confirmed 01/21/19] glyBURIDE [Glyburide] 5 mg PO DAILY 01/21/19 [History Confirmed 01/21/19] PMH/Surg Hx/FS Hx/Imm Hx Previously Healthy: Yes Endocrine History: Diabetes - Surgical History Surgical History: Yes Surgery Procedure, Year, and Place: appy - Family History Known Family History: Positive: Diabetes - Social History Occupation: Employed Full-time Lives: With Family Alcohol Use: None Substance Use Type: None Smoking Status (MU): Heavy Every Day Tobacco Smoker Type: Cigarettes Amount Used/How Often: 1/2 pack daily Household Exposure Type: Cigarettes Review of Systems All Other Systems Reviewed And Are Negative: Yes Constitutional: Positive: Fever, Chills, Fatigue Skin: Negative: Rash Eyes: Negative: Drainage, Eye Redness ENT: Positive: Sore Throat, Nasal Discharge, Sinus Congestion. Negative: Ear Ache, Sinus Pain/Tenderness Respiratory: Positive: Cough. Negative: Shortness Of Breath Cardiovascular: Negative: Palpitations, Chest Pain Gastrointestinal: Negative: Abdominal Pain, Vomiting, Diarrhea, Nausea Genitourinary: Positive: Negative Musculoskeletal: Positive: Myalgia Neurological: Positive: Headache Is Patient Immunocompromised?: No Physical Exam - Summary Physical Exam Summary: GENERAL APPEARANCE: Well developed, well nourished, alert and cooperative, and appears to be in no acute distress. EYES: Conjunctiva clear. No drainage. Vision is grossly intact. EARS: External auditory canals and tympanic membranes clear, hearing grossly intact. NOSE: Mild-moderate nasal congestion with clear discharge. THROAT: Pharyngeal erythema. No tonsilar inflammation, swelling, exudate, or lesions. Uvula midline. Oral cavity normal. Teeth and gingiva in good general condition. NECK: Neck supple, non-tender without lymphadenopathy. CARDIAC: Normal S1 and S2. No S3, S4 or murmurs. Rhythm is regular. There is no peripheral edema, cyanosis or pallor. Extremities are warm and well perfused. Capillary refill is less than 2 seconds. Peripheral pulses intact. LUNGS: Clear to auscultation without rales, rhonchi, wheezing or diminished breath sounds. Dry, non-productive cough. ABDOMEN: Positive bowel sounds. Soft, nondistended, nontender. No guarding or rebound. No masses or hepatosplenomegally. MUSKULOSKELETAL: ROM intact to all extremities. No joint erythema or tenderness. Normal muscular development. Normal gait. SKIN: Skin normal color, texture and turgor with no lesions or eruptions. Triage Information Reviewed: Yes Vital Signs Reviewed: Yes Flu Course/Dx - Course Course Of Treatment: 28-year-old female presents with onset of sudden onset of fever, chills, malaise , body aches, nasal congestion, runny nose, sore throat, and a nonproductive cough yesterday. Denies ear pain, dysphagia, chest pain, shortness of breath, abdominal pain, nausea, vomiting, or diarrhea. Afebrile, hypertensive otherwise vital signs stable. Exam remarkable for mild to moderate nasal congestion, clear nasal discharge, pharyngeal erythema without tonsillar swelling, exudate, or cervical lymphadenopathy, and a dry nonproductive cough. Symptoms are consistent with the flu. Discussed risks and benefits of starting Tamiflu and patient is electing to start at this time. Also recommending symptomatic treatment. She is to follow-up with a primary care provider in 7 days if symptoms do not improve. Anticipatory guidance and warning symptoms reviewed with the patient. Verbalizes understanding and agrees with plan of care. - Differential Dx/Diagnosis Differential Diagnosis/HQI/PQRI: Bronchitis, Influenza, Pneumonia, Upper Respiratory Infection Provider Diagnosis: Influenza Discharge - Sign-Out/Discharge Documenting (check all that apply): Patient Departure All imaging exams completed and their final reports reviewed: No Studies - Discharge Plan Condition: Stable Disposition: HOME Prescriptions: Benzonatate CAP* [Tessalon 100 MG CAP*] 100 mg PO TID PRN #30 cap PRN Reason: Cough Oseltamivir CAP* [Tamiflu CAP*] 75 mg PO BID #10 cap Patient Education Materials: Influenza (ED) Forms: *Work Release Referrals: Patricia Arnold NP [Primary Care Provider] - 7 Days (If not improvement.) Additional Instructions: Your flu test in the clinic today was positive for influenza A. Start Tamiflu 1 capsule twice a day for 5 days. Get plenty of rest. Drink plenty of fluids to avoid dehydration especially if you are running any fever. Take over the counter acetaminophen (Tylenol) or ibuprofen (Advil, Motrin) according to directions as needed for pain or fever. Take Tessalon Perles 1 cap every 8 hours as needed for cough. Use salt water gargles several times a day if you have a sore throat. You may also use Chloraseptic spray or Cepacol lonzenges according to directions which contain a numbing medication and can provide some temporary relief from your sore throat. Follow up with your primary care provider in 7 days if symptoms persist. Your blood pressure was slightly elevated in the clinic today. It is recommended that you have this rechecked by your primary care provider within 4 weeks. Seek immediate medical attention in the emergency room if you have fever greater than 100.5 F despite taking acetaminophen or ibuprofen, have chest pain , difficulty breathing, are unable to swallow, or have any worsening of symptoms. - Billing Disposition and Condition Condition: STABLE Disposition: Home - Attestation Statements Provider Attestation: Per institutional requirements, I have reviewed the chart, however, I was not consulted specifically or made aware of this patient by the midlevel provider. I did not personally evaluate, interact with , or disposition this patient.
[2019-01-21 14:54] VITALS: BP 143/88
== END 2019-01-21 14:59 | disposition home or self-care (01) ==
LOC: UCCORT 14:40
DX: J11.1 Influenza due to unidentified influenza virus with other respiratory manifestations (principal); E11.9 Type 2 diabetes mellitus without complications; F17.210 Nicotine dependence, cigarettes, uncomplicated; Z88.0 Allergy status to penicillin; Z88.1 Allergy status to other antibiotic agents; Z79.84 Long term (current) use of oral hypoglycemic drugs
CPT/HCPCS: 99212; G0463

== ENCOUNTER 2019-03-11 11:10 | Emergency (ER) | payer OTHER ==
[2019-03-11 11:27] VITALS: BP 127/81
--- NOTE | 2019-03-11 11:33 | UC ---
Throat Pain/Nasal Phillip HPI - HPI Summary HPI Summary: 28 y/o female w/ PMHX of DM type II presents to the urgent care c/o sore throat , headache, fever, chills, nasal congestion w/ clear nasal discharge since Tuesday03/09/2019. Pain w/ swallowing is 04/09. Yesterday she developed a dry cough and left ear pain. She has taken OTC medications to alleviate symptoms. Pt is PNC allergic. Pt denies fever, dizziness, SOB, chest pain, abdominal pain , N/V/D. - History of Current Complaint Chief Complaint: UCGeneralIllness Stated Complaint: SORE THROAT Time Seen by Provider: 03/11/19 11:32 Hx Obtained From: Patient Hx Last Menstrual Period: 03/11/19 Onset/Duration: Gradual Onset, Lasting Days - 3 days, Still Present, Worse Since - today Severity: Moderate Pain Intensity: 6 Pain Scale Used: 0-10 Numeric Cough: Nonproductive - dry cough Associated Signs & Symptoms: Positive: Dysphagia, Sinus Discomfort, Nasal Discharge - yellowish, Other - left ear pain - Epiglottits Risk Factors Epiglottis Risk Factors: Negative - Allergies/Home Medications Allergies/Adverse Reactions: Allergies Allergy/AdvReac Type Severity Reaction Status Date / Time amoxicillin Allergy Hives Verified 01/21/19 14:54 cephalexin [From Keflex] Allergy Hives Verified 01/21/19 14:54 Penicillins Allergy Hives Verified 01/21/19 14:54 PMH/Surg Hx/FS Hx/Imm Hx Previously Healthy: Yes Endocrine History: Diabetes Respiratory History: Asthma - as a child - Surgical History Surgical History: Yes Surgery Procedure, Year, and Place: appy - Family History Known Family History: Positive: Hypertension, Diabetes - Social History Occupation: Employed Full-time Lives: With Family Alcohol Use: None Substance Use Type: None Smoking Status (MU): Heavy Every Day Tobacco Smoker Type: Cigarettes Amount Used/How Often: 1/2 pack daily Have You Smoked in the Last Year: Yes When Did the Patient Quit Smoking/Using Tobacco: 02/25/19 Household Exposure Type: Cigarettes Review of Systems All Other Systems Reviewed And Are Negative: Yes Constitutional: Positive: Chills, Other - body aches, decrease appetite Skin: Positive: Negative Eyes: Positive: Negative ENT: Positive: Sore Throat, Ear Ache - left ear pain, Nasal Discharge - yellowish, Sinus Congestion Respiratory: Positive: Cough - dry Cardiovascular: Positive: Negative Gastrointestinal: Positive: Negative Genitourinary: Positive: Negative Motor: Positive: Negative Neurovascular: Positive: Negative Musculoskeletal: Positive: Negative Neurological: Positive: Negative Psychological: Positive: Negative Is Patient Immunocompromised?: No Physical Exam - Summary Physical Exam Summary: VITAL SIGNS: Reviewed. GENERAL: Patient is a well developed and nourished female who is sitting comfortable in the examining table. Patient is not in any acute respiratory distress. HEAD AND FACE: No signs of trauma. No ecchymosis, hematomas or skull depressions. No sinus tenderness. EYES: PERRLA, EOMI x 2, No injected conjunctiva, no nystagmus. No photophobia. EARS: Hearing grossly intact. Left ear canal clear, LF TM injected w/ erythema and yellowish drainage, RT external ear canal clear, RT TM WNL. MOUTH: Positive pharynx with erythema, exudates, palatal petechiae. B/L tonsillar enlargement with exudate. Uvula in midline. NECK: Supple, trachea is midline, Positive anterior cervical lymphadenopathy, no JVD, no carotid bruit, no c-spine tenderness, neck with full ROM. No meningeal signs, no Kernig's or brudzinskis signs. CHEST: Symmetric, no tenderness at palpation LUNGS: Clear to auscultation bilaterally. No wheezing or crackles. CVS: Regular rate and rhythm, S1 and S2 present, no murmurs or gallops appreciated. ABDOMEN: Soft, non-tender. No signs of distention. No rebound no guarding, and no masses palpated. Bowel sounds are normal. EXTREMITIES: FROM in all major joints, no edema, no cyanosis or clubbing. NEURO: Alert and oriented x 3. No acute neurological deficits. Speech is normal and follows commands. SKIN: Dry and warm Triage Information Reviewed: Yes Vital Signs: Initial Vital Signs Temp 99.4 F 03/11/19 11:22 Pulse 121 03/11/19 11:22 Resp 16 03/11/19 11:22 BP 127/81 03/11/19 11:22 Pulse Ox 100 03/11/19 11:22 Throat Pain/Nasal Course/Dx - Course Course Of Treatment: 28 y/o female w/ PMHX of DM type II presents to the urgent care c/o sore throat , headache, fever, chills, nasal congestion w/ clear nasal discharge since Tuesday03/09/2019. Pain w/ swallowing is 04/09. Yesterday she developed a dry cough and left ear pain. She has taken OTC medications to alleviate symptoms. Pt is PNC allergic. Pt denies fever, dizziness, SOB, chest pain, abdominal pain , N/V/D. Hx obtained. Pt w/ pharyngitis and left otitis media on examination. Rapid strep:negative. Pt Rx Doxycycline PO and Advised to continue taken Ibuprofen to alleviate symptoms. if symptoms do not improve or worsen to return to the urgent care or f/u with PCP for further management. D/C instructions explained. Pt understood and agreed with D/C plan. - Differential Dx/Diagnosis Differential Diagnosis/HQI/PQRI: Influenza, Laryngitis, Mononucleosis, Otitis Media, Pharyngitis, Sinusitis, Tonsillitis, URI Provider Diagnosis: Acute viral pharyngitis, Left otitis media Discharge - Sign-Out/Discharge Documenting (check all that apply): Patient Departure - D/C home All imaging exams completed and their final reports reviewed: No Studies - Discharge Plan Condition: Stable Disposition: HOME Prescriptions: DOXYcycline CAP(*) [DOXYcycline 100MG CAP(*)] 100 mg PO BID #20 cap Ibuprofen TAB* [Motrin TAB* 600 MG] 600 mg PO Q6H PRN #30 tab PRN Reason: Pain Patient Education Materials: Pharyngitis (ED), Ear Infection (ED) Forms: *Work Release Referrals: Patricia Arnold BAR[facility]ER [Primary Care Provider] - 3 Days Additional Instructions: 1-Please take the full course of the antibiotic to avoid resistance. Take yogurt w/ probiotic or Culturelle to protect your GI system 2-Please take ibuprofen PO q6-8hrs prn as instructed after meals to alleviate pain and swelling. Increase fluid intake, eat well, rest and avoid strenuous exercise 3-If symptoms do not improve or worsen please return to the urgent care or f/u with your PCP in 3 days for further evaluation and treatment. - Billing Disposition and Condition Condition: STABLE Disposition: Home
== END 2019-03-11 12:08 | disposition home or self-care (01) ==
LOC: UCCORT 11:10
DX: J02.9 Acute pharyngitis, unspecified (principal); H66.92 Otitis media, unspecified, left ear; R51 Headache; E11.9 Type 2 diabetes mellitus without complications; Z87.09 Personal history of other diseases of the respiratory system; F17.210 Nicotine dependence, cigarettes, uncomplicated; Z88.0 Allergy status to penicillin; Z88.1 Allergy status to other antibiotic agents
CPT/HCPCS: 87651; 99212; G0463

== ENCOUNTER 2019-03-13 20:28 | Emergency (ER) | payer OTHER ==
[2019-03-13 20:46] VITALS: BP 127/84
--- NOTE | 2019-03-13 21:06 | UC ---
Eye Complaint HPI - HPI Summary HPI Summary: Pt c/o left eye redness, burning sensation, and clear discharge. Pt is concerned that she has pink eye. - History of Current Complaint Chief Complaint: UCEye Stated Complaint: LEFT EYE CONCERN Time Seen by Provider: 03/13/19 21:01 Hx Obtained From: Patient Hx Last Menstrual Period: 03/11/19 ?: No Onset/Duration: Sudden Onset, Still Present Timing: Constant Severity Initially: Mild Severity Currently: Mild Pain Intensity: 0 Character: Foreign Body Sensation Aggravating Factor(s): Nothing Alleviating Factor(s): Nothing Associated Signs And Symptoms: Positive: Drainage (Clear), Drainage (Purulent) - pt states both clear and white discharge, Swelling - Risk Factors Penetrating Injury Risk Factor: Negative Acute Glaucoma Risk Factors: Negative - Allergies/Home Medications Allergies/Adverse Reactions: Allergies Allergy/AdvReac Type Severity Reaction Status Date / Time amoxicillin Allergy Hives Verified 03/13/19 20:39 cephalexin [From Keflex] Allergy Hives Verified 03/13/19 20:39 Penicillins Allergy Hives Verified 03/13/19 20:39 PMH/Surg Hx/FS Hx/Imm Hx Previously Healthy: Yes - Surgical History Surgical History: Yes Surgery Procedure, Year, and Place: appy - Family History Known Family History: Positive: Hypertension, Diabetes - Social History Occupation: Employed Full-time Lives: With Family Alcohol Use: None Substance Use Type: None Smoking Status (MU): Former Smoker Type: Cigarettes Amount Used/How Often: 1/2 pack daily Have You Smoked in the Last Year: Yes When Did the Patient Quit Smoking/Using Tobacco: 02/25/19 Household Exposure Type: Cigarettes Review of Systems All Other Systems Reviewed And Are Negative: Yes Constitutional: Positive: Negative Skin: Positive: Negative Eyes: Positive: Drainage, Eye Redness ENT: Positive: Negative Respiratory: Positive: Negative Cardiovascular: Positive: Negative Gastrointestinal: Positive: Negative Genitourinary: Positive: Negative Motor: Positive: Negative Neurovascular: Positive: Negative Musculoskeletal: Positive: Negative Neurological: Positive: Negative Psychological: Positive: Negative Is Patient Immunocompromised?: No Physical Exam Triage Information Reviewed: Yes Appearance: Well-Appearing Vital Signs: Initial Vital Signs Temp 98.3 F 03/13/19 20:41 Pulse 90 03/13/19 20:41 Resp 24 03/13/19 20:41 BP 127/84 03/13/19 20:41 Pulse Ox 100 03/13/19 20:41 Vital Signs Reviewed: Yes Eyes: Positive: Conjunctiva Inflamed, Discharge - clear, ENT Exam: Normal Dental Exam: Normal Neck exam: Normal Respiratory Exam: Normal Respiratory: Positive: No respiratory distress Cardiovascular Exam: Normal Musculoskeletal Exam: Normal Neurological Exam: Normal Psychological Exam: Normal Skin Exam: Normal Eye Complaint Course/Dx - Differential Dx/Diagnosis Differential Diagnosis/HQI/PQRI: Conjunctivitis Provider Diagnosis: Conjunctivitis Discharge - Sign-Out/Discharge Documenting (check all that apply): Patient Departure All imaging exams completed and their final reports reviewed: No Studies - Discharge Plan Condition: Stable Disposition: HOME Prescriptions: Ofloxacin 0.3% (Eye Drop) [Ocuflox OPTH 0.3% (Eye Drop)] 2 drop LEFT EYE Q8H 7 Days #1 btl Patient Education Materials: Conjunctivitis (ED) Forms: *Work Release Referrals: Patricia Arnold NP [Primary Care Provider] - If Needed Aman Roy MD [Medical Doctor] - If Needed - Billing Disposition and Condition Condition: STABLE Disposition: Home
== END 2019-03-13 21:13 | disposition home or self-care (01) ==
LOC: UCCORT 20:28
DX: H10.32 Unspecified acute conjunctivitis, left eye (principal); Z88.0 Allergy status to penicillin; Z88.8 Allergy status to other drugs, medicaments and biological substances; Z87.891 Personal history of nicotine dependence
CPT/HCPCS: 99212; G0463

== ENCOUNTER 2019-05-21 10:33 | Emergency (ER) | payer OTHER ==
[2019-05-21 10:54] VITALS: BP 131/83
--- NOTE | 2019-05-21 11:07 | UC ---
Lower Extremity/Ankle HPI - HPI Summary HPI Summary: Pt presnts with c/o sudden onset of left hip, upper thigh, and knee pain. Pt denies injury or repetitive motion. Pt states she missed stepped [place] and fell onto right knee. Pt has been favoring left knee and putting more weight on left leg. - History of Current Complaint Stated Complaint: LT LEG PAIN Time Seen by Provider: 05/21/19 10:47 Hx Obtained From: Patient Hx From Patient Unobtainable Due To: Dementia Hx Last Menstrual Period: HAS NEXPLAMON, DOES NOT HAVE REG PERIODS ?: No Onset/Duration: Sudden Onset, Still Present Severity Initially: Moderate Severity Currently: Moderate Pain Intensity: 6 Aggravating Factor(s): Standing, Ambulation Alleviating Factor(s): Rest, Elevation Able to Bear Weight: Yes - painful - Risk Factors Gout Risk Factors: Obesity DVT Risk Factors: Negative Septic Arthritis Risk Factor: Negative - Allergies/Home Medications Allergies/Adverse Reactions: Allergies Allergy/AdvReac Type Severity Reaction Status Date / Time amoxicillin Allergy Hives Verified 05/21/19 10:45 cephalexin [From Keflex] Allergy Hives Verified 05/21/19 10:45 Penicillins Allergy Hives Verified 05/21/19 10:45 Home Medications: Home Medications Aspirin/Acetaminophen/Caffeine [Excedrin Migraine Caplet] 2 each PO PRN [History] Etonogestrel [Nexplanon] 68 mg IMPLANT 05/21/19 [History] PMH/Surg Hx/FS Hx/Imm Hx Previously Healthy: Yes - Surgical History Surgical History: Yes Surgery Procedure, Year, and Place: appy - Family History Known Family History: Positive: Hypertension, Diabetes - Social History Occupation: Employed Full-time Lives: With Family Alcohol Use: Rare Substance Use Type: None Smoking Status (MU): Heavy Every Day Tobacco Smoker Type: Cigarettes Amount Used/How Often: 1/2 PPD Have You Smoked in the Last Year: Yes When Did the Patient Quit Smoking/Using Tobacco: 02/25/19 Household Exposure Type: Cigarettes - Immunization History Vaccination Up to Date: Yes Review of Systems All Other Systems Reviewed And Are Negative: Yes Constitutional: Positive: Negative Skin: Positive: Negative Eyes: Positive: Negative ENT: Positive: Negative Respiratory: Positive: Negative Cardiovascular: Positive: Negative Gastrointestinal: Positive: Negative Genitourinary: Positive: Negative Neurovascular: Positive: Other - c/o painwith ROM Musculoskeletal: Positive: Myalgia Neurological: Positive: Negative Psychological: Positive: Negative Is Patient Immunocompromised?: No Physical Exam Triage Information Reviewed: Yes Appearance: Pain Distress - with movement, Obese Vital Signs: Initial Vital Signs Temp 97.8 F 05/21/19 10:47 Pulse 94 05/21/19 10:47 Resp 16 05/21/19 10:47 BP 131/83 05/21/19 10:47 Pulse Ox 99 05/21/19 10:47 Vital Signs Reviewed: Yes Eye Exam: Normal ENT Exam: Normal Dental Exam: Normal Neck exam: Normal Respiratory: Positive: No respiratory distress Musculoskeletal: Positive: Other: - c/o pain with ROM ad palpation Neurological Exam: Normal Psychological Exam: Normal Skin Exam: Normal Lower Extremity Course/Dx - Differential Dx/Diagnosis Differential Diagnosis/HQI/PQRI: Sprain, Strain Provider Diagnosis: Leg pain, anterior, Leg pain, left Discharge - Sign-Out/Discharge Documenting (check all that apply): Patient Departure All imaging exams completed and their final reports reviewed: No Studies - Discharge Plan Condition: Stable Disposition: HOME Patient Education Materials: Muscle Strain (ED), Ice Pack Application (ED), Safe Use of NSAIDs (ED), Hip Pain (ED) Forms: *Work Release Referrals: Patricia Arnold NP [Primary Care Provider] - If Needed - Billing Disposition and Condition Condition: STABLE Disposition: Home
== END 2019-05-21 11:22 | disposition home or self-care (01) ==
LOC: UCCORT 10:33
DX: M79.605 Pain in left leg (principal); F17.210 Nicotine dependence, cigarettes, uncomplicated
CPT/HCPCS: 99211; G0463

== ENCOUNTER 2019-08-27 17:03 | Emergency (ER) | payer OTHER ==
--- OUTSIDE RECORDS SUMMARY | 2019-08-27 17:12 | XMS REPORT | Continuity of Care Document ---
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 Active Problems Provider Date Tobacco user Khadar Arnold FNP Onset: 12/17/2013 Type II diabetes mellitus uncontrolled Khadar Arnold FNP Onset: 12/17 Viremia Jessica Ocasio MD Onset: 06/19/2018 Acute cystitis Jessica Ocasio MD Onset: 06/19/2018 Social History Type Date Description Comments Sex Unknown ETOH Use Rarely consumes alcohol Tobacco Use Start: Unknown Light tobacco smoker (10 or fewer cigarettes/day) Smoking Status Reviewed: 08/14/19 Light tobacco smoker (10 or fewer cigarettes/day) Allergies, Adverse Reactions, Alerts Active Allergies Reaction Severity Comments Date Amoxicillin rash 04/02/2015 Keflex Urticaria 10/22/2015 Inactive Allergies NKDA 02/23/2015 Medications Active Medications SIG Qnty Indications Ordering Date Provider Fluconazole 1 by mouth once a 4tabs N76.0 Clayton, 08/14/2019 150mg week x 4 weeks Jenniferleigh, Tablets 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 Alcohol Pads use as needed with 200units E11.65 Clayton, 08/14/2019 70% checking sugars up to Jenniferleiti, Pads 5 x daily 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 Metformin HCL ER take 2 tablets by 180Tablet Clayton, 04/11/2019 mouth every day Jenniferleigh, 500mg Tablets ER 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 24HR Glyburide 1 by mouth every day 30tabs E11.65 [place], 01/09/2019 5mg Jenniferleigh, Tablets 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 Nexplanon lot [id number] right arm Z30.017 [place], 01/09/2019 68mg Khadar Implant 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 True Metrix Go use as directed for 1units bin, 02/17/2018 Blood Glucose blood sugar Khadar Meter monitoring 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 w/Device Kit True Metrix Blood use as directed up to 150units [place], 02/17/2018 Glucosetest Strips 5 times daily for Khadar blood sugar testing 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 Strips Lancets Ultra Thin use up to five times 150units [place], 02/17/2018 30G daily and as needed Jassi Rubalcava 30G Misc for blood sugar 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 testing Basaglar Kwikpen inject 10 units a 9ml bin, 04/13/2017 night and increase by Khadar, 100Unit/ML 1 unit nightly until 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 Solution up to 25 units Pen-Inject subcutaneously every evening MDD25 units Wrist Brace use as directed 1units G56.02 [place], 11/25/2015 Misc YVONNE RubalcavaP Wrist Brace use as directed 1units G56.01 [place], 11/25/2015 Mis ERNESTO Rubalcava Pen [place] 03/15" use with insulin 100units [place], 09/10/2015 device as directed Khadar 30G X 8 mm Misc 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 History Medications Nitrofurantoin Monohyd 1 tab by mouth 14caps Jessica Ocasio, 04/13/2019 - Macro twice a day for 04/20/2019 100mg Capsules 7 days Cleocin [address] of 3units Jessica Ocasio, 04/12/2019 - 100mg Suppository vagina at 04/12/2019 bedtime for 3 nights. Metronidazole 1 tab by mouth 14tabs Jessica Ocasio, 04/12/2019 - 250mg Tablets twice a day for 04/19/2019 7 days Medications Administered in Office Medication SIG Qnty Indications Ordering Provider Date Khadar Watson FNP 08/02/2017 Injection PPD Family Nurse 08/02/2017 Injection Immunizations CPT Code Status Date Vaccine Lot # [id number] Given 08/04/2017 Influenza Virus Vaccine Quadrivalent Iiv4 [place] [id number] [id number] Given 05/06/2017 Tdap injection [id number] Vital Signs Date Vital Result Comment 08/14/2019 2:36pm BP Systolic 144 mmHg BP Diastolic 101 mmHg Body Temperature 98.8 F Heart Rate 107 /min Respiratory Rate 18 /min Height 60 inches 5'0" Weight 225.00 lb BMI (Body Mass Index) 43.9 kg/m2 BSA (Body Surface Area) 1.96 m2 [place] body weight in kilograms 45 kg O2 % BldC Oximetry 97 % Ra 04/11/2019 1:46pm BP Systolic 112 mmHg BP Diastolic 70 mmHg Body Temperature 98.5 F Heart Rate 105 /min Weight 221.00 lb O2 % BldC Oximetry 97 % Results Test Date Facility Test Result H/L Range Note Comprehensive 08/14/[address] [facility] [address] Glucose 341 mg/dL High 74-106 1 Metabolic Panel [address] [place] [address] [phone] BUN 11 mg/dL Normal 7-18 Creatinine 0.9 mg/dL Normal 0.6-1.3 Glom Filtration Rate, Estimate >60 mL/min >60 If >60 mL/min >60 2 BUN/Creat 12.2 ratio Sodium 136 mmol/L Normal 136-145 Potassium 3.9 mmol/L Normal 3.5-5.1 Chloride 106 mmol/L Normal 98-107 Carbon Dioxide 23 mmol/L Normal 21-32 Anion Gap 7 mEq/L Low 8-16 Calcium 8.5 mg/dL Normal 8.5-10.1 Total Protein 7.2 g/dL Normal 6.4-8.2 Albumin 3.6 g/dL Normal 3.4-5.0 Globulin 3.6 g/dL Normal 1.9-4.3 Alb/Glob 1.0 ratio Bilirubin,Total 0.3 mg/dL Normal 0.2-1.0 Sgot/Ast 8 U/L Low 15-37 3 SGPT/Alt 16 U/L Normal 12-78 Alkaline Phosphatase 95 U/L Normal 45-117 Glycohemoglobin 08/14/[address] Glycohemoglobin 12.1 % High 4.2-6.3 4 A1c [address] [facility] (A1c) [place] [address] [phone] eAG 301 mg/dL Urine Dipstick 08/14/2019 [facility] Ua Color yellow Yellow Ua Clarity cloudy Clear Ua Leuko neg Negative Ua Nitrite neg Negative Ua Urobilinogen 3.5 High 0.2 - 1.0 E.U./dL Ua Protein pos Negative Ua PH 5.5 Low 6.5-7.5 Ua Blood pos Negative Ua Specific [place] 1.020 1.010-1.030 Ua Ketones neg Negative Ua Bilirubin neg Negative Ua Glucose pos Negative Affirm 04/11/[address] Trichomonas Negative [Negative] [address] [place] [address] [place] [address] [phone] Gardnerella vaginalis POSITIVE Abnormal [Negative] Tammie species Negative [Negative] 6 Chlam/GC/Trichomonas 04/11/[address] [place] Tr[place] [address] [place] [address] vaginalis,[place] [address] [phone] Ur Chlamydia trachomatis,PCR NEGATIVE Negative Ur Neisseria gonorrhoeae,PCR NEGATIVE Negative 7 Urine Culture 04/11/[address] Urine Culture STREP. Abnormal [address] [place] [address] AGALACTIA <[place] [address] NOTE> [phone] Quantity > 100,000 CFU/mL 9 Recommended Therapy: PENICILLIN OR AM <SEE NOTE> 10 Ast-GP67 04/11/[address] Penicillin G <=0.[address] [place] [phone] Tetracycline >=16 Resistant Ampicillin <=0.25 Susceptible Moxifloxacin 0.5 Susceptible Levofloxacin 2 Susceptible Vancomycin 1 Susceptible Urine Dipstick 04/11/2019 [facility] Inhouse Ua Color Yellow Yellow Ua Clarity clear Clear Ua Leuko negative Negative Ua Nitrite negative Negative Ua Urobilinogen 0.2 0.2 - 1.0 E.U./dL Ua Protein negative Negative Ua PH 5.5 Low 6.5-7.5 Ua Blood 80 Bobby/uL High Negative Ua Specific [place] 1.025 1.010-1.030 Ua Ketones negative Negative Ua Bilirubin negative Negative Ua Glucose 60 mmol/L High Negative Laboratory test 03/11/2019 [facility] Rapid Strep Negative Negative 11 finding [phone] Molecular 1 E11.65 2 Note: Persistent reduction for 3 months or more in an eGFR <60 mL/min/1.73 m2 defines CKD. Patients with eGFR values >/=60 mL/min/1.73 m2 may also have CKD if evidence of persistent proteinuria is present. The original MDRD equation for estimated GFR is not valid for patients less than 18 years of age. Additional information may be found at www.kdoqi.org. 3 Values below the stated reference ranges of AST and ALT can be seen in normal populations. Clinical correlation is suggested. 4 Elevated levels of HbA1c suggest the need for more aggressive treatment of glycemia. The [place] [employer] recommends that a primary goal of therapy should be a HbA1c of <7% and that physicians should re-evaluate the treatment regimen in patients with HbA1c values consistently >8%. 5 N76.0 6 Method: BD Affirm VPIII DNA Probe Assay 7 A negative result for either C. trachomatis and/or N. gonorrhoeae does not preclued an infection because results are dependent on adequate specimen collection, absence of inhibitors, and sufficient DNA to be detected. 8 STREP. AGALACTIAE (BETA GRP B) 9 > 100,000 CFU/mL 10 PENICILLIN OR AMPICILLIN. 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 Procedures Date Code Description Status 09/15/2017 [id number] Diabetic Foot Exam Completed Medical Devices Description No Information Available Encounters Type Date Location Provider Dx Diagnosis Office Visit 08/14/2019 [facility] Clayton N76.0 Acute vaginitis 2:30p ERNE[address] E11.65 Type 2 diabetes mellitus with hyperglycemia R03.0 Elevated blood-pressure reading, w/o diagnosis of htn Office Visit 04/11/2019 1:45p [facility] Cynthia Car N76.0 Acute vaginitis [facility] Assessments Date Code Description Provider 08/14/2019 N76.0 Acute vaginitis Khadar Arnold FNP 08/14/2019 E11.65 Type 2 diabetes mellitus with Khadar Arnold FNP hyperglycemia 08/14/2019 R03.0 Elevated blood-pressure reading, without Khadar Arnold FNP diagnosis of hypertension 04/11/2019 N76.0 Acute vaginitis Cynthia Car PA Plan of Treatment Future Appointment(s):10/03/2019 3:00 pm - Khadar Arnold FNP at [facility] RD08/14/2019 - Vidhya Arnoldestebansubhacodi, FNPN76.0 Acute vaginitisNew Medication:Fluconazole 150 mg - 1 by mouth once a week x 4 weeksNew Labs:Affirm Vaginitis Panel, Ordered: 08/14/19Comments:due to extensive amount of discharge , known uncontrolled DM will treat with 4 weeks of ljqdksyoG99.65 Type 2 diabetes mellitus with hyperglycemiaNew Medication:Alcohol Pads 70 % - use as needed with checking sugars up to 5 x dailyComments:Discussed restarting Basaglar and getting back on the wagon of tracking blood sugars. Will get updated labs today, meds refilled and then discuss in 6 jfrgxE88.0 Elevated blood-pressure reading, without diagnosis of hypertension Functional Status Description No Information Available Mental Status Description No Information Available Referrals Description No Information Available
[2019-08-27] MEDS ORDERED: Azithromycin TAB* 250 MG PO ONE (18:54)
--- NOTE | 2019-08-27 18:54 | ED ---
Throat Pain/Nasal Congestion - HPI Summary HPI Summary: 29 yr old with the complaint of left ear pain. Onset this morning. She also complains of sore throat. No change in hearing, no discharge from the ear. No other complaints. She denies nasal drainage. - History of Current Complaint Chief Complaint: UCEar Time Seen by Provider: 08/27/19 18:44 - Allergies/Home Medications Allergies/Adverse Reactions: Allergies Allergy/AdvReac Type Severity Reaction Status Date / Time amoxicillin Allergy Hives Verified 08/27/19 17:32 cephalexin [From Keflex] Allergy Hives Verified 08/27/19 17:32 Penicillins Allergy Hives Verified 08/27/19 17:32 PMH/Surg Hx/FS Hx/Imm Hx Endocrine/Hematology History: Reports: Hx Diabetes - TYPE 2 - Surgical History Surgery Procedure, Year, and Place: appy Infectious Disease History: No Infectious Disease History: Denies: Traveled Outside the in Last 30 Days - Family History Known Family History: Positive: Hypertension, Diabetes - Social History Occupation: Employed Full-time Alcohol Use: None Substance Use Type: Reports: None Smoking Status (MU): Heavy Every Day Tobacco Smoker Type: Cigarettes Amount Used/How Often: 1/2 PPD Have You Smoked in the Last Year: Yes Review of Systems Constitutional: Negative Positive: Ear Ache All Other Systems Reviewed And Are Negative: Yes Physical Exam Triage Information Reviewed: Yes Vital Signs On Initial Exam: Initial Vitals Temp Pulse Resp BP Pulse Ox 98.4 F 92 18 112/72 97 08/27/19 17:34 08/27/19 17:34 08/27/19 17:34 08/27/19 17:34 08/27/19 17:34 Vital Signs Reviewed: Yes Appearance: Positive: Well-Appearing, No Pain Distress Skin: Positive: Warm, Skin Color Reflects Adequate Perfusion Eyes: Positive: EOMI ENT: Positive: TM red - left TM with erythema, and retraction of TM.. Negative : Nasal congestion Diagnostics - Vital Signs Vital Signs Temp Pulse Resp BP Pulse Ox 08/27/19 17:34 98.4 F 92 18 112/72 97 - Laboratory Lab Statement: Any lab studies that have been ordered have been reviewed, and results considered in the medical decision making process. EENT Course/Dx - Course Course Of Treatment: 29 yr old with left OM. Rx Biaxin. - Diagnoses Provider Diagnoses: Otitis media, left Discharge ED - Sign-Out/Discharge Documenting (check all that apply): Patient Departure All imaging exams completed and their final reports reviewed: No Studies - Discharge Plan Condition: Good Disposition: HOME Prescriptions: Clarithromycin TAB* [Biaxin 500 MG TAB*] 500 mg PO BID #20 tab Patient Education Materials: Ear Infection (ED) Referrals: Patricia Arnold NP [Primary Care Provider] - 2 Days - Billing Disposition and Condition Condition: GOOD Disposition: Home
[2019-08-27 18:57] VITALS: BP 124/82
== END 2019-08-27 18:58 | disposition home or self-care (01) ==
LOC: UCCORT 17:03
DX: H66.92 Otitis media, unspecified, left ear (principal); E11.9 Type 2 diabetes mellitus without complications; F17.210 Nicotine dependence, cigarettes, uncomplicated; Z88.0 Allergy status to penicillin; Z88.1 Allergy status to other antibiotic agents
CPT/HCPCS: 99212; A9270-GY; G0463